=== PATIENT | female | born 1930 | race Caucasian/White ===

== ENCOUNTER 2018-02-16 11:09 | Emergency (ER) | payer MEDICARE, OTHER ==
[~2018-02-16] VITALS: Ht 157.5 cm; Wt 79.8 kg
[~2018-02-16 11:09] MED LIST: AC500T PO; AMOX-358 PO; AMX500CIP; APIX5TAB PO; ASP81TEC PO; BALS750C PO; BENZ100C18 PO; BENZ200C25 PO; CANASA SUPP; CEFD300C PO; CEFD300C3 PO; CEFU500T PO; CETI10CA PO; CETI10TA17 PO; CITA10TA7 PO; CITA10TA70 PO; CLD600T PO; COLAZOL; DIGO-20 PO; FENO135C PO; GFN600TCR PO; GLYC2TAB PO; HYZAAR; IPRA3AMP11 INH; LOSA1TAB15 PO; Loperamide Hcl PO; MERC50TA10 PO; MESA10002 RC; MESALAMINE 1000 MG RC; METF500T5 PO; METH4TAB PO; METO-272 PO; METO25TA PO; MULT1TAB63 PO; OMG1KC PO; PANT40TA3 PO; PRAM0.5T9 PO; PRAM1.5T3 PO; PRD10T PO; SIMV40TA2 PO; TRAM50TA2 PO; WARF5TAB PO; WRF5T PO; [UNRECOGNIZED DRUG - CODE]
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
--- NOTE | 2018-02-16 12:06 | ED Chest Pain ---
General Chief Complaint: Chest Pain Stated Complaint: CP/SOA Nursing Triage Note: ARRIVED VIA EMS FROM [facility]. STATES AT 1000 SHE STARTED FEELING A TWINGE IN HER LEFT ARMPIT THAT DEVELOPED INTO BACK PAIN. Nursing Sepsis Screen: No Definite Risk Source: patient, family Exam Limitations: no limitations History of Present Illness Date Seen by Provider: Feb 16, 2018 Time Seen by Provider: 12:00 Initial Comments The patient is an 87-year-old white female, grandmother of a high school friend of my son's. She was at [employer] this morning and was singing a him when she began to have left-sided chest pain which then radiated to the shoulder and arm pit. She has recently had a pacemaker implantation. The pain is now gone. Timing/Duration: 1-3 hours Severity/Quality: mild Location: substernal, shoulder Radiation: shoulders Modifying Factors: improves with antacids ASA po WASTE REMOVALIST: No NTG SL WASTE REMOVALIST: No Allergies and Home Medications Allergies Coded Allergies: Sulfa (Sulfonamide Antibiotics) (Verified Allergy, Unknown, 07/22/06) Home Medications Acetaminophen 500 Mg Tablet, 1,000 MG PO Q4H PRN for HEADACHE, (Reported) TAKES 2 (500MG) TABLETS Apixaban 5 Mg Tablet, 5 MG PO BID, (Reported) Aspirin 81 Mg Tabec, 162 MG PO DAILY, (Reported) TAKES 2 (81MG) TABLETS Balsalazide Disodium 750 Mg Capsule, 2,250 MG PO BID, (Reported) TAKE 3 (750 MG) TABLETS TID Calcium/Vitamin D 600 Mg Tab, 2 TAB PO HS, (Reported) Cetirizine HCl 10 Mg Tablet, 10 MG PO DAILY PRN for ALLRGIES, (Reported) Citalopram Hydrobromide 10 Mg Tablet, 10 MG PO HS, (Reported) Digoxin 125 Mcg Tablet, 125 MCG PO DAILY, (Reported) Fenofibric Acid (Choline) 135 Mg Capsule.dr, 135 MG PO HS, (Reported) Glycopyrrolate 2 Mg Tablet, 2 MG PO BID, (Reported) Losartan/Hydrochlorothiazide 1 Tab Tablet, 1 TAB PO DAILY, (Reported) Metformin HCl 500 Mg Tablet, 500 MG PO BID, (Reported) Metoprolol Succinate 50 Mg Tab.sr.24h, 50 MG PO HS, (Reported) Multivitamins 1 Ea Tablet, 1 TAB PO DAILY, (Reported) Pramipexole Di-HCl 1.5 Mg Tablet, 1.5 MG PO BID, (Reported) takes morning and noon Simvastatin 40 Mg Tablet, 40 MG PO HS, (Reported) Patient Home Medication List Home Medication List Reviewed: Yes Review of Systems Constitutional: see HPI EENTM: No Symptoms Reported Respiratory: No Symptoms Reported Gastrointestinal: No Symptoms Reported Genitourinary: No Symptoms Reported Musculoskeletal: no symptoms reported Skin: no symptoms reported Psychiatric/Neurological: No Symptoms Reported Endocrine: No Symptoms Reported Hematologic/Lymphatic: No Symptoms Reported Past Ymbfmyl-Sigpya-Ixlbrn Hx Patient Social History Alcohol Use: Denies Use Alcohol Beverage of Choice: Rum Recreational Drug Use: No Smoking Status: Never a Smoker Recent Foreign Travel: No Contact w/Someone Who Travel: No Recent Infectious Disease Expo: No Recent Hopitalizations: No Immunizations Up To Date Tetanus Booster (TDap): More than 5yrs PED Vaccines UTD: No Date of Pneumonia Vaccine: Jan 24, 2013 Date of Influenza Vaccine: Aug 03, 2016 Seasonal Allergies Seasonal Allergies: No Past Medical History Surgeries: Yes (pacemaker) Adenoidectomy, Appendectomy, Cardiac, CABG, Hysterectomy, Orthopedic, Pacemaker , Tonsillectomy Respiratory: No Asthma Currently Using CPAP: No Currently Using BIPAP: No Cardiac: Yes Atrial Fibrillation, Coronary Artery Disease, Hypertension Neurological: Yes Parkinson's Disease 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: No Female 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: 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 Sexually Transmitted Disease: No HIV/AIDS: No Genitourinary: No Gastrointestinal: Yes Colitis Musculoskeletal: Yes Arthritis Endocrine: Yes Diabetes, Non-Insulin dep Cataract Loss of Vision: Denies Hearing Impairment: Hard of Hearing Cancer: No Skin Psychosocial: No Integumentary: No Blood Disorders: No Family Medical History Cardiovascular disease 19 FATHER, , Age:90, Onset:Unknown 19 MOTHER, , Age:86, Onset:Unknown Completed stroke 19 FATHER, , Age:90, Onset:Unknown 19 MOTHER, , Age:86, Onset:Unknown No Family History of: AIDS Abdominal aortic aneurysm [place]'s disease Alcoholism Alzheimer's disease Aphasia Arthritis Asthma Cancer of mouth Cataracts Colon cancer Congenital disease Congenital heart disease Coronary thrombosis Cystic fibrosis Deafness or hearing loss Dementia Diabetes mellitus Drug abuse Dysphasia Fibrocystic disease of breast Gastroenteritis Glaucoma Headache disorder Hypercholesterolemia Hypertension Infertility Kidney disease Myocardial infarction Neoplasm Not obtainable due to adoption Osteoporosis Parkinson's disease Prostate cancer Psychosocial problem Respiratory disorder Seizure disorder Severe allergy Thyroid disease Tuberculosis Visual disorder Heart Disease, Hypertension, Stroke Physical Exam Vital Signs Vital Signs - First Documented 02/16/18 11:09 Temp 98.0 Pulse 75 Resp 18 B/P (MAP) 143/82 (102) Pulse Ox 98 Capillary Refill : Less Than 3 Seconds General Appearance: No Apparent Distress, WD/WN HEENT: Normal ENT Inspection Neck: Normal Inspection Respiratory: Chest Non Tender, Lungs Clear, Normal Breath Sounds, No Accessory Muscle Use, No Respiratory Distress Cardiovascular: Regular Rate, Rhythm, Other Gastrointestinal: Normal Bowel Sounds, No Organomegaly, No Pulsatile Mass, Non Tender Extremity: Normal Capillary Refill, Normal Inspection, Normal Range of Motion, Non Tender, No Calf Tenderness, No Pedal Edema Neurologic/Psychiatric: Alert, Oriented x3, No Motor/Sensory Deficits, Normal Mood/Affect Skin: Normal Color, Warm/Dry Lymphatic: No Adenopathy Progress/Results/Core Measures Lab Results Laboratory Tests Test 02/16/18 11:20 Range/Units White Blood Count 5.8 4.3-11.0 10^3/uL Red Blood Count 4.22 L 4.35-5.85 10^6/uL Hemoglobin 12.1 11.5-16.0 G/DL Hematocrit 36 35-52 % Mean Corpuscular Volume 86 80-99 FL Mean Corpuscular Hemoglobin 29 25-34 PG Mean Corpuscular Hemoglobin Concent 34 32-36 G/DL Red Cell Distribution Width 13.6 10.0-14.5 % Platelet Count 270 130-400 10^3/uL Mean Platelet Volume 11.7 H 7.4-10.4 FL Neutrophils (%) (Auto) 60 42-75 % Lymphocytes (%) (Auto) 28 12-44 % Monocytes (%) (Auto) 11 0-12 % Eosinophils (%) (Auto) 1 0-10 % Basophils (%) (Auto) 1 0-10 % Neutrophils # (Auto) 3.4 1.8-7.8 X 10^3 Lymphocytes # (Auto) 1.6 1.0-4.0 X 10^3 Monocytes # (Auto) 0.6 0.0-1.0 X 10^3 Eosinophils # (Auto) 0.0 0.0-0.3 10^3/uL Basophils # (Auto) 0.0 0.0-0.1 10^3/uL Sodium Level 133 L 135-145 MMOL/L Potassium Level 4.1 3.6-5.0 MMOL/L Chloride Level 100 98-107 MMOL/L Carbon Dioxide Level 21 21-32 MMOL/L Anion Gap 12 5-14 MMOL/L Blood Urea Nitrogen 19 H 7-18 MG/DL Creatinine 0.79 0.60-1.30 MG/DL Estimat Glomerular Filtration Rate > 60 BUN/Creatinine Ratio 24 Glucose Level 108 H 70-105 MG/DL Calcium Level 9.8 8.5-10.1 MG/DL Total Bilirubin 0.5 0.1-1.0 MG/DL Aspartate Amino Transf (AST/SGOT) 22 5-34 U/L Alanine Aminotransferase (ALT/SGPT) 11 0-55 U/L Alkaline Phosphatase 43 40-136 U/L Troponin I < 0.30 <0.30 NG/ML Total Protein 7.3 6.4-8.2 GM/DL Albumin 4.2 3.2-4.5 GM/DL My Orders Orders - JAILYN MILLER MD Ekg Tracing (02/16/18 11:56) Cbc With Automated Diff (02/16/18 11:56) Comprehensive Metabolic Panel (02/16/18 11:56) Troponin I (02/16/18 11:56) Chest 1 View, Ap/Pa Only (02/16/18 11:56) Vital Signs/I&O 02/16/18 11:09 Temp 98.0 Pulse 75 Resp 18 B/P (MAP) 143/82 (102) Pulse Ox 98 Blood Pressure Mean: 102 Departure Communication (Admissions) 1308 the negative workup was reported to the patient and her . Impression Primary Impression: chest pain not myocardial Disposition: 01 HOME, SELF-CARE Condition: Stable/Unchanged Departure-Patient Inst. Decision time for Depature: 13:07 Referrals: DOMINICK BOYD MD (PCP/Family) Primary Care Physician Add. Discharge Instructions: All discharge instructions reviewed with patient and/or family. Voiced understanding. Resume usual activities JAILYN MILLER MD Feb 16, 2018 12:06
[2018-02-16 12:10] LABS: BASOPHILS % (AUTO) 1 % (0-10); EOSINOPHILS % (AUTO) 1 % (0-10); HEMATOCRIT 36 % (35-52); HEMOGLOBIN 12.1 G/DL (11.5-16.0); LYMPHOCYTES # (AUTO) 1.6 X 10^3 (1.0-4.0); LYMPHOCYTES % (AUTO) 28 % (12-44); MEAN CORPUSCULAR HEMOGLOBIN 29 PG (25-34); MEAN CORPUSCULAR HGB CONC 34 G/DL (32-36); MEAN CORPUSCULAR VOLUME 86 FL (80-99); MEAN PLATELET VOLUME 11.7 FL (7.4-10.4); MONOCYTES # (AUTO) 0.6 X 10^3 (0.0-1.0); MONOCYTES % (AUTO) 11 % (0-12); NEUTROPHILS # (AUTO) 3.4 X 10^3 (1.8-7.8); NEUTROPHILS % (AUTO) 60 % (42-75); PLATELET COUNT 270 10^3/uL (130-400); RED BLOOD COUNT 4.22 10^6/uL (4.35-5.85); RED CELL DISTRIBUTION WIDTH 13.6 % (10.0-14.5); WHITE BLOOD COUNT 5.8 10^3/uL (4.3-11.0)
[2018-02-16 12:19] LABS: ALANINE AMINOTRANSFERASE 11 U/L (0-55); ALBUMIN 4.2 GM/DL (3.2-4.5); ALKALINE PHOSPHATASE 43 U/L (40-136); BILIRUBIN,TOTAL 0.5 MG/DL (0.1-1.0); BUN/CREATININE RATIO 24; CALCIUM 9.8 MG/DL (8.5-10.1); CARBON DIOXIDE 21 MMOL/L (21-32); CHLORIDE 100 MMOL/L (98-107); CREATININE SERUM 0.79 MG/DL (0.60-1.30); GFR ESTIMATED > 60; GLUCOSE 108 MG/DL (70-105); POTASSIUM 4.1 MMOL/L (3.6-5.0); SODIUM 133 MMOL/L (135-145); TOTAL PROTEIN 7.3 GM/DL (6.4-8.2)
--- NOTE | 2018-02-16 12:41 | Diagnostic Imaging Report ---
EXAMINATION: Chest radiograph, portable AP view. DATE: 02/16/2018 at 1219 hours. INDICATION: An 87-year-old female, left lower chest pain. COMPARISON: 01/25/2016. FINDINGS: There are median sternotomy wires. There is a left-sided cardiac assist device with right atrial and right ventricular leads. The leads appear intact. There is no identified pneumothorax. There is no large pleural effusion. There is no identified focal airspace consolidation. IMPRESSION: No identified acute cardiopulmonary abnormality. Dictated by: Dictated on workstation # [id number]
[2018-02-16 13:38] VITALS: BP 143/79
== END 2018-02-16 13:38 | disposition home or self-care (01) ==
LOC: EDUNIT# 11:09 → ER 11:10
DX: R07.89 Other chest pain (principal); E11.9 Type 2 diabetes mellitus without complications; G25.81 Restless legs syndrome; I48.91 Unspecified atrial fibrillation; I25.10 Atherosclerotic heart disease of native coronary artery without angina pectoris; I10 Essential (primary) hypertension; Z90.710 Acquired absence of both cervix and uterus; Z87.19 Personal history of other diseases of the digestive system; Z90.89 Acquired absence of other organs; Z90.49 Acquired absence of other specified parts of digestive tract; Z95.1 Presence of aortocoronary bypass graft; Z95.0 Presence of cardiac pacemaker; Z79.84 Long term (current) use of oral hypoglycemic drugs; Z82.49 Family history of ischemic heart disease and other diseases of the circulatory system; Z79.82 Long term (current) use of aspirin; Z88.2 Allergy status to sulfonamides
CPT/HCPCS: 36415; 71045; 80053; 84484; 85025; 93005

== ENCOUNTER → 2018-05-26 | Outpatient (CLI) | payer MEDICARE, OTHER | LOC: CARD 11:10 | PROVIDERS: ATTEND Internal Medicine Cardiovascular Disease | DX: I48.91 Unspecified atrial fibrillation (principal); I25.10 Atherosclerotic heart disease of native coronary artery without angina pectoris; I10 Essential (primary) hypertension; E78.5 Hyperlipidemia, unspecified; I49.5 Sick sinus syndrome; I08.1 Rheumatic disorders of both mitral and tricuspid valves | CPT/HCPCS: 93306 ==

== ENCOUNTER 2018-07-29 06:53 | Inpatient (IN) | payer MEDICARE, OTHER ==
[~2018-07-29] VITALS: Ht 165.1 cm; Wt 76.4 kg
[~2018-07-29 06:53] MED LIST changes: +METF-397 PO; -METF500T5 PO
[2018-07-29] MEDS ORDERED: NS IV 500 ML 500 ML IV ONE (08:25)
[2018-07-29 08:35] LABS: BASOPHILS % (AUTO) 1 % (0-10); EOSINOPHILS % (AUTO) 1 % (0-10); HEMATOCRIT 32 % (35-52); HEMOGLOBIN 10.6 G/DL (11.5-16.0); LYMPHOCYTES % (AUTO) 18 % (12-44); MEAN CORPUSCULAR HEMOGLOBIN 28 PG (25-34); MEAN CORPUSCULAR HGB CONC 33 G/DL (32-36); MEAN CORPUSCULAR VOLUME 85 FL (80-99); MEAN PLATELET VOLUME 10.1 FL (7.4-10.4); MONOCYTES # (AUTO) 0.6 X 10^3 (0.0-1.0); MONOCYTES % (AUTO) 11 % (0-12); NEUTROPHILS # (AUTO) 3.8 X 10^3 (1.8-7.8); NEUTROPHILS % (AUTO) 71 % (42-75); PLATELET COUNT 308 10^3/uL (130-400); RED CELL DISTRIBUTION WIDTH 14.8 % (10.0-14.5); WHITE BLOOD COUNT 5.4 10^3/uL (4.3-11.0)
--- NOTE | 2018-07-29 08:35 | ED GI ---
General Chief Complaint: Rect Problems Stated Complaint: RECTAL BLEEDING Nursing Triage Note: TO ROOM C/O HAS NOTICED RED BLOOD IN STOOL FOR 3 WEEKS. HAS NOT HAD ANY FOLLOW UP WITH HER DR. REPORTS THAT SHE THINKS SHE HAS TO HAVE BM ALL THE TIME AFTER EATING SHE WILL GO TO BATHROOM AND TRY TO HAVE A BM. Sepsis Screen: No Definite Risk Source of Information: Patient Exam Limitations: No Limitations History of Present Illness Date Seen by Provider: Jul 29, 2018 Time Seen by Provider: 08:15 Initial Comments Here with report of blood in her stool or other the toilet paper for the last 3 weeks. Denies any significant pain but does feel like she has to have a bowel movement. She has been unable to have bowel movement has not passed any stool for a week or more. She states that she is still passing gas she believes. Every time she eats she tries to have a bowel movement but is unable to. Denies nausea or vomiting currently. Denies fever or chills. Timing/Duration: Other (3 weeks) Severity/Quality: Mild, Cramping Location: Generalized Abdomen Radiation: No Radiation Activities at Onset: None Modifying Factors: Worsens With Eating Associated Symptoms: No Fever/Chills, No Nausea/Vomiting, No Shortness of Air, No Weakness Allergies and Home Medications Allergies Coded Allergies: Sulfa (Sulfonamide Antibiotics) (Verified Allergy, Unknown, 07/22/06) Home Medications Acetaminophen 500 Mg Tablet, 1,000 MG PO Q4H PRN for HEADACHE, (Reported) TAKES 2 (500MG) TABLETS Apixaban 5 Mg Tablet, 5 MG PO BID, (Reported) Aspirin 81 Mg Tabec, 162 MG PO DAILY, (Reported) TAKES 2 (81MG) TABLETS Balsalazide Disodium 750 Mg Capsule, 2,250 MG PO BID, (Reported) TAKE 3 (750 MG) TABLETS TID Calcium/Vitamin D 600 Mg Tab, 2 TAB PO HS, (Reported) Cetirizine HCl 10 Mg Tablet, 10 MG PO DAILY PRN for ALLRGIES, (Reported) Citalopram Hydrobromide 10 Mg Tablet, 10 MG PO HS, (Reported) Digoxin 125 Mcg Tablet, 125 MCG PO DAILY, (Reported) Fenofibric Acid (Choline) 135 Mg Capsule.dr, 135 MG PO HS, (Reported) Glycopyrrolate 2 Mg Tablet, 2 MG PO BID, (Reported) Losartan/Hydrochlorothiazide 1 Tab Tablet, 1 TAB PO DAILY, (Reported) Metformin HCl 500 Mg Tablet, 500 MG PO BID, (Reported) Metoprolol Succinate 50 Mg Tab.sr.24h, 50 MG PO HS, (Reported) Multivitamins 1 Ea Tablet, 1 TAB PO DAILY, (Reported) Pramipexole Di-HCl 1.5 Mg Tablet, 1.5 MG PO BID, (Reported) takes morning and noon Simvastatin 40 Mg Tablet, 40 MG PO HS, (Reported) Patient Home Medication List Home Medication List Reviewed: Yes Review of Systems Review of Systems Constitutional: see HPI; No chills, No fever EENTM: No Symptoms Reported Respiratory: No Symptoms Reported Cardiovascular: No Symptoms Reported Gastrointestinal: See HPI, Constipated; Denies Nausea; Rectal Bleeding; Denies Vomiting Genitourinary: No Symptoms Reported Musculoskeletal: no symptoms reported All Other Systems Reviewed Negative Unless Noted: Yes Past Ojvpskl-Xuxqic-Loknmx Hx Past Med/Social Hx: Reviewed Nursing Past Med/Soc Hx Patient Social History Alcohol Use: Occasionally Uses Number of Drinks Today: DD Alcohol Beverage of Choice: Beer, Wine Recreational Drug Use: No Smoking Status: Never a Smoker Recent Foreign Travel: No Contact w/Someone Who Travel: No Recent Infectious Disease Expo: No Recent Hopitalizations: No Immunizations Up To Date Tetanus Booster (TDap): More than 5yrs PED Vaccines UTD: No Date of Pneumonia Vaccine: Jan 24, 2013 Date of Influenza Vaccine: Aug 03, 2016 Seasonal Allergies Seasonal Allergies: No Past Medical History Surgeries: Yes (pacemaker) Adenoidectomy, Appendectomy, Cardiac, CABG, Hysterectomy, Orthopedic, Pacemaker , Tonsillectomy Respiratory: No Asthma Currently Using CPAP: No Currently Using BIPAP: No Cardiac: Yes Atrial Fibrillation, Coronary Artery Disease, Hypertension Neurological: Yes Parkinson's Disease 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: No Female 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: 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 Sexually Transmitted Disease: No HIV/AIDS: No Genitourinary: No Gastrointestinal: Yes Colitis Musculoskeletal: Yes Arthritis Endocrine: Yes Diabetes, Non-Insulin dep Cataract Loss of Vision: Denies Hearing Impairment: Hard of Hearing Cancer: No Skin Psychosocial: No Integumentary: No Blood Disorders: No Family Medical History Reviewed Nursing Family Hx Cardiovascular disease 19 FATHER, , Age:90, Onset:Unknown 19 MOTHER, , Age:86, Onset:Unknown Completed stroke 19 FATHER, , Age:90, Onset:Unknown 19 MOTHER, , Age:86, Onset:Unknown No Family History of: AIDS Abdominal aortic aneurysm [place]'s disease Alcoholism Alzheimer's disease Aphasia Arthritis Asthma Cancer of mouth Cataracts Colon cancer Congenital disease Congenital heart disease Coronary thrombosis Cystic fibrosis Deafness or hearing loss Dementia Diabetes mellitus Drug abuse Dysphasia Fibrocystic disease of breast Gastroenteritis Glaucoma Headache disorder Hypercholesterolemia Hypertension Infertility Kidney disease Myocardial infarction Neoplasm Not obtainable due to adoption Osteoporosis Parkinson's disease Prostate cancer Psychosocial problem Respiratory disorder Seizure disorder Severe allergy Thyroid disease Tuberculosis Visual disorder Heart Disease, Hypertension, Stroke Physical Exam Vital Signs Vital Signs - First Documented 07/29/18 06:58 Temp 97.3 Pulse 70 Resp 18 B/P (MAP) 152/79 (103) Pulse Ox 98 O2 Delivery Room Air Capillary Refill : Less Than 3 Seconds Height/Weight/BMI Height: 5'4.00" Weight: 180lbs. 0.0oz. 81.536713wv; 30.9 BMI Method:Stated General Appearance: WD/WN, no apparent distress HEENT: PERRL/EOMI, pharynx normal Neck: full range of motion, supple Respiratory: lungs clear, normal breath sounds Cardiovascular: regular rate, rhythm, no murmur Gastrointestinal: normal bowel sounds, non tender, soft, no pulsatile mass Extremities: normal range of motion, non-tender, normal inspection Back: normal inspection, no CVA tenderness, no vertebral tenderness Neurologic/Psychiatric: alert, oriented x 3 Skin: normal color, warm/dry Progress/Results/Core Measures Results/Orders Lab Results Laboratory Tests Test 07/29/18 08:25 07/29/18 10:35 Range/Units White Blood Count 5.4 4.3-11.0 10^3/uL Red Blood Count 3.80 L 4.35-5.85 10^6/uL Hemoglobin 10.6 L 11.5-16.0 G/DL Hematocrit 32 L 35-52 % Mean Corpuscular Volume 85 80-99 FL Mean Corpuscular Hemoglobin 28 25-34 PG Mean Corpuscular Hemoglobin Concent 33 32-36 G/DL Red Cell Distribution Width 14.8 H 10.0-14.5 % Platelet Count 308 130-400 10^3/uL Mean Platelet Volume 10.1 7.4-10.4 FL Neutrophils (%) (Auto) 71 42-75 % Lymphocytes (%) (Auto) 18 12-44 % Monocytes (%) (Auto) 11 0-12 % Eosinophils (%) (Auto) 1 0-10 % Basophils (%) (Auto) 1 0-10 % Neutrophils # (Auto) 3.8 1.8-7.8 X 10^3 Lymphocytes # (Auto) 1.0 1.0-4.0 X 10^3 Monocytes # (Auto) 0.6 0.0-1.0 X 10^3 Eosinophils # (Auto) 0.0 0.0-0.3 10^3/uL Basophils # (Auto) 0.0 0.0-0.1 10^3/uL Sodium Level 133 L 135-145 MMOL/L Potassium Level 4.2 3.6-5.0 MMOL/L Chloride Level 101 98-107 MMOL/L Carbon Dioxide Level 22 21-32 MMOL/L Anion Gap 10 5-14 MMOL/L Blood Urea Nitrogen 17 7-18 MG/DL Creatinine 0.80 0.60-1.30 MG/DL Estimat Glomerular Filtration Rate > 60 BUN/Creatinine Ratio 21 Glucose Level 127 H 70-105 MG/DL Calcium Level 9.6 8.5-10.1 MG/DL Corrected Calcium 9.6 8.5-10.1 MG/DL Total Bilirubin 0.5 0.1-1.0 MG/DL Aspartate Amino Transf (AST/SGOT) 22 5-34 U/L Alanine Aminotransferase (ALT/SGPT) 12 0-55 U/L Alkaline Phosphatase 32 L 40-136 U/L C-Reactive Protein High Sensitivity 1.13 H 0.00-0.50 MG/DL Total Protein 7.2 6.4-8.2 GM/DL Albumin 4.0 3.2-4.5 GM/DL Urine Color YELLOW Urine Clarity CLEAR Urine pH 7 5-9 Urine Specific [place] 1.005 L 1.016-1.022 Urine Protein NEGATIVE NEGATIVE Urine Glucose (UA) NEGATIVE NEGATIVE Urine Ketones NEGATIVE NEGATIVE Urine Nitrite NEGATIVE NEGATIVE Urine Bilirubin NEGATIVE NEGATIVE Urine Urobilinogen NORMAL NORMAL MG/DL Urine Leukocyte Esterase NEGATIVE NEGATIVE Urine RBC (Auto) NEGATIVE NEGATIVE Urine RBC NONE /HPF Urine WBC 0-2 /HPF Urine Squamous Epithelial Cells 2-5 /HPF Urine Crystals NONE /LPF Urine Bacteria NEGATIVE /HPF Urine Casts NONE /LPF Urine Mucus NEGATIVE /LPF Urine Culture Indicated NO My Orders Orders - LANG,PEDRO D MD Cbc With Automated Diff (07/29/18 08:25) Comprehensive Metabolic Panel (07/29/18 08:25) Hs C Reactive Protein (07/29/18 08:25) Ua Culture If Indicated (07/29/18 08:25) Saline Lock/Iv-Start (07/29/18 08:25) Ns Iv 500 Ml (Sodium Chloride 0.9%) (07/29/18 08:25) Ct Abdomen/Pelvis W (07/29/18 08:57) Iohexol Injection (Omnipaque 350 Mg/Ml 1 (07/29/18 09:15) Ns (Ivpb) (Sodium Chloride 0.9%) (07/29/18 09:15) Contrast Received (Contrast Received) (07/29/18 09:30) Medications Given in ED Current Medications Medications Dose Ordered Sig/Maricarmen Route Start Time Stop Time Status Last Admin Dose Admin Iohexol 100 ml ONCE ONCE IV 07/29/18 09:15 07/29/18 09:16 DC 07/29/18 09:37 100 ML Sodium Chloride 250 ml ONCE ONCE IV 07/29/18 09:15 07/29/18 09:16 DC 07/29/18 09:37 80 ML Sodium Chloride 500 ml @ 0 mls/hr Q0M ONCE IV 07/29/18 08:25 07/29/18 08:29 DC 07/29/18 10:09 500 MLS/HR Vital Signs/I&O 07/29/18 06:58 Temp 97.3 Pulse 70 Resp 18 B/P (MAP) 152/79 (103) Pulse Ox 98 O2 Delivery Room Air Blood Pressure Mean: 103 Progress Progress Note : Progress Note Seen and evaluated. Rectal exam done and rectal vault is empty. Hemoccult positive stool. There is small hemorrhoid at the 12 o'clock position but nonbleeding currently. Given the absence of stool in the vault and the history of rectal bleeding, we will evaluate labs and possibly get CT scan. 0930: CT scan ordered and pending. Normal saline 500 mL bolus has been ordered. Monitor patient. 1130: Labs complete and CT results noted. I did discuss with her about outpatient options. With her are having difficulties with understanding of instructions and there is concerns about her ability to safely manage this at home at this point. Considering admission. I did discuss the case with Dr. Ford at 1147 he agrees to see the patient in consult. I did discuss the case with Dr. Mitchell at 1229 and she accepts patient for admission, inpatient status. She will write orders. Patient and family agree with plan. Diagnostic Imaging Diagonstic Imaging: CT Plain Films/CT/US/NM/MRI: abdomen, pelvis Comments VIA [facility] [place], [place] NAME: JEREMÍAS COLEMAN [facility] REC#: [id number] PT STATUS: REG ER : 1929 PHYSICIAN: PEDRO CROFT MD ADMIT DATE: 07/29/18/ER Draft Date of Exam:07/29/18 CT ABDOMEN/PELVIS W PROCEDURE: CT abdomen and pelvis with contrast. TECHNIQUE: Multiple contiguous axial images were obtained through the abdomen and pelvis after administration of intravenous contrast. INDICATION: Rectal bleeding. FINDINGS: There is cardiomegaly. The liver is normal in size without focal lesions. Gallbladder is surgically absent. There is no biliary ductal dilatation. Spleen is normal. The pancreas and adrenal glands are unremarkable. Kidneys are normal in appearance. Aorta is nonaneurysmal although does demonstrate moderate atherosclerotic calcification. Bowel gas pattern is nonspecific. There is a large amount of retained fecal material likely reflecting some degree of constipation. There is some mild mucosal thickening in the sigmoid colon and rectum. This is nonspecific however a colitis cannot be excluded. Bladder is normal. There are degenerative changes in the spine. IMPRESSION: Moderate amount of retained fecal material likely reflecting some degree of constipation. Additionally, there is some mucosal thickening of the sigmoid colon and rectum possibly reflecting colitis. Recommend clinical correlation. Degenerative changes in the spine. No other acute abnormality of the abdomen or pelvis. Dictated on workstation # [id number] Dict: 07/29/18 0956 Trans: 07/29/18 1017 DOMINGO [id number] Interpreted by: RAMAKRISHNA JOHNSON MD Electronically signed by: Reviewed: Reviewed by Me Departure Communication (Admissions) Time/Spoke to Admitting Phy: 12:29 Time/Spoke to Consulting Phy: 11:47 Impression Primary Impression: Colitis Additional Impressions: Rectal bleeding Constipation Qualified Codes: K59.00 - Constipation, unspecified Disposition: ADMITTED INPATIENT Condition: Stable Admissions Decision to Admit Reason: Admit from ER (General) Decision to Admit/Date: Jul 29, 2018 Time/Decision to Admit Time: 11:47 Departure-Patient Inst. Referrals: DOMINICK BOYD MD (PCP/Family) Primary Care Physician PEDRO CROFT MD Jul 29, 2018 08:35
[2018-07-29 08:49] LABS: ALANINE AMINOTRANSFERASE 12 U/L (0-55); ALKALINE PHOSPHATASE 32 U/L (40-136); BILIRUBIN,TOTAL 0.5 MG/DL (0.1-1.0); BUN/CREATININE RATIO 21; CALCIUM 9.6 MG/DL (8.5-10.1); CARBON DIOXIDE 22 MMOL/L (21-32); CHLORIDE 101 MMOL/L (98-107); GFR ESTIMATED > 60; GLUCOSE 127 MG/DL (70-105); POTASSIUM 4.2 MMOL/L (3.6-5.0); SODIUM 133 MMOL/L (135-145); TOTAL PROTEIN 7.2 GM/DL (6.4-8.2)
[2018-07-29] MEDS ORDERED: IOHEXOL 350 MG/ML 100 ML (OMNIPAQUE 350) VIAL IV ONE (09:15)
[2018-07-29] MEDS ORDERED: NS 250 ML (IVPB) BAG IV ONE (09:15)
[2018-07-29] MEDS ORDERED: RECEIVED CONTRAST (Hold Metformin) IV SCH (09:30)
--- NOTE | 2018-07-29 10:18 | Diagnostic Imaging Report ---
PROCEDURE: CT abdomen and pelvis with contrast. TECHNIQUE: Multiple contiguous axial images were obtained through the abdomen and pelvis after administration of intravenous contrast. INDICATION: Rectal bleeding. FINDINGS: There is cardiomegaly. The liver is normal in size without focal lesions. Gallbladder is surgically absent. There is no biliary ductal dilatation. Spleen is normal. The pancreas and adrenal glands are unremarkable. Kidneys are normal in appearance. Aorta is nonaneurysmal although does demonstrate moderate atherosclerotic calcification. Bowel gas pattern is nonspecific. There is a large amount of retained fecal material likely reflecting some degree of constipation. There is some mild mucosal thickening in the sigmoid colon and rectum. This is nonspecific however a colitis cannot be excluded. Bladder is normal. There are degenerative changes in the spine. IMPRESSION: Moderate amount of retained fecal material likely reflecting some degree of constipation. Additionally, there is some mucosal thickening of the sigmoid colon and rectum possibly reflecting colitis. Recommend clinical correlation. Degenerative changes in the spine. No other acute abnormality of the abdomen or pelvis. Dictated by: Dictated on workstation # [id number]
[2018-07-29 10:50] LABS: BILIRUBIN,URINE NEGATIVE (NEGATIVE); CLARITY,URINE CLEAR; COLOR,URINE YELLOW; GLUCOSE, URINE (UA) NEGATIVE (NEGATIVE); KETONES,URINE NEGATIVE (NEGATIVE); LEUKOCYTE ESTERASE ,URINE NEGATIVE (NEGATIVE); NITRITE,URINE NEGATIVE (NEGATIVE); PH,URINE 7 (5-9); PROTEIN,URINE NEGATIVE (NEGATIVE); UROBILINOGEN,URINE NORMAL (NORMAL)
[2018-07-29 11:08] LABS: BACTERIA,URINE NEGATIVE /HPF; WBC,URINE 0-2 /HPF
--- OUTSIDE RECORDS SUMMARY | 2018-07-29 12:54 | XMS REPORT | Continuity of Care Document ---
Author Author [facility] Organization [facility] Address Unknown Phone Unavailable Allergies Active Description Code Type Severity Reaction Onset Reported/Identified Relationship to Patient Clinical Status Yes promethazine [id number] Drug Allergy Unknown N/A 06/07/2006 Yes codeine [id number] Drug Allergy Unknown N/A 07/22/2006 Yes Sulfa (Sulfonamide Antibiotics) [id number] Drug Allergy Unknown N/A 2005 Medications There [...] DEB ROBERTO, DOMINICK Guerra Ot V76.12 12/05/2014 EDB ROBERTO, DOMINICK Guerra Ot 298.9 12/05/2014 DEB [...] DOMINICK Guerra Ot V12.54 06/20/2015 DEB ROBERTO, DOMINIKC Guerra Ot V76.12 07/12/2015 SHEKHAR UMANA Ot [...] PRASHANT ROBERTO, ADI Suarez Ot 429.3 09/22/2015 PRASHANT ROBERTO, ADI Suarez Ot V45.01 09/22/2015 PRASHANT ROBERTO, ADI [...] ROBERTO, ADI Suarez Ot V45.01 10/02/2015 PRASHANT ROBERTO, ADI Suarez Ot 401.9 [...] MD Ot I25.10 ATHSCL HEART DISEASE OF [place] CORONARY 10/03/2015 DOMINICK BOYD MD Ot I48.0 PAROXYSMAL ATRIAL FIBRILLATION 10/03/2015 DOMINICK BOYD MD Ot J01.00 ACUTE MAXILLARY SINUSITIS, UNSPECIFIED 10/03/2015 DOMINICK BYOD MD Ot J40 BRONCHITIS, NOT SPECIFIED ACUTE OR CH 10/03/2015 DOMINICK BOYD MD Ot J98.09 OTHER DISEASES OF BRONCHUS, NOT ELSEWHER 10/03/2015 DOMINICK BOYD MD Ot Z79.01 COMPENSATION DIRECTOR (CURRENT) USE OF ANTICOAGULANT 10/12/2015 Ot V76.12 [...] DOMINICK BOYD MD Ot V76.12 10/12/2015 DOMINICK BOYD MD Ot 298.9 10/12/2015 DOMINICK BOYD MD [...] PAC 01/26/2016 ADI CERDA MD Ot Z79.01 COMPENSATION DIRECTOR (CURRENT) USE OF ANTICOAGULANT 01/26/2016 ADI CERDA MD Ot Z79.899 OTHER SNF (CURRENT) DRUG THERAPY 02/06/2016 ADI CERDA MD [...] PAC 02/06/2016 ADI CERDA MD Ot Z79.01 SNF (CURRENT) USE OF ANTICOAGULANT 02/06/2016 ADI CERDA MD Ot Z79.899 OTHER SNF (CURRENT) DRUG THERAPY 07/24/2016 Ot 397.0 TRICUSPID [...] PERSONAL HX OF TIA, CEREBRAL INFARCTION 07/24/2016 DOIMNICK BOYD MD Ot V76.12 OTH SCREEN MAMMO-MALIGN [...] CAUSE STATUS 07/24/2016 CHANELL HORN Ot Z79.82 COMPENSATION DIRECTOR (CURRENT) USE OF ASPIRIN 07/24/2016 CHANELL HORN Ot Z79.899 OTHER COMPENSATION DIRECTOR (CURRENT) DRUG THERAPY 07/24/2016 CHANELL HORN Ot [...] CAUSE STATUS 07/25/2016 CHANELL HORN Ot Z79.82 SNF (CURRENT) USE OF ASPIRIN 07/25/2016 CHANELL HORN Ot Z79.899 OTHER SNF (CURRENT) DRUG THERAPY 07/25/2016 CHANELL HORN Ot [...] STATUS 09/30/2016 BK BETANCUR APRN Ot Z79.82 SNF (CURRENT) USE OF ASPIRIN 09/30/2016 BK BETANCUR APRN Ot Z79.84 COMPENSATION DIRECTOR (CURRENT) USE OF ORAL HYPOGLYC 09/30/2016 BK BETANCUR APRN Ot Z79.899 OTHER COMPENSATION DIRECTOR (CURRENT) DRUG THERAPY 10/02/2016 BK BETANCUR APRN [...] STATUS 10/02/2016 BK BETANCUR APRN Ot Z79.82 SNF (CURRENT) USE OF ASPIRIN 10/02/2016 BK BETANCUR APRN Ot Z79.84 SNF (CURRENT) USE OF ORAL HYPOGLYC 10/02/2016 BK BETANCUR APRN Ot Z79.899 OTHER SNF (CURRENT) DRUG THERAPY 10/02/2016 BK BETANCUR APRN [...] STATUS 10/02/2016 BK BETANCUR APRN Ot Z79.82 SNF (CURRENT) USE OF ASPIRIN 10/02/2016 BK BETANCUR APRN Ot Z79.84 SNF (CURRENT) USE OF ORAL HYPOGLYC 10/02/2016 BK BETANCUR APRN Ot Z79.899 OTHER COMPENSATION DIRECTOR (CURRENT) DRUG THERAPY 10/17/2016 Ot V76.12 OTH SCREEN MAMMO-MALIGN NEOPLASM OF [place] 10/17/2016 Ot V76.12 OTH SCREEN MAMMO-MALIGN NEOPLASM OF [place] 10/17/2016 Ot 813.05 FX RADIUS HEAD-CLOSED 10/17/2016 Ot E000.8 OTHER EXTERNAL CAUSE STATUS 10/17/2016 Ot E849.0 ACCIDENT IN HOME 10/17/2016 Ot E888.9 FALL NOS 10/17/2016 ADI CERDA MD Ot 397.0 TRICUSPID VALVE DISEASE 10/17/2016 ADI CERDA MD Ot 401.9 HYPERTENSION [...] Ot V76.12 OTH SCREEN MAMMO-MALIGN NEOPLASM OF [place] 06/04/2017 DOMINICK BOYD MD Ot 298.9 PSYCHOSIS NOS 06/04/2017 DOMINICK BOYD MD 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 06/04/2017 DOMINICK BOYD MD Ot V12.54 PERSONAL HX OF TIA, CEREBRAL INFARCTION 06/04/2017 DOMINICK BOYD MD Ot V76.12 OTH SCREEN MAMMO-MALIGN NEOPLASM OF [place] 06/04/2017 SHEKHAR UMANA K Ot 272.4 HYPERLIPIDEMIA NEC/NOS 06/04/2017 MARIELENA UMANATH K Ot 401.9 HYPERTENSION NOS 06/04/2017 MARIELENA MUANATH K Ot 414.00 CORON ATHEROSCLER NOS TYPE VESSEL, NATIV 06/04/2017 MARIANNE CRAWFORD SHEKHAR K Ot 427.31 ATRIAL FIBRILLATION 02/16/2018 ADI CERDA MD Ot 397.0 TRICUSPID VALVE DISEASE 02/16/2018 ADI CERDA MD Ot 401.9 HYPERTENSION NOS 02/16/2018 ADI CERDA MD Ot 414.00 CORON ATHEROSCLER NOS TYPE VESSEL, NATIV 02/16/2018 ADI CERDA MD Ot 424.0 MITRAL VALVE DISORDER 02/16/2018 ADI CERDA MD Ot 429.3 CARDIOMEGALY 02/16/2018 ADI CERDA MD Ot V45.01 CARDIAC PACEMAKER IN SITU 02/16/2018 ADI CERDA MD Ot 401.9 HYPERTENSION NOS 02/16/2018 ADI CERDA MD Ot 414.00 CORON ATHEROSCLER NOS TYPE VESSEL, NATIV 02/16/2018 ADI CERDA MD Ot V45.01 CARDIAC PACEMAKER IN SITU 02/16/2018 DOMINICK BOYD MD Ot V76.12 OTH SCREEN MAMMO-MALIGN NEOPLASM OF [place] 02/16/2018 DOMINICK BOYD MD Ot 298.9 PSYCHOSIS NOS 02/16/2018 DOMINICK BOYD MD 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 02/16/2018 DOMINICK BOYD MD Ot V12.54 PERSONAL HX OF TIA, CEREBRAL INFARCTION 02/16/2018 DOMINICK BOYD MD Ot V76.12 OTH SCREEN MAMMO-MALIGN NEOPLASM OF [place] 02/16/2018 SHEKHAR UMANA Ot 272.4 HYPERLIPIDEMIA NEC/NOS 02/16/2018 SHEKHAR UMANA Ot 401.9 HYPERTENSION NOS 02/16/2018 SHEKHAR UMANA Ot 414.00 CORON ATHEROSCLER NOS TYPE VESSEL, NATIV 02/16/2018 SHEKHAR UMANA Ot 427.31 ATRIAL FIBRILLATION 02/16/2018 JAILYN MILLER MD, Ot E11.9 TYPE 2 DIABETES MELLITUS WITHOUT COMPLIC 02/16/2018 JAILYN MILLER MD, Ot G25.81 RESTLESS LEGS SYNDROME 02/16/2018 JAILYN MILLER MD, Ot I10 ESSENTIAL (PRIMARY) HYPERTENSION 02/16/2018 JAILYN MILLER MD, Ot I25.10 ATHSCL HEART DISEASE OF [place] CORONARY 02/16/2018 JAILYN MILLER MD, Ot I48.91 UNSPECIFIED ATRIAL FIBRILLATION 02/16/2018 JAILYN MILLER MD, Ot R07.89 OTHER CHEST PAIN 02/16/2018 JAILYN MILLER MD, Ot Z79.82 SNF (CURRENT) USE OF ASPIRIN 02/16/2018 JALIYN MILLER MD, Ot Z79.84 SNF (CURRENT) USE OF ORAL HYPOGLYC 02/16/2018 JAILYN MILLER MD, Ot Z82.49 FAMILY HX OF ISCHEM HEART DIS AND OTH DI 02/16/2018 JAILYN MILLER MD, Ot Z87.19 PERSONAL HISTORY OF OTHER DISEASES OF TH 02/16/2018 JAILYN MILLER MD, Ot Z88.2 ALLERGY STATUS TO SULFONAMIDES STATUS 02/16/2018 JAILYN MILLER MD, Ot Z90.49 ACQUIRED ABSENCE OF OTHER SPECIFIED PART 02/16/2018 JAILYN MILLER MD, Ot Z90.710 ACQUIRED ABSENCE OF BOTH CERVIX AND UTER 02/16/2018 JAILYN MILLER MD, Ot Z90.89 ACQUIRED ABSENCE OF OTHER ORGANS 02/16/2018 JAILYN MILLER MD Ot Z95.0 PRESENCE OF CARDIAC PACEMAKER 02/16/2018 JAILYN MILLER MD Ot Z95.1 PRESENCE OF AORTOCORONARY BYPASS GRAFT 06/17/2018 ADI CERDA MD Ot E78.5 HYPERLIPIDEMIA, UNSPECIFIED 06/17/2018 ADI CERDA MD Ot I08.1 RHEUMATIC DISORDERS OF BOTH MITRAL AND T 06/17/2018 ADI CERDA MD Ot I10 ESSENTIAL (PRIMARY) HYPERTENSION 06/17/2018 ADI CERDA MD Ot I25.10 ATHSCL HEART DISEASE OF [place] CORONARY 06/17/2018 ADI CERDA MD Ot I48.91 UNSPECIFIED ATRIAL FIBRILLATION 06/17/2018 ADI CERDA MD Ot I49.5 SICK SINUS SYNDROME 06/28/2018 ADI CERDA MD Ot 397.0 TRICUSPID VALVE DISEASE 06/28/2018 ADI CERDA MD Ot 401.9 HYPERTENSION NOS 06/28/2018 ADI CERDA MD Ot 414.00 CORON ATHEROSCLER NOS TYPE VESSEL, NATIV 06/28/2018 ADI CERDA MD Ot 424.0 MITRAL VALVE DISORDER 06/28/2018 ADI CERDA MD Ot 429.3 CARDIOMEGALY 06/28/2018 ADI CERDA MD Ot V45.01 CARDIAC PACEMAKER IN SITU 06/28/2018 ADI CERDA MD Ot 401.9 HYPERTENSION NOS 06/28/2018 ADI CERDA MD Ot 414.00 CORON ATHEROSCLER NOS TYPE VESSEL, NATIV 06/28/2018 ADI CERDA MD Ot V45.01 CARDIAC PACEMAKER IN SITU 06/28/2018 DOMINICK BOYD MD Ot V76.12 OTH SCREEN MAMMO-MALIGN NEOPLASM OF [place] 06/28/2018 DOMINICK BOYD MD Ot 298.9 PSYCHOSIS NOS 06/28/2018 DOMINICK BOYD MD 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 06/28/2018 DOMINICK BOYD MD Ot V12.54 PERSONAL HX OF TIA, CEREBRAL INFARCTION 06/28/2018 DOMINICK BOYD MD Ot V76.12 OTH SCREEN MAMMO-MALIGN NEOPLASM OF [place] 06/28/2018 SHEKHAR UMANA Ot 272.4 HYPERLIPIDEMIA NEC/NOS 06/28/2018 SHEKHAR UMANA Ot 401.9 HYPERTENSION NOS 06/28/2018 SHEKHAR UMANA Ot 414.00 CORON ATHEROSCLER NOS TYPE VESSEL, NATIV 06/28/2018 SHEKHAR UMANA Ot 427.31 ATRIAL FIBRILLATION 06/28/2018 ADI CERDA MD Ot E78.5 HYPERLIPIDEMIA, UNSPECIFIED 06/28/2018 ADI CERDA MD Ot I08.1 RHEUMATIC DISORDERS OF BOTH [place] AND T 06/28/2018 ADI CERDA MD Ot I10 ESSENTIAL (PRIMARY) HYPERTENSION 06/28/2018 ADI CERDA MD Ot I25.10 ATHSCL HEART DISEASE OF [place] CORONARY 06/28/2018 ADI CERDA MD Ot I48.91 UNSPECIFIED ATRIAL FIBRILLATION 06/28/2018 ADI CERDA MD Ot I49.5 SICK SINUS SYNDROME 07/04/2018 ADI CERDA MD Ot E78.5 HYPERLIPIDEMIA, UNSPECIFIED 07/04/2018 ADI CERDA MD Ot I08.1 RHEUMATIC DISORDERS OF BOTH [place] AND T 07/04/2018 ADI CERDA MD Ot I10 ESSENTIAL (PRIMARY) HYPERTENSION 07/04/2018 ADI CERDA MD Ot I25.10 ATHSCL HEART DISEASE OF [place] CORONARY 07/04/2018 ADI CERDA MD Ot I48.91 UNSPECIFIED ATRIAL FIBRILLATION 07/04/2018 ADI CERDA MD Ot I49.5 SICK SINUS SYNDROME 07/29/2018 ADI CERDA MD Ot 397.0 TRICUSPID VALVE DISEASE 07/29/2018 ADI CERDA MD Ot 401.9 HYPERTENSION NOS 07/29/2018 ADI CERDA MD Ot 414.00 CORON ATHEROSCLER NOS TYPE VESSEL, NATIV 07/29/2018 ADI CERDA MD Ot 424.0 MITRAL VALVE DISORDER 07/29/2018 ADI CERDA MD Ot 429.3 CARDIOMEGALY 07/29/2018 ADI CERDA MD Ot V45.01 CARDIAC PACEMAKER IN SITU 07/29/2018 ADI CERDA MD Ot 401.9 HYPERTENSION NOS 07/29/2018 ADI CERDA MD Ot 414.00 CORON ATHEROSCLER NOS TYPE VESSEL, NATIV 07/29/2018 ADI CERDA MD Ot V45.01 CARDIAC PACEMAKER IN SITU 07/29/2018 DOMINICK BOYD MD, Ot V76.12 OTH SCREEN MAMMO-MALIGN NEOPLASM OF [place] 07/29/2018 DOMINICK BOYD MD Ot 298.9 PSYCHOSIS NOS 07/29/2018 DOMINICK BOYD MD 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 07/29/2018 DOMINICK BOYD MD, Ot V12.54 PERSONAL HX OF TIA, CEREBRAL INFARCTION 07/29/2018 DOMINICK BOYD MD, Ot V76.12 OTH SCREEN MAMMO-MALIGN NEOPLASM OF [place] 07/29/2018 SHEKHAR UMANA Ot 272.4 HYPERLIPIDEMIA NEC/NOS 07/29/2018 SHEKHAR UMANA Ot 401.9 HYPERTENSION NOS 07/29/2018 SHEKHAR UMANA Ot 414.00 CORON ATHEROSCLER NOS TYPE VESSEL, NATIV 07/29/2018 SHEKHAR UMANA Ot 427.31 ATRIAL FIBRILLATION 07/29/2018 ADI CERDA MD Ot E78.5 HYPERLIPIDEMIA, UNSPECIFIED 07/29/2018 ADI CERDA MD, Ot I08.1 RHEUMATIC DISORDERS OF BOTH [place] AND T 07/29/2018 ADI CERDA MD Ot I10 ESSENTIAL (PRIMARY) HYPERTENSION 07/29/2018 ADI CERDA MD, Ot I25.10 ATHSCL HEART DISEASE OF [place] CORONARY 07/29/2018 ADI CERDA MD, Ot I48.91 UNSPECIFIED ATRIAL FIBRILLATION 07/29/2018 ADI CERDA MD, Ot I49.5 SICK SINUS SYNDROME Procedures There is no data. Results Test Result Range Complete blood count (CBC) with automated white blood cell (WBC) differential - 02/16/18 11:20 Blood leukocytes automated count (number/volume) 5.8 10*3/uL 4.3-11.0 Blood erythrocytes automated count (number/volume) 4.22 10*6/uL 4.35-5.85 Venous blood hemoglobin measurement (mass/volume) 12.1 g/dL 11.5-16.0 Blood hematocrit (volume fraction) 36 % 35-52 Automated erythrocyte mean corpuscular volume 86 [foz_us] 80-99 Automated erythrocyte mean corpuscular hemoglobin (mass per erythrocyte) 29 pg 25-34 Automated erythrocyte mean corpuscular hemoglobin concentration measurement ( mass/volume) 34 g/dL 32-36 Automated erythrocyte distribution width ratio 13.6 % 10.0-14.5 Automated blood platelet count (count/volume) 270 10*3/uL 130-400 Automated blood platelet mean volume measurement 11.7 [foz_us] 7.4-10.4 Automated blood neutrophils/100 leukocytes 60 % 42-75 Automated blood lymphocytes/100 leukocytes 28 % 12-44 Blood monocytes/100 leukocytes 11 % 0-12 Automated blood eosinophils/100 leukocytes 1 % 0-10 Automated blood basophils/100 leukocytes 1 % 0-10 Blood neutrophils automated count (number/volume) 3.4 10*3 1.8-7.8 Blood lymphocytes automated count (number/volume) 1.6 10*3 1.0-4.0 Blood monocytes automated count (number/volume) 0.6 10*3 0.0-1.0 Automated eosinophil count 0.0 10*3/uL 0.0-0.3 Automated blood basophil count (count/volume) 0.0 10*3/uL 0.0-0.1 Comprehensive metabolic panel - 02/16/18 11:20 Serum or plasma sodium measurement (moles/volume) 133 mmol/L 135-145 Serum or plasma potassium measurement (moles/volume) 4.1 mmol/L 3.6-5.0 Serum or plasma chloride measurement (moles/volume) 100 mmol/L 98-107 Carbon dioxide 21 mmol/L 21-32 Serum or plasma anion gap determination (moles/volume) 12 mmol/L 5-14 Serum or plasma urea nitrogen measurement (mass/volume) 19 mg/dL 7-18 Serum or plasma creatinine measurement (mass/volume) 0.79 mg/dL 0.60-1.30 Serum or plasma urea nitrogen/creatinine mass ratio 24 NRG Serum or plasma creatinine measurement with calculation of estimated glomerular filtration rate > NRG Serum or plasma glucose measurement (mass/volume) 108 mg/dL 70-105 Serum or plasma calcium measurement (mass/volume) 9.8 mg/dL 8.5-10.1 Serum or plasma total bilirubin measurement (mass/volume) 0.5 mg/dL 0.1-1.0 Serum or plasma alkaline phosphatase measurement (enzymatic activity/volume) 43 U/L 40-136 Serum or plasma aspartate aminotransferase measurement (enzymatic activity/ volume) 22 U/L 5-34 Serum or plasma alanine aminotransferase measurement (enzymatic activity/volume ) 11 U/L 0-55 Serum or plasma protein measurement (mass/volume) 7.3 g/dL 6.4-8.2 Serum or plasma albumin measurement (mass/volume) 4.2 g/dL 3.2-4.5 Serum or plasma troponin i.cardiac measurement (mass/volume) - 02/16/18 11:20 Serum or plasma troponin i.cardiac measurement (mass/volume) < ng/ mL <0.30 Complete blood count (CBC) with automated white blood cell (WBC) differential - 07/29/18 08:25 Blood leukocytes automated count (number/volume) 5.4 10*3/uL 4.3-11.0 Blood erythrocytes automated count (number/volume) 3.80 10*6/uL 4.35-5.85 Venous blood hemoglobin measurement (mass/volume) 10.6 g/dL 11.5-16.0 Blood hematocrit (volume fraction) 32 % 35-52 Automated erythrocyte mean corpuscular volume 85 [foz_us] 80-99 Automated erythrocyte mean corpuscular hemoglobin (mass per erythrocyte) 28 pg 25-34 Automated erythrocyte mean corpuscular hemoglobin concentration measurement ( mass/volume) 33 g/dL 32-36 Automated erythrocyte distribution width ratio 14.8 % 10.0-14.5 Automated blood platelet count (count/volume) 308 10*3/uL 130-400 Automated blood platelet mean volume measurement 10.1 [foz_us] 7.4-10.4 Automated blood neutrophils/100 leukocytes 71 % 42-75 Automated blood lymphocytes/100 leukocytes 18 % 12-44 Blood monocytes/100 leukocytes 11 % 0-12 Automated blood eosinophils/100 leukocytes 1 % 0-10 Automated blood basophils/100 leukocytes 1 % 0-10 Blood neutrophils automated count (number/volume) 3.8 10*3 1.8-7.8 Blood lymphocytes automated count (number/volume) 1.0 10*3 1.0-4.0 Blood monocytes automated count (number/volume) 0.6 10*3 0.0-1.0 Automated eosinophil count 0.0 10*3/uL 0.0-0.3 Automated blood basophil count (count/volume) 0.0 10*3/uL 0.0-0.1 Comprehensive metabolic panel - 07/29/18 08:25 Serum or plasma sodium measurement (moles/volume) 133 mmol/L 135-145 Serum or plasma potassium measurement (moles/volume) 4.2 mmol/L 3.6-5.0 Serum or plasma chloride measurement (moles/volume) 101 mmol/L 98-107 Carbon dioxide 22 mmol/L 21-32 Serum or plasma anion gap determination (moles/volume) 10 mmol/L 5-14 Serum or plasma urea nitrogen measurement (mass/volume) 17 mg/dL 7-18 Serum or plasma creatinine measurement (mass/volume) 0.80 mg/dL 0.60-1.30 Serum or plasma urea nitrogen/creatinine mass ratio 21 NRG Serum or plasma creatinine measurement with calculation of estimated glomerular filtration rate > NRG Serum or plasma glucose measurement (mass/volume) 127 mg/dL 70-105 Serum or plasma calcium measurement (mass/volume) 9.6 mg/dL 8.5-10.1 Serum or plasma total bilirubin measurement (mass/volume) 0.5 mg/dL 0.1-1.0 Serum or plasma alkaline phosphatase measurement (enzymatic activity/volume) 32 U/L 40-136 Serum or plasma aspartate aminotransferase measurement (enzymatic activity/ volume) 22 U/L 5-34 Serum or plasma alanine aminotransferase measurement (enzymatic activity/volume ) 12 U/L 0-55 Serum or plasma protein measurement (mass/volume) 7.2 g/dL 6.4-8.2 Serum or plasma albumin measurement (mass/volume) 4.0 g/dL 3.2-4.5 CALCIUM CORRECTED 9.6 mg/dL 8.5-10.1 Serum or plasma C reactive protein measurement (mass/volume) - 07/29/18 08:25 Serum or plasma C reactive protein measurement (mass/volume) 1.13 mg /dL 0.00-0.50 Complete urinalysis with reflex to culture - 07/29/18 10:35 Urine color determination YELLOW NRG Urine clarity determination CLEAR NRG Urine pH measurement by test strip 7 5-9 Specific gravity of urine by test strip 1.005 1.016- 1.022 Urine protein assay by test strip, semi-quantitative NEGATIVE NEGATIVE Urine glucose detection by automated test strip NEGATIVE NEGATIVE Erythrocytes detection in urine sediment by light microscopy NEGATIVE NEGATIVE Urine ketones detection by automated test strip NEGATIVE NEGATIVE Urine nitrite detection by test strip NEGATIVE NEGATIVE Urine total bilirubin detection by test strip NEGATIVE NEGATIVE Urine urobilinogen measurement by automated test strip (mass/volume) NORMAL NORMAL Urine leukocyte esterase detection by dipstick NEGATIVE NEGATIVE Automated urine sediment erythrocyte count by microscopy (number/high power field) NONE NRG Automated urine sediment leukocyte count by microscopy (number/high power field ) [HPF] NRG Bacteria detection in urine sediment by light microscopy NEGATIVE NRG Squamous epithelial cells detection in urine sediment by light microscopy 2-5 NRG Crystals detection in urine sediment by light microscopy NONE NRG Casts detection in urine sediment by light microscopy NONE NRG Mucus detection in urine sediment by light microscopy NEGATIVE NRG Complete urinalysis with reflex to culture NO NRG Encounters ACCT No. Visit Date/Time Discharge Status Pt. 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 [employer] [address]MS [facility] ER FALL/R HAND INJ [id number] 07/24/2016 13:29:00 07/24/2016 15:10:00 DIS Emergency CHANELL HORN [facility] ER L HAND RING FINGER INJ [id number] 01/25/2016 08:40:00 01/26/2016 09:50:00 DIS Outpatient ADI CERDA MD [facility] CATH CARLOS,CAD,HLP,HTN [id number] 10/02/2015 12:28:00 10/03/2015 14:32:00 DIS Inpatient DEB ROBERTO, DOMINICK Guerra [facility] 4TH R MAXILLARY SINUSITIS BRONCHITIS W/ HYPOXIA [id number] 06/20/2015 12:39:00 06/20/2015 23:59:59 CLS Outpatient SHEKHAR UMANA [facility] CARD AF,CAD [id number] 05/05/2015 10:48:00 05/05/2015 23:59:59 CLS Outpatient DOMINICK BOYD MD [facility] RAD SCREENING [id number] 12/05/2014 15:26:00 12/05/2014 20:52:00 DIS Emergency ROMAINE YAO DO [facility] ER COUGH,VOMITING,CHILLS [id number] 02/12/2014 12:10:00 02/12/2014 23:59:59 CLS Outpatient DOMINICK BOYD MD [facility] RAD CONFUSION [id number] 07/16/2013 09:39:00 07/16/2013 23:59:59 CLS Outpatient DOMINICK BOYD MD [facility] RAD SCREENING [id number] 03/12/2013 13:36:00 03/13/2013 12:30:00 DIS Inpatient ADI CERDA MD [facility] CSD CHEST PAIN [id number] 03/02/2013 07:49:00 03/02/2013 23:59:59 CLS Outpatient ADI CERDA MD [facility] RAD CAD,PPM,HTN [id number] 02/23/2013 08:31:00 02/23/2013 23:59:59 CLS Outpatient ADI CERDA MD [facility] CARD CAD,PPM,HTN [id number] 07/29/2018 12:49:00 ACT Inpatient NORRIS MOORE MD [facility] 4TH COLITIS [id number] 01/21/2015 09:35:00 Document Registration [id number] 12/13/2014 19:30:00 Document Registration [id number] 07/14/2012 14:34:00 Document Registration [id number] 07/10/2012 10:45:00 Document Registration [id number] 07/05/2011 11:17:00 Document Registration [id number] 04/04/2011 09:44:00 Document Registration [id number] 07/03/2010 10:12:00 Document Registration [id number] 02/15/2010 16:41:00 Document Registration [id number] 02/15/2010 13:49:00 Document Registration [id number] 02/07/2010 11:19:00 Document Registration [id number] 02/06/2010 07:50:00 Document Registration [id number] 12/01/2009 12:15:00 Document Registration [id number] 11/30/2009 16:27:00 Document Registration [id number] 06/28/2009 09:37:00 Document Registration [id number] 06/20/2015 23:07:06 ACT Document Registration
[2018-07-29 13:00] VITALS: BP 171/81
[2018-07-29] MEDS ORDERED: MILK OF MAGNESIA 400 MG/5 ML 30 ML UDC PO PRN (14:00)
[2018-07-29] MEDS ORDERED: MELATONIN 3 MG TABLET PO PRN (14:00)
[2018-07-29] MEDS ORDERED: ANTACID SUSP 30 ML UDC (MYLANTA) PO PRN (14:00)
[2018-07-29] MEDS ORDERED: BENZONATATE 100 MG (TESSALON) CAPSULE PO PRN (14:00)
[2018-07-29] MEDS ORDERED: ACETAMINOPHEN 325 MG TABLET PO PRN (14:00)
[2018-07-29] MEDS ORDERED: ONDANSETRON 4 MG/2 ML (SDV) Z0FRAN IV PRN (14:00)
--- NOTE | 2018-07-29 14:38 | History & Physical-Hospitalist ---
History of Present Illness HPI/Chief Complaint Pt is an 88yoCF with a PMH of atrial fibrillation s/p pacemaker, Crohn's disease , NIDDMII, dementia, HTN who presented to the ER with CC of constipation. She gives a varying history and cannot give finite details but believe she has not had a bowel movement in weeks. She says instead of stool when she strains she just has some bright red blood in her toilet. She believes that has been going on for 3 weeks but is unsure. She denies any abdominal pain, nausea, or vomiting. She thinks she may be bloated but is not sure. She has tried to take Miralax 1 cap for once but it did not help. Source: patient Date Seen 07/29/18 Time Seen by a Provider: 13:45 Attending Physician Norris Mitchell MD PCP Alexis Serna MD Referring Physician Date of Admission Jul 29, 2018 at 12:49 pm Home Medications & Allergies Home Medications Reviewed patient Home Medication Reconciliation performed by pharmacy medication reconciliations financial services technician and/or nursing. Patients Allergies have been reviewed. Allergies Allergies Coded Allergies Sulfa (Sulfonamide Antibiotics) (Verified Allergy, Unknown, 07/22/06) Past Zkrpqvr-Dnhefo-Qvjqdk Hx Past Med/Social Hx: Reviewed Nursing Past Med/Soc Hx Patient Social History Marrital Status: Alcohol Use: Occasionally Uses Number of Drinks Today: DD Alcohol Beverage of Choice: Beer, Wine Recreational Drug Use: No Smoking Status: Never a Smoker Recent Foreign Travel: No Contact w/other who traveled: No Recent Hopitalizations: No Recent Infectious Disease Expo: No Immunizations Up To Date Tetanus Booster (TDap): More than 5yrs Pediatric: No Date of Pneumonia Vaccine: Jan 24, 2013 Date of Influenza Vaccine: Aug 03, 2016 Seasonal Allergies Seasonal Allergies: No Past Medical History Surgeries: Adenoidectomy, Appendectomy, Cardiac, CABG, Hysterectomy, Orthopedic , Pacemaker, Tonsillectomy Currently Using CPAP: No Currently Using BIPAP: No Cardiac: Atrial Fibrillation, Coronary Artery Disease, Hypertension Neurological: Parkinson's Disease Reproductive: No Sexually Transmitted Disease: No HIV/AIDS: No Female 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: Denies Hysterectomy Gastrointestinal: Colitis Musculoskeletal: Arthritis Endocrine: Diabetes, Non-Insulin dep HEENT: Cataract Loss of Vision: Denies Hearing Impairment: Hard of Hearing Cancer: Skin Psychosocial: Anxiety, Depression History of Blood Disorders: No Family History Reviewed Nursing Family Hx Cardiovascular disease 19 FATHER, , Age:90, Onset:Unknown 19 MOTHER, , Age:86, Onset:Unknown Completed stroke 19 FATHER, , Age:90, Onset:Unknown 19 MOTHER, , Age:86, Onset:Unknown No Family History of: AIDS Abdominal aortic aneurysm [place]'s disease Alcoholism Alzheimer's disease Aphasia Arthritis Asthma Cancer of mouth Cataracts Colon cancer Congenital disease Congenital heart disease Coronary thrombosis Cystic fibrosis Deafness or hearing loss Dementia Diabetes mellitus Drug abuse Dysphasia Fibrocystic disease of breast Gastroenteritis Glaucoma Headache disorder Hypercholesterolemia Hypertension Infertility Kidney disease Myocardial infarction Neoplasm Not obtainable due to adoption Osteoporosis Parkinson's disease Prostate cancer Psychosocial problem Respiratory disorder Seizure disorder Severe allergy Thyroid disease Tuberculosis Visual disorder Heart Disease, Hypertension, Stroke Review of Systems Constitutional: no symptoms reported EENTM: no symptoms reported Respiratory: no symptoms reported Cardiovascular: no symptoms reported Gastrointestinal: see HPI; No abdominal pain; constipation; No diarrhea, No loss of appetite, No nausea, No vomiting Genitourinary: no symptoms reported Musculoskeletal: no symptoms reported Skin: no symptoms reported Psychiatric/Neurological: No Symptoms Reported Physical Exam Physical Exam Vital Signs Vital Signs - First Documented 07/29/18 06:58 Temp 97.3 Pulse 70 Resp 18 B/P (MAP) 152/79 (103) Pulse Ox 98 O2 Delivery Room Air Capillary Refill : Less Than 3 Seconds Height, Weight, BMI Height: 5'4.00" Weight: 180lbs. 0.0oz. [id number]; 30.9 BMI Method:Stated General Appearance: No Apparent Distress, WD/WN HEENT: PERRL/EOMI, Moist Mucous Membranes Neck: Non Tender, Supple Respiratory: Lungs Clear, No Respiratory Distress Cardiovascular: Regular Rate, Rhythm, No Murmur Gastrointestinal: Normal Bowel Sounds, Non Tender, Soft; No Guarding; Tenderness (mild, diffuse) Extremity: Normal Capillary Refill, No Calf Tenderness Neurologic/Psychiatric: Alert, Oriented x3, Normal Mood/Affect Skin: Normal Color, Warm/Dry Results Results/Procedures Labs Laboratory Tests 07/29/18 08:25 Patient resulted labs reviewed. Imaging: Reviewed Imaging Report Assessment/Plan Admission Diagnosis Colitis Admission Status: Inpatient Order (span 2 midnights) Reason for Inpatient Admission: needs surgical evaluation, may need endoscopy Diagnosis/Problems Diagnosis/Problems (1) Colitis Status: Acute Assessment & Plan: Surgery consulted appreciate recs CLD for now (2) Rectal bleeding Status: Acute Assessment & Plan: Per rectal exam from ER physician- hemorrhoids noted (3) Constipation Status: Acute Assessment & Plan: Will start aggressive bowel regimen once Surgery has seen Qualifiers: Constipation type: unspecified constipation type Qualified Codes: K59.00 - Constipation, unspecified (4) Atrial fibrillation Assessment & Plan: Continue home meds Rate was regular on my exam Continue Eliquis Qualifiers: Atrial fibrillation type: paroxysmal Qualified Codes: I48.0 - Paroxysmal atrial fibrillation (5) CAD (coronary artery disease) Assessment & Plan: Reports history of 4 vessel CABG On eliquis Qualifiers: Coronary Disease-Associated Artery/Lesion type: bypass graft [place] vs. transplanted heart: [place] heart Associated angina: without angina Qualified Codes: I25.810 - Atherosclerosis of coronary artery bypass graft(s) without angina pectoris NORRIS MITCHELL MD Jul 29, 2018 2:38 pm
[2018-07-29] MEDS ORDERED: PRAM1.5T5 PO (15:04)
[2018-07-29] MEDS ORDERED: DIGO125T PO (15:04)
[2018-07-29] MEDS ORDERED: BALS750C PO (15:04)
[2018-07-29] MEDS ORDERED: DONE10TA41 PO (15:04)
[2018-07-29] MEDS ORDERED: FENO135C4 PO (15:04)
[2018-07-29] MEDS ORDERED: METF-399 PO (15:04)
[2018-07-29] MEDS ORDERED: LUBI8CAP PO (15:04)
[2018-07-29] MEDS ORDERED: GLYC2TAB3 PO (15:04)
[2018-07-29] MEDS ORDERED: PANT40TA3 PO (15:04)
[2018-07-29] MEDS ORDERED: SIMV40TA4 PO (15:04)
[2018-07-29] MEDS ORDERED: MULT1TAB69 PO (15:06)
[2018-07-29] MEDS ORDERED: CALC-6 PO (15:06)
[2018-07-29] MEDS ORDERED: ACET-168 PO (15:06)
[2018-07-29] MEDS ORDERED: LOSA1TAB23 PO (15:08)
[2018-07-29] MEDS ORDERED: ASPI-983 PO (15:08)
--- NOTE | 2018-07-29 15:31 | Consultation ---
History of Present Illness History of Present Illness Patient Consulted On(zita/time) 07/29/18 15:26 Date Seen by Provider: Jul 29, 2018 Time Seen by Provider: 15:02 History of Present Illness consult requested by Dr. Mitchell for rectal bleeding. Pt states she has been constipated for at least the last month and has had red "slimy" stools every time she has tried to have a BM over the last month as well. No pain with bowel movements. Constipation issues on regular basis. Pt States she tried "some" mirilax which did not help. Pt also c/o some abdominal bloating. Has had previous colonoscopy but so long ago she doesn't know when. Pt denies N/V, CP, SOB, fever, chills. Ct scan reviewed shows some thickening of sigmoid colon such as colitis, fecal material consistent with constipation. Allergies and Home Medications Allergies Coded Allergies: Sulfa (Sulfonamide Antibiotics) (Verified Allergy, Unknown, 07/29/18) Home Medications Acetaminophen 500 Mg Tablet, 1,000 MG PO Q4H PRN for PAIN-MILD, (Reported) Apixaban 5 Mg Tablet, 5 MG PO BID, (Reported) Aspirin 81 Mg Tablet.dr, 162 MG PO DAILY, (Reported) TAKES 2 (81MG) TABLETS Balsalazide Disodium 750 Mg Capsule, 2,250 MG PO TID, (Reported) TAKES 3 (750MG) CAPSULES Calcium Carbonate/Vitamin D3 1 Each Tablet, 2 TAB PO HS, (Reported) Cetirizine HCl 10 Mg Tablet, 10 MG PO DAILY PRN for ALLERGIES, (Reported) Citalopram Hydrobromide 10 Mg Tablet, 10 MG PO HS, (Reported) LAST FILLED #90 04-10-18 Digoxin 125 Mcg Tablet, 125 MCG PO DAILY, (Reported) Donepezil HCl 10 Mg Tablet, 10 MG PO DAILY, (Reported) Fenofibric Acid (Choline) 135 Mg Capsule.dr, 135 MG PO DAILY, (Reported) Glycopyrrolate 2 Mg Tablet, 2 MG PO BID, (Reported) Losartan/Hydrochlorothiazide 1 Each Tablet, 1 TAB PO DAILY, (Reported) LAST FILLED #90 04-10-18 Lubiprostone 8 Mcg Capsule, 8 MCG PO BID, (Reported) Metformin HCl 1,000 Mg Tablet, 1,000 MG PO BID, (Reported) Metoprolol Succinate 50 Mg Tab.sr.24h, 50 MG PO HS, (Reported) Multivitamin 1 Each Tablet, 1 TAB PO DAILY, (Reported) Pantoprazole Sodium 40 Mg Tablet.dr, 40 MG PO DAILY, (Reported) Pramipexole Di-HCl 1.5 Mg Tablet, 1.5 MG PO TID, (Reported) Simvastatin 40 Mg Tablet, 40 MG PO HS, (Reported) Patient Home Medication List Home Medication List Reviewed: Yes Past Utnbywg-Stkdky-Gylydy Hx Patient Social History Alcohol Use: Occasionally Uses Number of Drinks Today: AA Recreational Drug Use: No Smoking Status: Never a Smoker Recent Foreign Travel: No Contact w/Someone Who Travel: No Recent Infectious Disease Expo: No Recent Hopitalizations: No Physical Abuse Screen: No Sexual Abuse: No Immunizations Up To Date Tetanus Booster (TDap): More than 5yrs PED Vaccines UTD: No Date of Pneumonia Vaccine: Jan 24, 2013 Date of Influenza Vaccine: Jun 25, 2018 Seasonal Allergies Seasonal Allergies: No Surgeries History of Surgeries: Yes (pacemaker) Surgeries: Adenoidectomy, Appendectomy, Cardiac, CABG, Hysterectomy, Orthopedic , Pacemaker, Tonsillectomy Respiratory History of Respiratory Disorde: No Respiratory Disorders: Asthma Cardiovascular History of Cardiac Disorders: Yes Cardiac Disorders: Atrial Fibrillation, Coronary Artery Disease, Hypertension Neurological History of Neurological Disord: Yes Neurological Disorders: Parkinson's Disease Reproductive System Hx 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: No Sexually Transmitted Disease: No HIV/AIDS: No Female 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: Denies [employer] History: Hysterectomy Genitourinary History of Genitourinary Disor: No Gastrointestinal History of Gastrointestinal Di: Yes Gastrointestinal Disorders: Colitis Musculoskeletal History of Musculoskeletal Dis: Yes Musculoskeletal Disorders: Arthritis Endocrine History of Endocrine Disorders: Yes Endocrine Disorders: Diabetes, Non-Insulin dep HEENT HEENT Disorders: Cataract Loss of Vision: Denies Hearing Impairment: Hard of Hearing Cancer History of Cancer: No Cancer: Skin Psychosocial History of Psychiatric Problem: No Behavioral Health Disorders: Anxiety, Depression Integumentary History of Skin or Integumenta: No Blood Transfusions History of Blood Disorders: No Family Medical History Significant Family History: Heart Disease, Hypertension, Stroke Family Medial History: Cardiovascular disease 19 FATHER, , Age:90, Onset:Unknown 19 MOTHER, , Age:86, Onset:Unknown Completed stroke 19 FATHER, , Age:90, Onset:Unknown 19 MOTHER, , Age:86, Onset:Unknown No Family History of: AIDS Abdominal aortic aneurysm [place]'s disease Alcoholism Alzheimer's disease Aphasia Arthritis Asthma Cancer of mouth Cataracts Colon cancer Congenital disease Congenital heart disease Coronary thrombosis Cystic fibrosis Deafness or hearing loss Dementia Diabetes mellitus Drug abuse Dysphasia Fibrocystic disease of breast Gastroenteritis Glaucoma Headache disorder Hypercholesterolemia Hypertension Infertility Kidney disease Myocardial infarction Neoplasm Not obtainable due to adoption Osteoporosis Parkinson's disease Prostate cancer Psychosocial problem Respiratory disorder Seizure disorder Severe allergy Thyroid disease Tuberculosis Visual disorder Review of Systems-General Constitutional: no symptoms reported; No fever EENTM: no symptoms reported Respiratory: no symptoms reported; No short of breath Cardiovascular: no symptoms reported; No chest pain Gastrointestinal: see HPI Genitourinary: see HPI Musculoskeletal: no symptoms reported Skin: no symptoms reported Psychiatric/Neurological: No Symptoms Reported Physical Exam-General Problems Physical Exam Vital Signs Vital Signs - First Documented 07/29/18 06:58 Temp 97.3 Pulse 70 Resp 18 B/P (MAP) 152/79 (103) Pulse Ox 98 O2 Delivery Room Air Capillary Refill : Less Than 3 Seconds General Appearance: no apparent distress Eyes: Bilateral Eye EOMI HEENT: PERRL/EOMI Neck: full range of motion, supple, normal inspection Respiratory: no respiratory distress Cardiovascular: regular rate, rhythm, no edema Gastrointestinal: soft, tenderness (mild, diffuse) Rectal: hemorrhoids Back: normal inspection Extremities: normal range of motion Neurologic/Psychiatric: no motor/sensory deficits, alert, normal mood/affect, oriented x 3 Skin: normal color, warm/dry Lymphatic: no adenopathy Data Review Labs Laboratory Tests 07/29/18 08:25: White Blood Count 5.4, Red Blood Count 3.80L, Hemoglobin 10.6L, Hematocrit 32L, Mean Corpuscular Volume 85, Mean Corpuscular Hemoglobin 28, Mean Corpuscular Hemoglobin Concent 33, Red Cell Distribution Width 14.8H, Platelet Count 308, Mean Platelet Volume 10.1, Neutrophils (%) (Auto) 71, Lymphocytes (%) (Auto) 18 , Monocytes (%) (Auto) 11, Eosinophils (%) (Auto) 1, Basophils (%) (Auto) 1, Neutrophils # (Auto) 3.8, Lymphocytes # (Auto) 1.0, Monocytes # (Auto) 0.6, Eosinophils # (Auto) 0.0, Basophils # (Auto) 0.0, Sodium Level 133L, Potassium Level 4.2, Chloride Level 101, Carbon Dioxide Level 22, Anion Gap 10, Blood Urea Nitrogen 17, Creatinine 0.80, Estimat Glomerular Filtration Rate > 60, BUN/ Creatinine Ratio 21, Glucose Level 127H, Calcium Level 9.6, Corrected Calcium 9.6, Total Bilirubin 0.5, Aspartate Amino Transf (AST/SGOT) 22, Alanine Aminotransferase (ALT/SGPT) 12, Alkaline Phosphatase 32L, C-Reactive Protein High Sensitivity 1.13H, Total Protein 7.2, Albumin 4.0 07/29/18 10:35: Urine Color YELLOW, Urine Clarity CLEAR, Urine pH 7, Urine Specific [place] 1.005L, Urine Protein NEGATIVE, Urine Glucose (UA) NEGATIVE, Urine Ketones NEGATIVE, Urine Nitrite NEGATIVE, Urine Bilirubin NEGATIVE, Urine Urobilinogen NORMAL, Urine Leukocyte Esterase NEGATIVE, Urine RBC (Auto) NEGATIVE, Urine RBC NONE, Urine WBC 0-2, Urine Squamous Epithelial Cells 2-5, Urine Crystals NONE, Urine Bacteria NEGATIVE, Urine Casts NONE, Urine Mucus NEGATIVE, Urine Culture Indicated NO Radiology IMPRESSION: Moderate amount of retained fecal material likely reflecting some degree of constipation. Additionally, there is some mucosal thickening of the sigmoid colon and rectum possibly reflecting colitis. Recommend clinical correlation Assessment/Plan Assessment/Plan Assessment/Plan Rectal bleeding colitis constipation Will try conservative measures such as laxative. Will schedule outpt followup for colonoscopy, if bleeding continues or worsens can do inpt colonoscopy. Patient is on anticoagulation, would like that to be off before proceeding with endoscopy. Physician Assessment Physician Assessment Scribed by Kiran Mesa MSIII Clinical Quality Measures DVT/VTE Risk/Contraindication: Risk Factor Score Per Nursin RFS Level Per Nursing on Admit: 2=Moderate JOSEPH MESA MEDICAL STUDENT Jul 29, 2018 15:31 RAJ ROLAND DO Jul 29, 2018 16:30
[2018-07-29] MEDS ORDERED: METO-352 PO (16:26)
[2018-07-29 16:30] VITALS: BP 171/74
[2018-07-29 19:50] VITALS: BP 139/63
[2018-07-29] MEDS: POLYETHYLENE GLYCOL 17 GM (MIRALAX) PACK PO SCH (20:56)
[2018-07-29] MEDS: LACTULOSE SYRUP 10GM/15ML (ENULOSE) 30ML UDC PO SCH (20:56)
[2018-07-30] VITALS: BP 136/74
[2018-07-30] MEDS: POLYETHYLENE GLYCOL 17 GM (MIRALAX) PACK PO SCH ×4 (00:11→12:17)
[2018-07-30 04:00] VITALS: BP 132/64
[2018-07-30 05:58] LABS: BASOPHILS % (AUTO) 1 % (0-10); EOSINOPHILS % (AUTO) 0 % (0-10); HEMATOCRIT 32 % (35-52); HEMOGLOBIN 10.8 G/DL (11.5-16.0); LYMPHOCYTES # (AUTO) 0.9 X 10^3 (1.0-4.0); LYMPHOCYTES % (AUTO) 15 % (12-44); MEAN CORPUSCULAR HEMOGLOBIN 29 PG (25-34); MEAN CORPUSCULAR HGB CONC 34 G/DL (32-36); MEAN CORPUSCULAR VOLUME 85 FL (80-99); MEAN PLATELET VOLUME 10.3 FL (7.4-10.4); MONOCYTES # (AUTO) 0.6 X 10^3 (0.0-1.0); MONOCYTES % (AUTO) 10 % (0-12); NEUTROPHILS # (AUTO) 4.3 X 10^3 (1.8-7.8); NEUTROPHILS % (AUTO) 74 % (42-75); PLATELET COUNT 290 10^3/uL (130-400); RED BLOOD COUNT 3.72 10^6/uL (4.35-5.85); RED CELL DISTRIBUTION WIDTH 14.5 % (10.0-14.5); WHITE BLOOD COUNT 5.9 10^3/uL (4.3-11.0)
[2018-07-30 06:23] LABS: BUN/CREATININE RATIO 17; CALCIUM 9.5 MG/DL (8.5-10.1); CARBON DIOXIDE 23 MMOL/L (21-32); CHLORIDE 100 MMOL/L (98-107); CREATININE SERUM 0.76 MG/DL (0.60-1.30); GFR ESTIMATED > 60; GLUCOSE 138 MG/DL (70-105); POTASSIUM 4.3 MMOL/L (3.6-5.0); SODIUM 133 MMOL/L (135-145)
[2018-07-30] MEDS: LACTULOSE SYRUP 10GM/15ML (ENULOSE) 30ML UDC PO SCH ×2 (08:11→12:17)
[2018-07-30 08:44] VITALS: BP 119/56
--- NOTE | 2018-07-30 09:33 | Discharge Summary-Hospitalist ---
Diagnosis/Chief Complaint Date of Admission Jul 29, 2018 at 12:49 pm Date of Discharge Admission Diagnosis Colitis Discharge Diagnosis (1) Constipation Status: Acute Assessment & Plan: Resolved with bowel regimen (2) Colitis Status: Resolved Assessment & Plan: Surgery consulted appreciate recs (3) Rectal bleeding Status: Acute Assessment & Plan: Per rectal exam from ER physician- hemorrhoids noted (4) Atrial fibrillation Assessment & Plan: Continue home meds Rate was regular on my exam Continue Eliquis (5) CAD (coronary artery disease) Assessment & Plan: Reports history of 4 vessel CABG On eliquis Discharge Summary Procedures/Consulations Dr Ford Surgery Discharge Physical Exam Allergies: Coded Allergies: Sulfa (Sulfonamide Antibiotics) (Verified Allergy, Unknown, 07/29/18) Vitals & I&Os Vital Signs Date Time Temp Pulse Resp B/P (MAP) Pulse Ox O2 Delivery O2 Flow Rate FiO2 07/30/18 13:05 07/30/18 12:00 98.5 82 20 98 Room Air General Appearance: No Apparent Distress, WD/WN Cardiovascular: Regular Rate, Rhythm, No Murmur Gastrointestinal: Normal Bowel Sounds, Non Tender, Soft Hospital Course Pt was admitted for abd pain with concerns for colitis. She also had significant constipation on CT. She was treated with a bowel regimen and had multiple bowel movements resolving her symptoms. She was requesting discharge on day of discharge. She was discharged to home in stable and improved condition. Labs (last 24 hrs) Laboratory Tests 07/30/18 05:40: White Blood Count 5.9, Red Blood Count 3.72L, Hemoglobin 10.8L, Hematocrit 32L, Mean Corpuscular Volume 85, Mean Corpuscular Hemoglobin 29, Mean Corpuscular Hemoglobin Concent 34, Red Cell Distribution Width 14.5, Platelet Count 290, Mean Platelet Volume 10.3, Neutrophils (%) (Auto) 74, Lymphocytes (%) (Auto) 15 , Monocytes (%) (Auto) 10, Eosinophils (%) (Auto) 0, Basophils (%) (Auto) 1, Neutrophils # (Auto) 4.3, Lymphocytes # (Auto) 0.9L, Monocytes # (Auto) 0.6, Eosinophils # (Auto) 0.0, Basophils # (Auto) 0.0, Sodium Level 133L, Potassium Level 4.3, Chloride Level 100, Carbon Dioxide Level 23, Anion Gap 10, Blood Urea Nitrogen 13, Creatinine 0.76, Estimat Glomerular Filtration Rate > 60, BUN/ Creatinine Ratio 17, Glucose Level 138H, Calcium Level 9.5 Patient resulted labs reviewed. Pending Labs Imaging: Reviewed Imaging Report Discussion & Recommendations Discharge Planning: >30 minutes discharge planning Discharge Home Medications: Active Scripts Active Reported Toprol Xl (Metoprolol Succinate) 50 Mg Tab.er.24h 50 Mg PO HS LAST FILLED #90 02-14-18 Losartan-Hctz 100-25 mg Tab (Losartan/Hydrochlorothiazide) 1 Each Tablet 1 Tab PO DAILY LAST FILLED #90 04-10-18 Acetaminophen Extra Strength (Acetaminophen) 500 Mg Tablet 1,000 Mg PO Q4H PRN Fenofibric Acid (Fenofibric Acid (Choline)) 135 Mg Capsule.dr 135 Mg PO HS Simvastatin 40 Mg Tablet 40 Mg PO HS Digoxin 125 Mcg Tablet 125 Mcg PO DAILY Amitiza (Lubiprostone) 8 Mcg Capsule 8 Mcg PO BID Metformin HCl 1,000 Mg Tablet 1,000 Mg PO BID Pantoprazole Sodium 40 Mg Tablet.dr 40 Mg PO HS Glycopyrrolate 2 Mg Tablet 2 Mg PO BID Pramipexole Dihydrochloride (Pramipexole Di-HCl) 1.5 Mg Tablet 1.5 Mg PO TID Balsalazide Disodium 750 Mg Capsule 2,250 Mg PO TID TAKES 3 (750MG) CAPSULES Citalopram HBr (Citalopram Hydrobromide) 10 Mg Tablet 10 Mg PO HS LAST FILLED #90 04-10-18 Eliquis (Apixaban) 5 Mg Tablet 5 Mg PO BID Instructions to patient/family Please see electronic discharge instructions given to patient. Clinical Quality Measures DVT/VTE Risk/Contraindication: Risk Factor Score Per Nursin RFS Level Per Nursing on Admit: 2=Moderate Problem Qualifiers (1) Constipation: Constipation type: unspecified constipation type Qualified Codes: K59.00 - Constipation, unspecified (2) Atrial fibrillation: Atrial fibrillation type: paroxysmal Qualified Codes: I48.0 - Paroxysmal atrial fibrillation (3) CAD (coronary artery disease): Coronary Disease-Associated Artery/Lesion type: bypass graft [place] vs. transplanted heart: [place] heart Associated angina: without angina Qualified Codes: I25.810 - Atherosclerosis of coronary artery bypass graft(s) without angina pectoris NORRIS MOORE MD Jul 30, 2018 9:33 am
--- NOTE | 2018-07-30 09:43 | Discharge Inst-Simple/Standard ---
Discharge Inst-Standard Discharge Medications New, Converted or Re-Newed RX: Transmitted to Pharmacy Patient Instructions/Follow Up Plan of Care/Instructions/FU: Please continue to take your medications as written. If you continue to have constipation please take Miralax to help. You can take this 4 time per day and decrease as needed. Please follow up with your doctors scheduled. Activity as Tolerated: Yes Discharge Diet: No Restrictions NORRIS MOORE MD Jul 30, 2018 9:43 am
--- NOTE | 2018-07-30 11:18 | Progress Note ---
Subjective Date Seen by a Provider: Jul 30, 2018 Time Seen by a Provider: 08:45 Subjective/Events-last exam Pt states she is feeling much better from yesterday. Pt denies any abd pain, denies any blood in her stools now. Had large bowel movement since yesterday. Hgb stable. Pt wanting to go home. Denies any new issues, denies n/v fever sweats chills shortness of breath or chest pain. Objective Exam Vital Signs Date Time Temp Pulse Resp B/P (MAP) Pulse Ox O2 Delivery O2 Flow Rate FiO2 07/30/18 08:44 97.8 83 20 119/56 (77) 100 Room Air 07/30/18 04:00 98.9 83 20 132/64 (86) 100 Room Air 07/30/18 00:00 99.3 95 20 136/74 (94) 97 Room Air 07/29/18 19:50 98.0 67 16 139/63 (88) 99 Room Air 07/29/18 16:30 97.7 62 18 171/74 (106) 99 Room Air 07/29/18 13:20 Room Air 07/29/18 13:14 64 18 159/78 (105) 100 Room Air 07/29/18 13:00 97.8 64 18 171/81 (111) 99 Room Air I & O 07/30/18 07:00 Intake Total 1172 ml Output Total 950 ml Balance 222 ml Capillary Refill : Less Than 3 Seconds General Appearance: No Apparent Distress, WD/WN HEENT: PERRL/EOMI, Moist Mucous Membranes Neck: Non Tender, Supple Respiratory: Lungs Clear, No Respiratory Distress Cardiovascular: Regular Rate, Rhythm, No Murmur Gastrointestinal: soft; No tenderness Extremity: Normal Capillary Refill, No Calf Tenderness Neurologic/Psychiatric: Alert, Oriented x3, Normal Mood/Affect Skin: Normal Color, Warm/Dry Results Lab Laboratory Tests 07/30/18 05:40: White Blood Count 5.9, Red Blood Count 3.72L, Hemoglobin 10.8L, Hematocrit 32L, Mean Corpuscular Volume 85, Mean Corpuscular Hemoglobin 29, Mean Corpuscular Hemoglobin Concent 34, Red Cell Distribution Width 14.5, Platelet Count 290, Mean Platelet Volume 10.3, Neutrophils (%) (Auto) 74, Lymphocytes (%) (Auto) 15 , Monocytes (%) (Auto) 10, Eosinophils (%) (Auto) 0, Basophils (%) (Auto) 1, Neutrophils # (Auto) 4.3, Lymphocytes # (Auto) 0.9L, Monocytes # (Auto) 0.6, Eosinophils # (Auto) 0.0, Basophils # (Auto) 0.0, Sodium Level 133L, Potassium Level 4.3, Chloride Level 100, Carbon Dioxide Level 23, Anion Gap 10, Blood Urea Nitrogen 13, Creatinine 0.76, Estimat Glomerular Filtration Rate > 60, BUN/ Creatinine Ratio 17, Glucose Level 138H, Calcium Level 9.5 Assessment/Plan Assessment/Plan Assessment/Plan Rectal bleeding colitis constipation Patient with no further bleeding. Would plan on outpatient colonoscopy in about 6 weeks. Okay to dc home. Will have her see me in 3 weeks. Any issues before then be seen at that time. Clinical Quality Measures DVT/VTE Risk/Contraindication: Risk Factor Score Per Nursin RFS Level Per Nursing on Admit: 2=Moderate Physician Assessment Physician Assessment Scribed by Kiran Mesa MS3 for JOSEPH Soto MEDICAL STUDENT Jul 30, 2018 11:17 RAJ ROLAND DO Jul 30, 2018 12:04
[2018-07-30 12:00] VITALS: BP 148/72
== END 2018-07-30 13:05 | disposition home or self-care (01) | DRG 392 ==
LOC: EDUNIT# 06:53 → ER 06:55 → 4TH 12:49
PROVIDERS: ADMIT Family Medicine; ATTEND Family Medicine
DX: K52.9 Noninfective gastroenteritis and colitis, unspecified (principal); K59.00 Constipation, unspecified; I48.0 Paroxysmal atrial fibrillation; I25.810 Atherosclerosis of coronary artery bypass graft(s) without angina pectoris; K64.9 Unspecified hemorrhoids; I10 Essential (primary) hypertension; E11.9 Type 2 diabetes mellitus without complications; F03.90 Unspecified dementia, unspecified severity, without behavioral disturbance, psychotic disturbance, mood disturbance, and anxiety; Z79.84 Long term (current) use of oral hypoglycemic drugs; Z95.1 Presence of aortocoronary bypass graft; Z95.0 Presence of cardiac pacemaker
CPT/HCPCS: 36415; 74177; 80048; 80053; 81000; 85025; 86141

== ENCOUNTER 2019-02-04 05:59 | Inpatient (IN) | payer MEDICARE, OTHER ==
[~2019-02-04] VITALS: Ht 165.1 cm; Wt 77.2 kg
[~2019-02-04 05:59] MED LIST changes: +ACET-168 PO; +ASPI-983 PO; +CALC-6 PO; +DIGO125T PO; +DONE10TA41 PO; +FENO135C4 PO; +GLYC2TAB3 PO; +LOSA1TAB23 PO; +LUBI8CAP PO; +METF-399 PO; +METO-352 PO; +MULT1TAB69 PO; +PRAM1.5T5 PO; +SIMV40TA4 PO
--- OUTSIDE RECORDS SUMMARY | 2019-02-04 06:08 | XMS REPORT | Continuity of Care Document ---
Author Organization Unknown Address Unknown Allergies Active Description Code Type Severity Reaction Onset Reported/Identified Relationship to Patient Clinical Status Yes promethazine [id number] Drug Allergy Unknown N/A 06/07/2006 Yes codeine [id number] Drug Allergy Unknown N/A 07/22/2006 Yes Sulfa (Sulfonamide Antibiotics) [id number] Drug Allergy Unknown N/A 2017 Medications There is no data. Problems Date [...] PRASHANT ROBERTO, ADI Suarez Ot V45.01 09/22/2015 DOMINICK BOYD MD Ot V76.12 09/22/2015 DEB ROBERTO, DOMINICK Guerra Ot 298.9 09/22/2015 DOMINICK BOYD MD Ot 331.9 09/22/2015 DOMINICK BOYD MD Ot V12.54 09/22/2015 DOMINICK BOYD MD Ot [...] PRASHANT ROBERTO, ADI Suarez Ot 429.3 10/02/2015 ADI CERDA MD Ot V45.01 10/02/2015 ADI CERDA MD Ot 401.9 10/02/2015 PRASHANT ROBERTO, ADI Suarez Ot 414.00 10/02/2015 ADI CERDA MD Ot V45.01 10/02/2015 DOMINICK BOYD MD, Ot V76.12 10/02/2015 DOMINICK BOYD MD Ot [...] MD Ot I25.10 ATHSCL HEART DISEASE OF [place] CORONARY 10/03/2015 DOMINICK BOYD MD Ot I48.0 PAROXYSMAL ATRIAL FIBRILLATION 10/03/2015 DOMINICK BOYD MD Ot J01.00 ACUTE MAXILLARY SINUSITIS, UNSPECIFIED 10/03/2015 DOMINICK BOYD MD Ot J40 BRONCHITIS, NOT SPECIFIED ACUTE OR CH 10/03/2015 DOMINICK BOYD MD Ot J98.09 OTHER DISEASES OF BRONCHUS, NOT ELSEWHER 10/03/2015 DOMINICK BOYD MD Ot Z79.01 LEGAL CLERK (CURRENT) USE OF ANTICOAGULANT 10/12/2015 Ot V76.12 10/12/2015 Ot 397.0 10/12/2015 Ot 401.9 10/12/2015 Ot 414.00 10/12/2015 Ot 424.0 10/12/2015 Ot 429.3 10/12/2015 Ot V76.12 10/12/2015 Ot V76.12 10/12/2015 Ot 813.05 10/12/2015 Ot E000.8 10/12/2015 Ot E849.0 10/12/2015 Ot E888.9 10/12/2015 ADI CERDA MD Ot 397.0 10/12/2015 PRASHANT ROBERTO, ADI Suarez Ot 401.9 10/12/2015 ADI CERDA MD Ot 414.00 10/12/2015 PRASHANT ROBERTO, ADI Suarez Ot 424.0 10/12/2015 ADI CERDA MD Ot 429.3 10/12/2015 ADI CERDA MD Ot V45.01 10/12/2015 ADI CERDA MD Ot 401.9 10/12/2015 ADI CERDA MD Ot 414.00 10/12/2015 ADI CERDA MD Ot V45.01 10/12/2015 DEB ROBERTO, DOMINICK Guerra Ot V76.12 10/12/2015 DOMINICK BOYD MD Ot [...] PAC 01/26/2016 ADI CERDA MD Ot Z79.01 [facility] (CURRENT) USE OF ANTICOAGULANT 01/26/2016 ADI CERDA MD Ot Z79.899 OTHER [facility] (CURRENT) DRUG THERAPY 02/06/2016 ADI CERDA MD [...] PAC 02/06/2016 ADI CERDA MD Ot Z79.01 [facility] (CURRENT) USE OF ANTICOAGULANT 02/06/2016 ADI CERDA MD Ot Z79.899 OTHER LEGAL CLERK (CURRENT) DRUG THERAPY 07/24/2016 Ot 397.0 TRICUSPID [...] UMANA Ot 427.31 ATRIAL FIBRILLATION 07/24/2016 CHANELL OHRN Ot E11.9 TYPE 2 DIABETES MELLITUS WITHOUT [...] CAUSE STATUS 07/24/2016 CHANELL HORN Ot Z79.82 [facility] (CURRENT) USE OF ASPIRIN 07/24/2016 CHANELL HORN Ot Z79.899 OTHER LEGAL CLERK (CURRENT) DRUG THERAPY 07/24/2016 CHANELL HORN Ot [...] CAUSE STATUS 07/25/2016 CHANELL HORN Ot Z79.82 [facility] (CURRENT) USE OF ASPIRIN 07/25/2016 CHANELL HORN Ot Z79.899 OTHER [facility] (CURRENT) DRUG THERAPY 07/25/2016 CHANELL HORN Ot [...] STATUS 09/30/2016 BK BETANCUR APRN Ot Z79.82 LEGAL CLERK (CURRENT) USE OF ASPIRIN 09/30/2016 BK BETANCUR APRN Ot Z79.84 [facility] (CURRENT) USE OF ORAL HYPOGLYC 09/30/2016 BK BETANCUR APRN Ot Z79.899 OTHER LEGAL CLERK (CURRENT) DRUG THERAPY 10/02/2016 BK BETANCUR APRN [...] STATUS 10/02/2016 BK BETANCUR APRN Ot Z79.82 LEGAL CLERK (CURRENT) USE OF ASPIRIN 10/02/2016 BK BETANCUR APRN Ot Z79.84 [facility] (CURRENT) USE OF ORAL HYPOGLYC 10/02/2016 BK BETANCUR APRN Ot Z79.899 OTHER [facility] (CURRENT) DRUG THERAPY 10/02/2016 BK BETANCUR APRN [...] STATUS 10/02/2016 BK BETANCUR APRN Ot Z79.82 [facility] (CURRENT) USE OF ASPIRIN 10/02/2016 BK BETANCUR APRN Ot Z79.84 LEGAL CLERK (CURRENT) USE OF ORAL HYPOGLYC 10/02/2016 BK BETANCUR APRN Ot Z79.899 OTHER [facility] (CURRENT) DRUG THERAPY 10/17/2016 Ot V76.12 OTH [...] Ot V45.01 CARDIAC PACEMAKER IN SITU 10/17/2016 DOMINICK BOYD MD Ot V76.12 OTH SCREEN MAMMO-MALIGN NEOPLASM OF [place] 10/17/2016 DOMINICK BOYD MD Ot 298.9 PSYCHOSIS NOS 10/17/2016 DOMINICK BOYD MD 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 10/17/2016 DOMINICK BOYD MD Ot V12.54 PERSONAL HX OF TIA, CEREBRAL INFARCTION 10/17/2016 DOMINICK BOYD MD Ot V76.12 OTH SCREEN [...] SHEKHAR UMANA Ot 401.9 HYPERTENSION NOS 06/04/2017 MARIELENA UMANATH K Ot 414.00 CORON ATHEROSCLER NOS TYPE [...] Ot 427.31 ATRIAL FIBRILLATION 02/16/2018 JAILYN MILLER MD Ot E11.9 TYPE 2 DIABETES MELLITUS WITHOUT COMPLIC 02/16/2018 JAILYN MILLER MD, Ot G25.81 RESTLESS LEGS SYNDROME 02/16/2018 JAILYN MILLER MD Ot I10 ESSENTIAL (PRIMARY) HYPERTENSION 02/16/2018 JAILYN MILLER MD, Ot I25.10 ATHSCL HEART DISEASE OF [place] CORONARY 02/16/2018 JAILYN MILLER MD Ot I48.91 UNSPECIFIED ATRIAL FIBRILLATION 02/16/2018 JAILYN MILLER MD Ot R07.89 OTHER CHEST PAIN 02/16/2018 JAILYN MILLER MD Ot Z79.82 LEGAL CLERK (CURRENT) USE OF ASPIRIN 02/16/2018 JAILYN MILLER MD Ot Z79.84 [facility] (CURRENT) USE OF ORAL HYPOGLYC 02/16/2018 JAILYN MILLER MD Ot Z82.49 FAMILY HX OF ISCHEM HEART DIS AND OTH DI 02/16/2018 JAILYN MILLER MD Ot Z87.19 PERSONAL HISTORY OF OTHER DISEASES OF TH 02/16/2018 JAILYN MILLER MD, Ot Z88.2 ALLERGY STATUS TO SULFONAMIDES STATUS 02/16/2018 JAILYN MILLER MD, Ot Z90.49 ACQUIRED ABSENCE OF OTHER SPECIFIED PART 02/16/2018 JAILYN MILLER MD Ot Z90.710 ACQUIRED ABSENCE OF BOTH CERVIX AND UTER 02/16/2018 JAILYN MILLER MD Ot Z90.89 ACQUIRED ABSENCE OF OTHER ORGANS 02/16/2018 JAILYN MILLER MD Ot Z95.0 PRESENCE OF CARDIAC PACEMAKER 02/16/2018 PAUL ROBERTO, JAILYN Dee Ot Z95.1 PRESENCE OF AORTOCORONARY BYPASS GRAFT 06/17/2018 ADI CERDA MD Ot E78.5 HYPERLIPIDEMIA, UNSPECIFIED 06/17/2018 ADI CERDA MD Ot I08.1 RHEUMATIC DISORDERS OF BOTH [place] AND T 06/17/2018 ADI CERDA MD Ot I10 ESSENTIAL (PRIMARY) HYPERTENSION 06/17/2018 ADI CERDA MD Ot I25.10 ATHSCL HEART DISEASE OF [place] CORONARY 06/17/2018 ADI CERDA MD Ot I48.91 [...] MD Ot I25.10 ATHSCL HEART DISEASE OF [place] CORONARY 06/28/2018 ADI CERDA MD Ot I48.91 UNSPECIFIED ATRIAL FIBRILLATION 06/28/2018 ADI CERDA MD Ot I49.5 SICK SINUS SYNDROME 07/04/2018 ADI CERDA MD Ot E78.5 HYPERLIPIDEMIA, UNSPECIFIED 07/04/2018 ADI CERDA MD Ot I08.1 RHEUMATIC DISORDERS OF BOTH [place] AND T 07/04/2018 ADI CERDA MD Ot I10 ESSENTIAL (PRIMARY) HYPERTENSION 07/04/2018 ADI CERDA MD Ot I25.10 ATHSCL HEART DISEASE OF [place] CORONARY 07/04/2018 ADI CERDA MD Ot I48.91 [...] 331.9 CEREB DEGENERATION NOS 07/29/2018 DOMINICK BOYD MD Ot V12.54 PERSONAL HX [...] Ot E78.5 HYPERLIPIDEMIA, UNSPECIFIED 07/29/2018 ADI CERDA MD Ot I08.1 RHEUMATIC DISORDERS OF BOTH [place] AND T 07/29/2018 ADI CERDA MD Ot I10 ESSENTIAL (PRIMARY) HYPERTENSION 07/29/2018 ADI CERDA MD Ot I25.10 ATHSCL HEART DISEASE OF [place] CORONARY 07/29/2018 ADI CERDA MD Ot I48.91 UNSPECIFIED ATRIAL FIBRILLATION 07/29/2018 ADI CERDA MD Ot I49.5 SICK SINUS SYNDROME 07/30/2018 NORRIS OMORE MD Ot E11.9 TYPE 2 DIABETES MELLITUS WITHOUT COMPLIC 07/30/2018 NORRIS MOORE MD, Ot F03.90 UNSPECIFIED DEMENTIA WITHOUT BEHAVIORAL 07/30/2018 NORRIS MOORE MD, Ot I10 ESSENTIAL (PRIMARY) HYPERTENSION 07/30/2018 NORRIS MOORE MD, Ot I25.810 ATHEROSCLEROSIS OF CABG W/O ANGINA PECTO 07/30/2018 NORRIS MOORE MD, Ot I48.0 PAROXYSMAL ATRIAL FIBRILLATION 07/30/2018 NORRIS MOORE MD, Ot K52.9 NONINFECTIVE GASTROENTERITIS AND COLITIS 07/30/2018 NORRIS MOORE MD, Ot K59.00 CONSTIPATION, UNSPECIFIED 07/30/2018 OSCAR MD, NORRIS M Ot K64.9 UNSPECIFIED HEMORRHOIDS 07/30/2018 NORRIS MOORE MD Ot Z79.84 [facility] (CURRENT) USE OF ORAL HYPOGLYC 07/30/2018 NORRIS MOORE MD Ot Z95.0 PRESENCE OF CARDIAC PACEMAKER 07/30/2018 NORRIS MOORE MD Ot Z95.1 PRESENCE OF AORTOCORONARY BYPASS GRAFT 07/31/2018 ADI CERDA MD Ot 397.0 TRICUSPID VALVE DISEASE 07/31/2018 ADI CERDA MD Ot 401.9 HYPERTENSION NOS 07/31/2018 ADI CERDA MD Ot 414.00 CORON ATHEROSCLER NOS TYPE VESSEL, NATIV 07/31/2018 ADI CERDA MD Ot 424.0 MITRAL VALVE DISORDER 07/31/2018 ADI CERDA MD Ot 429.3 CARDIOMEGALY 07/31/2018 ADI CERDA MD Ot V45.01 CARDIAC PACEMAKER IN SITU 07/31/2018 ADI CERDA MD Ot 401.9 HYPERTENSION NOS 07/31/2018 ADI CERDA MD Ot 414.00 CORON ATHEROSCLER NOS TYPE VESSEL, NATIV 07/31/2018 ADI CERDA MD Ot V45.01 CARDIAC PACEMAKER IN SITU 07/31/2018 DEB ROBERTO, DOMINICK Guerra Ot V76.12 OTH SCREEN MAMMO-MALIGN NEOPLASM OF [place] 07/31/2018 DEB ROBERTO, DOMINICK Guerra Ot 298.9 PSYCHOSIS NOS 07/31/2018 DOMINICK BOYD MD 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 07/31/2018 DOMINICK BOYD MD Ot V12.54 PERSONAL HX OF TIA, CEREBRAL INFARCTION 07/31/2018 DOMINICK BOYD MD Ot V76.12 OTH SCREEN MAMMO-MALIGN NEOPLASM OF [place] 07/31/2018 SHEKHAR UMANA Ot 272.4 HYPERLIPIDEMIA NEC/NOS 07/31/2018 SHEKHAR UMANA Ot 401.9 HYPERTENSION NOS 07/31/2018 SHEKHAR UMANA Ot 414.00 CORON ATHEROSCLER NOS TYPE VESSEL, NATIV 07/31/2018 SHEKHAR UMANA Ot 427.31 ATRIAL FIBRILLATION 07/31/2018 ADI CERDA MD Ot E78.5 HYPERLIPIDEMIA, UNSPECIFIED 07/31/2018 ADI CERDA MD Ot I08.1 RHEUMATIC DISORDERS OF BOTH [place] AND T 07/31/2018 ADI CERDA MD Ot I10 ESSENTIAL (PRIMARY) HYPERTENSION 07/31/2018 ADI CERDA MD Ot I25.10 ATHSCL HEART DISEASE OF [place] CORONARY 07/31/2018 ADI CERDA MD Ot I48.91 UNSPECIFIED ATRIAL FIBRILLATION 07/31/2018 ADI CERDA MD Ot I49.5 SICK SINUS SYNDROME 08/01/2018 ADI CERDA MD Ot 397.0 TRICUSPID VALVE DISEASE 08/01/2018 ADI CERDA MD Ot 401.9 HYPERTENSION NOS 08/01/2018 ADI CERDA MD Ot 414.00 CORON ATHEROSCLER NOS TYPE VESSEL, NATIV 08/01/2018 ADI CERDA MD Ot 424.0 MITRAL VALVE DISORDER 08/01/2018 ADI CERDA MD Ot 429.3 CARDIOMEGALY 08/01/2018 ADI CERDA MD Ot V45.01 CARDIAC PACEMAKER IN SITU 08/01/2018 ADI CERDA MD Ot 401.9 HYPERTENSION NOS 08/01/2018 ADI CERDA MD Ot 414.00 CORON ATHEROSCLER NOS TYPE VESSEL, NATIV 08/01/2018 ADI CERDA MD Ot V45.01 CARDIAC PACEMAKER IN SITU 08/01/2018 DOMINICK BOYD MD Ot V76.12 OTH SCREEN MAMMO-MALIGN NEOPLASM OF [place] 08/01/2018 DOMINICK BOYD MD Ot 298.9 PSYCHOSIS NOS 08/01/2018 DOMINICK BOYD MD 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 08/01/2018 DOMINICK BOYD MD Ot V12.54 PERSONAL HX OF TIA, CEREBRAL INFARCTION 08/01/2018 DOMINICK BOYD MD Ot V76.12 OTH SCREEN MAMMO-MALIGN NEOPLASM OF [place] 08/01/2018 SHEKHAR UMANA Ot 272.4 HYPERLIPIDEMIA NEC/NOS 08/01/2018 SHEKHAR UMANA Ot 401.9 HYPERTENSION NOS 08/01/2018 SHEKHAR UMANA Ot 414.00 CORON ATHEROSCLER NOS TYPE VESSEL, NATIV 08/01/2018 SHEKHAR UMANA Ot 427.31 ATRIAL FIBRILLATION 08/01/2018 ADI CERDA MD Ot E78.5 HYPERLIPIDEMIA, UNSPECIFIED 08/01/2018 ADI CERDA MD Ot I08.1 RHEUMATIC DISORDERS OF BOTH [place] AND T 08/01/2018 ADI CERDA MD Ot I10 ESSENTIAL (PRIMARY) HYPERTENSION 08/01/2018 ADI CERDA MD Ot I25.10 ATHSCL HEART DISEASE OF [place] CORONARY 08/01/2018 ADI CREDA MD Ot I48.91 UNSPECIFIED ATRIAL FIBRILLATION 08/01/2018 ADI CERDA MD Ot I49.5 SICK SINUS SYNDROME 02/04/2019 Ot 611.8 02/04/2019 Ot V76.12 02/04/2019 Ot 555.9 02/04/2019 Ot 555.9 02/04/2019 Ot 250.00 02/04/2019 Ot 276.8 02/04/2019 Ot 250.00 02/04/2019 Ot 272.4 02/04/2019 Ot 401.9 02/04/2019 Ot 414.00 02/04/2019 Ot V76.12 02/04/2019 Ot 599.71 GROSS HEMATURIA 02/04/2019 Ot 789.09 ABDOMINAL PAIN, OTHER SPECIFIED SITE 02/04/2019 DOMINICK BOYD MD Ot 298.9 PSYCHOSIS NOS 02/04/2019 DOMINICK BOYD MD 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 02/04/2019 DOMINICK BOYD MD Ot V12.54 PERSONAL HX OF TIA, CEREBRAL INFARCTION 02/04/2019 DOMINICK BOYD MD Ot V76.12 OTH SCREEN MAMMO-MALIGN NEOPLASM OF [place] 02/04/2019 SHEKHAR UMANA Ot 272.4 HYPERLIPIDEMIA NEC/NOS 02/04/2019 SHEKHAR UMANA Ot 401.9 HYPERTENSION NOS 02/04/2019 SHEKHAR UMANA Ot 414.00 CORON ATHEROSCLER NOS TYPE VESSEL, NATIV 02/04/2019 SHEKHAR UMANA Ot 427.31 ATRIAL FIBRILLATION 02/04/2019 ADI CERDA MD Ot E78.5 HYPERLIPIDEMIA, UNSPECIFIED 02/04/2019 ADI CERDA MD Ot I08.1 RHEUMATIC DISORDERS OF BOTH [place] AND T 02/04/2019 ADI CERDA MD Ot I10 ESSENTIAL (PRIMARY) HYPERTENSION 02/04/2019 ADI CERDA MD Ot I25.10 ATHSCL HEART DISEASE OF [place] CORONARY 02/04/2019 PRASHANT ROBERTO, ADI Suarez Ot I48.91 UNSPECIFIED ATRIAL FIBRILLATION 02/04/2019 PRASHANT ROBERTO, ADI Suarez Ot I49.5 SICK SINUS SYNDROME 02/04/2019 Ot 611.8 02/04/2019 Ot V76.12 02/04/2019 Ot 555.9 02/04/2019 Ot 555.9 02/04/2019 Ot 250.00 02/04/2019 Ot 276.8 02/04/2019 Ot 250.00 02/04/2019 Ot 272.4 02/04/2019 Ot 401.9 02/04/2019 Ot 414.00 02/04/2019 Ot V76.12 02/04/2019 Ot 599.71 GROSS HEMATURIA 02/04/2019 Ot 789.09 ABDOMINAL PAIN, OTHER SPECIFIED SITE 02/04/2019 Ot 599.71 GROSS HEMATURIA 02/04/2019 Ot 789.09 ABDOMINAL PAIN, OTHER SPECIFIED SITE 02/04/2019 Ot 397.0 TRICUSPID VALVE DISEASE 02/04/2019 Ot 401.9 HYPERTENSION NOS 02/04/2019 Ot 414.00 CORON ATHEROSCLER NOS TYPE VESSEL, NATIV 02/04/2019 Ot 424.0 MITRAL VALVE DISORDER 02/04/2019 Ot 401.9 HYPERTENSION NOS 02/04/2019 Ot 414.01 CORONARY ATHEROSCLEROSIS OF [place] CORON 02/04/2019 Ot 789.30 ABDOMINAL/ PELVIC SWELLING,MASS/LUMP UNSP 02/04/2019 Ot V81.5 SCREEN FOR NEPHROPATHY 02/04/2019 Ot V76.12 OTH SCREEN MAMMO-MALIGN NEOPLASM OF [place] 02/04/2019 Ot 397.0 TRICUSPID VALVE DISEASE 02/04/2019 Ot 401.9 HYPERTENSION NOS 02/04/2019 Ot 414.00 CORON ATHEROSCLER NOS TYPE VESSEL, NATIV 02/04/2019 Ot 424.0 MITRAL VALVE DISORDER 02/04/2019 Ot 429.3 CARDIOMEGALY 02/04/2019 Ot V76.12 OTH SCREEN MAMMO-MALIGN NEOPLASM OF [place] 02/04/2019 Ot V76.12 OTH SCREEN MAMMO-MALIGN NEOPLASM OF [place] 02/04/2019 Ot 813.05 FX RADIUS HEAD-CLOSED 02/04/2019 Ot E000.8 OTHER EXTERNAL CAUSE STATUS 02/04/2019 Ot E849.0 ACCIDENT IN HOME 02/04/2019 Ot E888.9 FALL NOS 02/04/2019 ADI CERDA MD Ot 397.0 TRICUSPID VALVE DISEASE 02/04/2019 ADI CERDA MD Ot 401.9 HYPERTENSION NOS 02/04/2019 ADI CERDA MD Ot 414.00 CORON ATHEROSCLER NOS TYPE VESSEL, NATIV 02/04/2019 ADI CERDA MD Ot 424.0 MITRAL VALVE DISORDER 02/04/2019 ADI CERDA MD Ot 429.3 CARDIOMEGALY 02/04/2019 ADI CERDA MD Ot V45.01 CARDIAC PACEMAKER IN SITU 02/04/2019 ADI CERDA MD Ot 401.9 HYPERTENSION NOS 02/04/2019 ADI CERDA MD Ot 414.00 CORON ATHEROSCLER NOS TYPE VESSEL, NATIV 02/04/2019 ADI CERDA MD Ot V45.01 CARDIAC PACEMAKER IN SITU 02/04/2019 DOMINICK BOYD MD Ot V76.12 OTH SCREEN MAMMO-MALIGN NEOPLASM OF [place] 02/04/2019 DOMINICK BOYD MD Ot 298.9 PSYCHOSIS NOS 02/04/2019 DOMINICK BOYD MD 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 02/04/2019 DOMINICK BOYD MD Ot V12.54 PERSONAL HX OF TIA, CEREBRAL INFARCTION 02/04/2019 DOMINICK BOYD MD Ot V76.12 OTH SCREEN MAMMO-MALIGN NEOPLASM OF [place] 02/04/2019 SHEKHAR UMANA Ot 272.4 HYPERLIPIDEMIA NEC/NOS 02/04/2019 SHEKHAR UMANA Ot 401.9 HYPERTENSION NOS 02/04/2019 SHEKHAR UMANA Ot 414.00 CORON ATHEROSCLER NOS TYPE VESSEL, NATIV 02/04/2019 SHEKHAR UMANA Ot 427.31 ATRIAL FIBRILLATION 02/04/2019 ADI CERDA MD Ot E78.5 HYPERLIPIDEMIA, UNSPECIFIED 02/04/2019 ADI CERDA MD Ot I08.1 RHEUMATIC DISORDERS OF BOTH [place] AND T 02/04/2019 ADI CERDA MD Ot I10 ESSENTIAL (PRIMARY) HYPERTENSION 02/04/2019 ADI CERDA MD Ot I25.10 ATHSCL HEART DISEASE OF [place] CORONARY 02/04/2019 ADI CERDA MD Ot I48.91 UNSPECIFIED ATRIAL FIBRILLATION 02/04/2019 ADI CERDA MD, Ot I49.5 SICK SINUS SYNDROME 02/04/2019 DOMINICK BOYD MD Ot 298.9 PSYCHOSIS NOS 02/04/2019 DOMINICK BOYD MD 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 02/04/2019 DOMINICK BOYD MD Ot V12.54 PERSONAL HX OF TIA, CEREBRAL INFARCTION 02/04/2019 DOMINICK BOYD MD, Ot V76.12 OTH SCREEN MAMMO-MALIGN NEOPLASM OF [place] 02/04/2019 SHEKHAR UMANA Ot 272.4 HYPERLIPIDEMIA NEC/NOS 02/04/2019 SHEKHAR UMANA Ot 401.9 HYPERTENSION NOS 02/04/2019 SHEKHAR UMANA Ot 414.00 CORON ATHEROSCLER NOS TYPE VESSEL, NATIV 02/04/2019 SHEKHAR UMANA Ot 427.31 ATRIAL FIBRILLATION 02/04/2019 ADI CERDA MD, Ot E78.5 HYPERLIPIDEMIA, UNSPECIFIED 02/04/2019 ADI CERDA MD, Ot I08.1 RHEUMATIC DISORDERS OF BOTH [place] AND T 02/04/2019 ADI CERDA MD Ot I10 ESSENTIAL (PRIMARY) HYPERTENSION 02/04/2019 ADI CERDA MD, Ot I25.10 ATHSCL HEART DISEASE OF [place] CORONARY 02/04/2019 ADI CERDA MD, Ot I48.91 UNSPECIFIED ATRIAL FIBRILLATION 02/04/2019 ADI CERDA MD, Ot I49.5 SICK SINUS SYNDROME Procedures Code Description Performed By Performed On 45.16 ESOPHAGOGASTRODUODENOSCOPY [ EGD] W/CLOSE 06/08/2006 45.25 CLOSED ENDOSCOPIC BIOPSY OF LARGE INTEST 06/08/2006 93.39 PHYSICAL THERAPY NEC 06/17/2006 37.72 INITIAL INSERT TRANS LEADS INTO ATRIUM 08/14/2008 37.83 INITIAL INSERTION OF DUAL- CHAMBER DEVICE 08/14/2008 Results Test Result Range Complete blood count [...] urinalysis with reflex to culture NO NRG Complete blood count (CBC) with automated white blood cell (WBC) differential - 07/30/18 05:40 Blood leukocytes automated count (number/volume) 5.9 10*3/uL 4.3-11.0 Blood erythrocytes automated count (number/volume) 3.72 10*6/uL 4.35-5.85 Venous blood hemoglobin measurement (mass/volume) 10.8 g/dL 11.5-16.0 Blood hematocrit (volume fraction) 32 % 35-52 Automated erythrocyte mean corpuscular volume 85 [foz_us] 80-99 Automated erythrocyte mean corpuscular hemoglobin (mass per erythrocyte) 29 pg 25-34 Automated erythrocyte mean corpuscular hemoglobin concentration measurement ( mass/volume) 34 g/dL 32-36 Automated erythrocyte distribution width ratio 14.5 % 10.0-14.5 Automated blood platelet count (count/volume) 290 10*3/uL 130-400 Automated blood platelet mean volume measurement 10.3 [foz_us] 7.4-10.4 Automated blood neutrophils/100 leukocytes 74 % 42-75 Automated blood lymphocytes/100 leukocytes 15 % 12-44 Blood monocytes/100 leukocytes 10 % 0-12 Automated blood eosinophils/100 leukocytes 0 % 0-10 Automated blood basophils/100 leukocytes 1 % 0-10 Blood neutrophils automated count (number/volume) 4.3 10*3 1.8-7.8 Blood lymphocytes automated count (number/volume) 0.9 10*3 1.0-4.0 Blood monocytes automated count (number/volume) 0.6 10*3 0.0-1.0 Automated eosinophil count 0.0 10*3/uL 0.0-0.3 Automated blood basophil count (count/volume) 0.0 10*3/uL 0.0-0.1 Whole blood basic metabolic panel - 07/30/18 05:40 Serum or plasma sodium measurement (moles/volume) 133 mmol/L 135-145 Serum or plasma potassium measurement (moles/volume) 4.3 mmol/L 3.6-5.0 Serum or plasma chloride measurement (moles/volume) 100 mmol/L 98-107 Carbon dioxide 23 mmol/L 21-32 Serum or plasma anion gap determination (moles/volume) 10 mmol/L 5-14 Serum or plasma urea nitrogen measurement (mass/volume) 13 mg/dL 7-18 Serum or plasma creatinine measurement (mass/volume) 0.76 mg/dL 0.60-1.30 Serum or plasma urea nitrogen/creatinine mass ratio 17 NRG Serum or plasma creatinine measurement with calculation of estimated glomerular filtration rate > NRG Serum or plasma glucose measurement (mass/volume) 138 mg/dL 70-105 Serum or plasma calcium measurement (mass/volume) 9.5 mg/dL 8.5-10.1 Encounters ACCT No. Visit Date/Time Discharge Status Pt. Type Provider Facility Loc./Unit Complaint [id number] 07/29/2018 12:49:00 07/30/2018 13:05:00 DIS Inpatient OSCAR ROBERTO, NORRIS Lamb [facility] 4TH COLITIS [id number] 04/17/2018 10:41:00 04/17/2018 23:59:59 CLS Outpatient ADI CERDA MD [facility] CARD AF,CAD,HTN [id number] 02/16/2018 11:10:00 02/16/2018 13:38:00 DIS Emergency JAILYN MILLER MD [facility] ER CP/SOA [id number] 09/30/2016 13:57:00 09/30/2016 14:39:00 DIS Emergency BK BETANCUR APRN [facility] ER FALL/R HAND INJ [id number] 07/24/2016 13:29:00 07/24/2016 15:10:00 DIS Emergency ESEQUIEL CRAWFORDCHANELL Paco [facility] ER L HAND RING FINGER INJ [id number] 01/25/2016 08:40:00 01/26/2016 09:50:00 DIS Outpatient ADI CERDA MD [facility] CATH CARLOS,CAD,HLP,HTN [id number] 10/02/2015 12:28:00 10/03/2015 14:32:00 DIS Inpatient DOMINICK BOYD MD [facility] 4TH R MAXILLARY SINUSITIS BRONCHITIS W/ HYPOXIA [id number] 06/20/2015 12:39:00 06/20/2015 23:59:59 CLS Outpatient SHEKHAR UMANA [facility] CARD AF,CAD [id number] 05/05/2015 10:48:00 05/05/2015 23:59:59 CLS Outpatient DOMINICK BOYD MD [facility] RAD SCREENING [id number] 12/05/2014 15:26:00 12/05/2014 20:52:00 DIS Emergency ROMAINE YAO DO [facility] ER COUGH,VOMITING,CHILLS [id number] 02/12/2014 12:10:00 02/12/2014 23:59:59 CLS Outpatient DOMINICK BOYD MD [facility] RAD CONFUSION [id number] 07/16/2013 09:39:00 07/16/2013 23:59:59 CLS Outpatient DOMINICK BOYD MD [facility] RAD SCREENING [id number] 03/12/2013 13:36:00 03/13/2013 12:30:00 DIS Inpatient ADI CERDA MD [facility] CSD CHEST PAIN [id number] 03/02/2013 07:49:00 03/02/2013 23:59:59 CLS Outpatient ADI CERDA MD [facility] RAD CAD,PPM,HTN [id number] 02/23/2013 08:31:00 02/23/2013 23:59:59 CLS Outpatient ADI CERDA MD [facility] CARD CAD,PPM,HTN [id number] 02/04/2019 06:02:00 ACT Emergency PAUL ROBERTO, JAILYN Dee [facility] ER [facility] [id number] 02/04/2019 04:48:00 Document Registration [id number] 02/04/2019 04:48:00 Document Registration [id number] 02/04/2019 04:48:00 Document Registration [id number] 02/04/2019 04:48:00 Document Registration [id number] 02/04/2019 04:48:00 Document Registration [id number] 01/21/2015 09:35:00 Document Registration [id number] 12/13/2014 19:30:00 Document Registration [id number] 07/14/2012 14:34:00 Document Registration [id number] 07/10/2012 10:45:00 Document Registration [id number] 07/05/2011 11:17:00 Document Registration [id number] 04/04/2011 09:44:00 Document Registration [id number] 07/03/2010 10:12:00 Document Registration [id number] 02/15/2010 16:41:00 Document Registration [id number] 02/15/2010 13:49:00 Document Registration [id number] 02/07/2010 11:19:00 Document Registration [id number] 02/06/2010 07:50:00 Document Registration [id number] 12/01/2009 12:15:00 Document Registration [id number] 11/30/2009 16:27:00 Document Registration [id number] 06/28/2009 09:37:00 Document Registration [id number] 08/12/2008 14:12:00 Document Registration [id number] 11/22/2006 07:51:00 Document Registration [id number] 07/17/2006 08:15:00 Document Registration [id number] 07/03/2006 13:08:00 Document Registration [id number] 06/27/2006 11:41:00 Document Registration [id number] 06/20/2006 12:17:00 Document Registration [id number] 06/06/2006 10:07:00 Document Registration [id number] 04/11/2006 10:01:00 Document Registration [id number] 06/20/2015 23:07:06 ACT Document Registration
[2019-02-04 06:40] LABS: BASOPHILS % (AUTO) 0 % (0-10); EOSINOPHILS % (AUTO) 0 % (0-10); HEMATOCRIT 32 % (35-52); HEMOGLOBIN 10.9 G/DL (11.5-16.0); LYMPHOCYTES # (AUTO) 0.7 X 10^3 (1.0-4.0); LYMPHOCYTES % (AUTO) 6 % (12-44); MEAN CORPUSCULAR HEMOGLOBIN 26 PG (25-34); MEAN CORPUSCULAR HGB CONC 34 G/DL (32-36); MEAN CORPUSCULAR VOLUME 78 FL (80-99); MEAN PLATELET VOLUME 10.7 FL (7.4-10.4); MONOCYTES # (AUTO) 0.9 X 10^3 (0.0-1.0); MONOCYTES % (AUTO) 8 % (0-12); NEUTROPHILS % (AUTO) 86 % (42-75); PLATELET COUNT 383 10^3/uL (130-400); WHITE BLOOD COUNT 11.6 10^3/uL (4.3-11.0)
[2019-02-04 06:51] LABS: ANISOCYTOSIS SLIGHT; BAND NEUTROPHILS 0 %; BASOPHILS % (MANUAL) 0 %; ELLIPT/OVALOCYTES SLIGHT; EOSINOPHILS % (MANUAL) 0 %; LYMPHOCYTES % (MANUAL) 7 %; MONOCYTES % (MANUAL) 9 %; NEUTROPHILS % (MANUAL) 84 %; POIKILOCYTOSIS SLIGHT
[2019-02-04 06:52] LABS: CRENATED RBC SLIGHT; ROULEAUX SLIGHT
[2019-02-04 06:56] LABS: ALBUMIN 4.2 GM/DL (3.2-4.5); BILIRUBIN,TOTAL 0.4 MG/DL (0.1-1.0); CREATININE SERUM 1.31 MG/DL (0.60-1.30); TOTAL PROTEIN 7.2 GM/DL (6.4-8.2)
[2019-02-04] MEDS ORDERED: NS IV 500 ML 500 ML IV ONE (07:21)
--- NOTE | 2019-02-04 07:33 | ED Fall/Injury ---
General Chief Complaint: Trauma-Non Activation Stated Complaint: FALL Nursing Triage Note: PT REPORTED BY SPOUSE TO HAVE BEEN FOUND FACE FIRST ON THE GROUND AT 0500. UNKNOWN AMOUT OF TIME SPENT ON THE GROUND Source: patient Exam Limitations: no limitations History of Present Illness Date Seen by Provider: Feb 04, 2019 Time Seen by Provider: 05:59 Initial Comments Here with report of being found on the floor. states that patient most got up during the night and had fallen. He is not sure exactly when. He states that she gets up and down throughout the night. She apparently was in the closet and had tried to change clothes when she fell out of the closet onto the floor. She complains of right shoulder, elbow and hip pain. Unsure of loss of consciousness. There is slight bruising around the right eyebrow area. Patient denies neck or back pain. Denies breathing problems. Does have history of Parkinson's and dementia and is a resident of assisted living facility. Arrives via EMS. Occurred: this morning Severity: moderate Injuries/Pain Location: face, upper extremity, pelvis Context: unknown Loss of Consciousness: unsure Modifying Factors: Worse With Movement; Improves With Rest Associated Symptoms (Fall): No Abdominal Pain, No Chest Pain, No Headache, No Lightheadedness, No Muscle Spasms, No Nausea/Vomiting, No Neck Pain, No Shortness of Air Allergies and Home Medications Allergies Coded Allergies: Sulfa (Sulfonamide Antibiotics) (Verified Allergy, Unknown, 07/29/18) Home Medications Acetaminophen 500 Mg Tablet, 1,000 MG PO Q4H PRN for PAIN-MILD, (Reported) Apixaban 5 Mg Tablet, 5 MG PO BID, (Reported) Balsalazide Disodium 750 Mg Capsule, 2,250 MG PO TID, (Reported) TAKES 3 (750MG) CAPSULES Citalopram Hydrobromide 10 Mg Tablet, 10 MG PO HS, (Reported) LAST FILLED #90 18 Digoxin 125 Mcg Tablet, 125 MCG PO DAILY, (Reported) Fenofibric Acid (Choline) 135 Mg Capsule.dr, 135 MG PO HS, (Reported) Glycopyrrolate 2 Mg Tablet, 2 MG PO BID, (Reported) Losartan/Hydrochlorothiazide 1 Each Tablet, 1 TAB PO DAILY, (Reported) LAST FILLED #90 18 Lubiprostone 8 Mcg Capsule, 8 MCG PO BID, (Reported) Metformin HCl 1,000 Mg Tablet, 1,000 MG PO BID, (Reported) Metoprolol Succinate 50 Mg Tab.er.24h, 50 MG PO HS, (Reported) LAST FILLED #90 4-27-18 Pantoprazole Sodium 40 Mg Tablet.dr, 40 MG PO HS, (Reported) Pramipexole Di-HCl 1.5 Mg Tablet, 1.5 MG PO TID, (Reported) Simvastatin 40 Mg Tablet, 40 MG PO HS, (Reported) Patient Home Medication List Home Medication List Reviewed: Yes Review of Systems Review of Systems Constitutional: see HPI; No chills, No fever, No weakness Eyes: No Symptoms Reported Ears, Nose, Mouth, Throat: see HPI; denies nose pain, denies epistaxis Respiratory: No cough, No short of breath Cardiovascular: No chest pain, No edema Gastrointestinal: No abdominal pain, No nausea, No vomiting Genitourinary: no symptoms reported Musculoskeletal: joint pain, muscle pain Skin: change in color; No lesions Psychiatric/Neurological: Denies Headache; Weakness All Other Systems Reviewed Negative Unless Noted: Yes Past Mfajxmg-Yaphbg-Ktobuf Hx Past Med/Social Hx: Reviewed Nursing Past Med/Soc Hx Patient Social History Alcohol Use: Occasionally Uses Alcohol Beverage of Choice: Wine Recreational Drug Use: No Smoking Status: Never a Smoker Recent Foreign Travel: No Contact w/Someone Who Travel: No Recent Infectious Disease Expo: No Recent Hopitalizations: No Physical Abuse: No Sexual Abuse: No Mistreated: No Fear: No Immunizations Up To Date Tetanus Booster (TDap): Unknown PED Vaccines UTD: Yes Date of Pneumonia Vaccine: Jan 24, 2013 Date of Influenza Vaccine: Jun 25, 2018 Seasonal Allergies Seasonal Allergies: No Past Medical History Surgeries: Yes (pacemaker) Adenoidectomy, Appendectomy, Cardiac, CABG, Hysterectomy, Orthopedic, Pacemaker , Tonsillectomy Respiratory: No Asthma Currently Using CPAP: No Currently Using BIPAP: No Cardiac: Yes Atrial Fibrillation, Coronary Artery Disease, Hypertension Neurological: Yes Parkinson's Disease : No 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: No Female 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: Denies [employer]OR History: Hysterectomy Sexually Transmitted Disease: No HIV/AIDS: No Genitourinary: No Gastrointestinal: Yes Colitis Musculoskeletal: Yes Arthritis Endocrine: Yes Diabetes, Non-Insulin dep Cataract Loss of Vision: Denies Hearing Impairment: Hard of Hearing Cancer: No Skin Psychosocial: No Anxiety, Depression Integumentary: No Blood Disorders: No Family Medical History Reviewed Nursing Family Hx Cardiovascular disease 19 FATHER, , Age:90, Onset:Unknown 19 MOTHER, , Age:86, Onset:Unknown Completed stroke 19 FATHER, , Age:90, Onset:Unknown 19 MOTHER, , Age:86, Onset:Unknown No Family History of: AIDS Abdominal aortic aneurysm Easton's disease Alcoholism Alzheimer's disease Aphasia Arthritis Asthma Cancer of mouth Cataracts Colon cancer Congenital disease Congenital heart disease Coronary thrombosis Cystic fibrosis Deafness or hearing loss Dementia Diabetes mellitus Drug abuse Dysphasia Fibrocystic disease of breast Gastroenteritis Glaucoma Headache disorder Hypercholesterolemia Hypertension Infertility Kidney disease Myocardial infarction Neoplasm Not obtainable due to adoption Osteoporosis Parkinson's disease Prostate cancer Psychosocial problem Respiratory disorder Seizure disorder Severe allergy Thyroid disease Tuberculosis Visual disorder Heart Disease, Hypertension, Stroke Physical Exam Vital Signs Vital Signs - First Documented 02/04/19 05:59 Temp 97.9 Pulse 79 Resp 20 B/P (MAP) 100/59 (73) Pulse Ox 96 O2 Delivery Nasal Cannula Capillary Refill : Less Than 3 Seconds Height, Weight, BMI Height: 5'5.00" Weight: 168lbs. 8.0oz. 76.510901cq; 28.0 BMI Method:Stated General Appearance: WD/WN, no apparent distress HEENT: PERRL/EOMI, pharynx normal Neck: non-tender, full range of motion, supple, normal inspection Cardiovascular: regular rate, rhythm, no murmur Respiratory: lungs clear, normal breath sounds Gastrointestinal: non tender, soft Back: normal inspection, no CVA tenderness, no vertebral tenderness Extremities: pelvis stable, pedal edema (1+ bilaterally to both ankles.), other (tender with external rotation of the right hip. Tender on flexion and extension of the elbow on the right.) Neurologic/Psychiatric: alert, normal mood/affect, other (does have baseline confusion and time but otherwise no self, place and family) Skin: warm/dry, ecchymosis (mild around the right brow area) Progress/Results/Core Measures Results/Orders Lab Results Laboratory Tests Test 02/04/19 06:10 02/04/19 07:45 02/04/19 08:00 02/04/19 08:25 Range/Units White Blood Count 11.6 H 4.3-11.0 10^3/uL Red Blood Count 4.17 L 4.35-5.85 10^6/uL Hemoglobin 10.9 L 11.5-16.0 G/DL Hematocrit 32 L 35-52 % Mean Corpuscular Volume 78 L 80-99 FL Mean Corpuscular Hemoglobin 26 25-34 PG Mean Corpuscular Hemoglobin Concent 34 32-36 G/DL Red Cell Distribution Width 15.0 H 10.0-14.5 % Platelet Count 383 130-400 10^3/uL Mean Platelet Volume 10.7 H 7.4-10.4 FL Neutrophils (%) (Auto) 86 H 42-75 % Lymphocytes (%) (Auto) 6 L 12-44 % Monocytes (%) (Auto) 8 0-12 % Eosinophils (%) (Auto) 0 0-10 % Basophils (%) (Auto) 0 0-10 % Neutrophils # (Auto) 10.0 H 1.8-7.8 X 10^3 Lymphocytes # (Auto) 0.7 L 1.0-4.0 X 10^3 Monocytes # (Auto) 0.9 0.0-1.0 X 10^3 Eosinophils # (Auto) 0.0 0.0-0.3 10^3/uL Basophils # (Auto) 0.0 0.0-0.1 10^3/uL Neutrophils % (Manual) 84 % Lymphocytes % (Manual) 7 % Monocytes % (Manual) 9 % Eosinophils % (Manual) 0 % Basophils % (Manual) 0 % Band Neutrophils 0 % Poikilocytosis SLIGHT Anisocytosis SLIGHT Crenated Cell SLIGHT Elliptocytes SLIGHT Rouleau SLIGHT Sodium Level 127 L 135-145 MMOL/L Potassium Level 4.0 3.6-5.0 MMOL/L Chloride Level 94 L 98-107 MMOL/L Carbon Dioxide Level 18 L 21-32 MMOL/L Anion Gap 15 H 5-14 MMOL/L Blood Urea Nitrogen 19 H 7-18 MG/DL Creatinine 1.31 H 0.60-1.30 MG/DL Estimat Glomerular Filtration Rate 38 BUN/Creatinine Ratio 15 Glucose Level 261 H 70-105 MG/DL Calcium Level 10.0 8.5-10.1 MG/DL Corrected Calcium 9.8 8.5-10.1 MG/DL Total Bilirubin 0.4 0.1-1.0 MG/DL Aspartate Amino Transf (AST/SGOT) 31 5-34 U/L Alanine Aminotransferase (ALT/SGPT) 13 0-55 U/L Alkaline Phosphatase 47 40-136 U/L C-Reactive Protein High Sensitivity 0.22 0.00-0.50 MG/DL Total Protein 7.2 6.4-8.2 GM/DL Albumin 4.2 3.2-4.5 GM/DL Urine Color YELLOW Urine Clarity CLEAR Urine pH 8 5-9 Urine Specific Haslett 1.010 L 1.016-1.022 Urine Protein 2+ H NEGATIVE Urine Glucose (UA) NEGATIVE NEGATIVE Urine Ketones NEGATIVE NEGATIVE Urine Nitrite NEGATIVE NEGATIVE Urine Bilirubin NEGATIVE NEGATIVE Urine Urobilinogen NORMAL NORMAL MG/DL Urine Leukocyte Esterase NEGATIVE NEGATIVE Urine RBC (Auto) NEGATIVE NEGATIVE Urine RBC NONE /HPF Urine WBC RARE /HPF Urine Squamous Epithelial Cells RARE /HPF Urine Renal Epithelial Cells NONE /HPF Urine Crystals PRESENT H /LPF Urine Amorphous Sediment FEW JAMES PHOSPHATE H /LPF Urine Bacteria NEGATIVE /HPF Urine Casts PRESENT /LPF Urine Hyaline Casts 5-10 H /LPF Urine Mucus NEGATIVE /LPF Urine Culture Indicated NO Total Creatine Kinase 967 H 29-168 U/L Lactic Acid Level 3.37 *H 0.50-2.00 MMOL/L My Orders Orders - PEDRO CROFT MD Ct Head/Cervical Spine Wo (02/04/19 06:23) Shoulder, Right, 3 Views (02/04/19 06:23) Elbow, Right, 3 Views (02/04/19 06:23) Pelvis With Right Hip 2-3views (02/04/19 06:23) Cbc With Automated Diff (02/04/19 06:23) Comprehensive Metabolic Panel (02/04/19 06:23) Ua Culture If Indicated (02/04/19 06:23) Ed Iv/Invasive Line Start (02/04/19 06:23) Manual Differential (02/04/19 06:10) Ct Pelvis Wo (02/04/19 07:06) Ed Iv/Invasive Line Start (02/04/19 07:21) Ns Iv 500 Ml (Sodium Chloride 0.9%) (02/04/19 07:21) Ns Iv 1000 Ml (Sodium Chloride 0.9%) (02/04/19 08:16) Hs C Reactive Protein (02/04/19 08:16) Lactic Acid Analyzer (02/04/19 08:16) Blood Culture (02/04/19 08:16) Chest 1 View, Ap/Pa Only (02/04/19 08:18) Creatine Kinase (02/04/19 08:25) Orthostatic Vital Signs (Adult (02/04/19 09:10) Medications Given in ED Current Medications Medications Dose Ordered Sig/Maricarmen Route Start Time Stop Time Status Last Admin Dose Admin Sodium Chloride 500 ml @ 0 mls/hr Q0M ONCE IV 02/04/19 07:21 02/04/19 07:22 DC 02/04/19 07:30 500 MLS/HR Sodium Chloride 1,000 ml @ 0 mls/hr Q0M ONCE IV 02/04/19 08:16 02/04/19 08:18 DC 02/04/19 08:21 1,000 MLS/HR Vital Signs/I&O 02/04/19 02/04/19 05:59 09:15 Temp 97.9 Pulse 79 70 76 76 Resp 20 B/P (MAP) 100/59 (73) 87/48 (61) 109/66 (80) 62/50 (54) Pulse Ox 96 O2 Delivery Nasal Cannula Blood Pressure Mean: 73 Progress Progress Note : Progress Note Seen and evaluated. IV, labs, UA, x-ray of right shoulder, elbow and hip with pelvis ordered. CT head and neck ordered due to unwitnessed fall. Added CT of pelvis due to pain without clear findings on x-ray. We will give normal saline 500 mL bolus due to lab findings and blood pressure that is on the lower end of normal. 0830: We have added another liter of normal saline and we'll get blood cultures and lactic acid due to hypotension with blood pressure 93/58. We'll also check total CK and chest x-ray. Monitor patient. 0922: Patient is significantly orthostatic positive with systolic blood pressure 60 when standing and quite weak. Lactic acid is elevated but there is no signs of infection including urine and chest x-ray. At this point, I believe lactic acid is related to dehydration and the fact that she was lying on the floor for some time. She was on the floor long enough to cause elevated total CK indicating rhabdomyolysis. At this point antibiotics are not indicated as there is no infectious findings. This is discussed with Dr. Vigil who agrees. She accepts patient for admission, inpatient status due to multiple findings. This is discussed with patient and family who agree with plan. Diagnostic Imaging Diagonstic Imaging: CT Plain Films/CT/US/NM/MRI: c-spine, head Comments [id number] [place] NAME: JEREMÍAS COLEMAN [facility] REC#: [id number] PT STATUS: REG ER : 1930 PHYSICIAN: PEDRO CROFT MD ADMIT DATE: 02/04/19/ER Draft Date of Exam:02/04/19 CT HEAD/CERVICAL SPINE WO PROCEDURE: CT head and CT cervical spine without contrast. TECHNIQUE: Multiple contiguous axial images were obtained through the brain and cervical spine without the use of intravenous contrast. Sagittal and coronal reformations through the cervical spine were then performed. Auto Exposure Controls were utilized during the CT exam to meet ALARA standards for radiation dose reduction. INDICATION: Fall complaining of right arm and hip pain. Comparison is made with prior CT from 09/30/2016. CT HEAD: The ventricles and sulci are appropriate for the patient's age. Old lacunar infarct in the right basal ganglia is noted. Old infarct in the right caudate is also noted. These appear stable. No sulcal effacement or midline shift is identified. No acute intra-axial or extra-axial hemorrhage is identified. The cisterns are patent. The visualized paranasal sinuses are clear. IMPRESSION: Chronic changes, stable when compared with prior head CT from 09/30/2016. No acute intracranial process is detected. CT CERVICAL SPINE: Curvature is within normal limits. Minimal anterolisthesis of C4 on C5 and C5 on C6 is noted, likely on a degenerative basis. There is multilevel degenerative disc and facet disease. Degenerative disc disease is greatest at C6-C7 level where there is moderate disc space narrowing and anterior osteophyte formation. No fracture is identified. The prevertebral tissues are within normal limits. The odontoid is intact. IMPRESSION: Cervical spondylosis. No acute bony abnormality is detected. Dictated on workstation # [id number] Dict: 02/04/19816 Trans: 02/04/19823 [facility] [id number] Interpreted by: DANIEL LOWE MD Electronically signed by: Diagonstic Imaging: Xray Comments [facility] [place] NAME: JEREMÍAS COLEMAN [facility] REC#: [id number] PT STATUS: REG ER : 1930 PHYSICIAN: PEDRO CROFT MD ADMIT DATE: 02/04/19/ER Draft Date of Exam:02/04/19 SHOULDER, RIGHT, 3 VIEWS INDICATION: Fall with right shoulder pain AP, oblique, and transscapular views of the right shoulder are obtained. No fracture or dislocation is seen. There is degenerative change of glenohumeral joint and AC joint of mild severity. IMPRESSION: Degenerative changes of the right shoulder with no acute bony abnormality. Dictated on workstation # [id number] Dict: 02/04/19817 Trans: 02/04/19[facility] [id number] Interpreted by: AMBER LEE MD Electronically signed by: Diagonstic Imaging: Xray Comments [facility] [place] [place] [facility] [id number] PT STATUS: REG ER : 1930 PHYSICIAN: PEDRO RCOFT MD ADMIT DATE: 02/04/19/ER Draft Date of Exam:02/04/19 ELBOW, RIGHT, 3 VIEWS INDICATION: Fall with right elbow pain. AP, oblique, lateral views of the right elbow are obtained. No fracture or acute bony abnormality seen. There is no elevation of posterior fat pad. IMPRESSION: Negative right elbow. Dictated on workstation # [id number] Dict: 02/04/19819 Trans: 02/04/19820 [facility] [id number] Interpreted by: AMBER LEE MD Electronically signed by: Diagonstic Imaging: Xray Plain Films/CT/US/NM/MRI: pelvis, hip Comments [facility] [place] NAME: JEREMÍAS COLEMAN [facility] REC#: [id number] PT STATUS: REG ER : 1930 PHYSICIAN: PEDRO CROFT MD ADMIT DATE: 02/04/19/ER Draft Date of Exam:02/04/19 PELVIS WITH RIGHT HIP 2-3VIEWS INDICATION: Fall with right hip pain AP pelvis and AP and oblique views of the right hip are obtained. No fracture or acute bony abnormality is seen. There is joint space narrowing both hips, right worse than left, compatible with degenerative change. There is no lytic or blastic lesion. IMPRESSION: Degenerative changes of both hips, right worse than left. No acute bony abnormality. Dictated on workstation # [id number] Dict: 02/04/19811 Trans: 02/04/19814 [facility] [id number] Interpreted by: AMBER LEE MD Electronically signed by: Diagonstic Imaging: CT Plain Films/CT/US/NM/MRI: pelvis Comments [facility] [place] NAME: JEREMÍAS COLEMAN [facility] REC#: [id number] PT STATUS: REG ER : 1930 PHYSICIAN: PEDRO CROFT MD ADMIT DATE: 02/04/19/ER Draft Date of Exam:02/04/19 CT PELVIS WO PROCEDURE: CT pelvis without contrast. TECHNIQUE: Multiple contiguous axial images were obtained through the pelvis without the use of intravenous contrast. Sagittal and coronal reformations were performed. Auto Exposure Controls were utilized during the CT exam to meet ALARA standards for radiation dose reduction. INDICATION: Fall and complaining of right hip pain. FINDINGS: Femoral acetabular alignment is normal. There are osteoarthritic changes bilaterally, greatest on the right with moderate joint space narrowing present. Both femoral heads and necks appear to be intact. Superior and inferior pubic rami are unremarkable. SI joints and symphysis are non-widened. Marked hypertrophic degenerative changes in facets of lower lumbar spine are noted. IMPRESSION: Chronic changes. No acute bony abnormality is detected. Dictated on workstation # [id number] Dict: 02/04/19821 Trans: 02/04/19829 [id number] Interpreted by: DANIEL LOWE MD Electronically signed by: Diagonstic Imaging: Xray Plain Films/CT/US/NM/MRI: chest Comments [facility] [place] NAME: JEREMÍAS COLEMAN [facility] REC#: [id number] PT STATUS: REG ER : 1930 PHYSICIAN: PEDRO CROFT MD ADMIT DATE: 02/04/19/ER Draft Date of Exam:02/04/19 CHEST 1 VIEW, AP/PA ONLY INDICATION: Fall with chest pain. TECHNIQUE: A frontal chest was obtained at 0827 hours. COMPARISON: 02/16/2018. FINDINGS: There is cardiomegaly and post sternotomy change. The pacemaker device is unchanged. There is no focal infiltrate, pneumothorax, or pleural fluid. IMPRESSION: Cardiomegaly with evidence of previous surgery and unchanged pacemaker device. No acute infiltrate, pneumothorax, or pleural fluid. Dictated on workstation # [id number] Dict: 02/04/19 0834 Trans: 02/04/19 0837 [id number] Interpreted by: AMBER LEE MD Electronically signed by: Focused Exam Lactate Level 02/04/19 08:25: Lactic Acid Level 3.37*H Lactic Acid Level Laboratory Tests Test 02/04/19 08:25 Lactic Acid Level 3.37 MMOL/L (0.50-2.00) *H Departure Communication (Admissions) Time/Spoke to Admitting Phy: 09:22 Impression Primary Impression: Rhabdomyolysis Qualified Codes: T79.6XXA - Traumatic ischemia of muscle, initial encounter Additional Impressions: Orthostatic hypotension Hyponatremia Elevated lactic acid level Disposition: ADMITTED INPATIENT Condition: Stable Admissions Decision to Admit Reason: Admit from ER (General) Decision to Admit/Date: Feb 04, 2019 Time/Decision to Admit Time: 09:22 Departure-Patient Inst. Referrals: DOMINICK BOYD MD (PCP/Family) Primary Care Physician PEDRO CROFT MD Feb 04, 2019 07:33
[2019-02-04 07:48] LABS: BILIRUBIN,URINE NEGATIVE (NEGATIVE); CLARITY,URINE CLEAR; COLOR,URINE YELLOW; GLUCOSE, URINE (UA) NEGATIVE (NEGATIVE); KETONES,URINE NEGATIVE (NEGATIVE); LEUKOCYTE ESTERASE ,URINE NEGATIVE (NEGATIVE); NITRITE,URINE NEGATIVE (NEGATIVE); PH,URINE 8 (5-9); PROTEIN,URINE 2+ (NEGATIVE); UROBILINOGEN,URINE NORMAL (NORMAL)
--- NOTE | 2019-02-04 08:15 | Diagnostic Imaging Report ---
INDICATION: Fall with right hip pain AP pelvis and AP and oblique views of the right hip are obtained. No fracture or acute bony abnormality is seen. There is joint space narrowing both hips, right worse than left, compatible with degenerative change. There is no lytic or blastic lesion. IMPRESSION: Degenerative changes of both hips, right worse than left. No acute bony abnormality. Dictated by: Dictated on workstation # [id number]
[2019-02-04] MEDS ORDERED: NS IV 1000 ML 1,000 ML IV ONE (08:16)
--- NOTE | 2019-02-04 08:21 | Diagnostic Imaging Report ---
INDICATION: Fall with right shoulder pain AP, oblique, and transscapular views of the right shoulder are obtained. No fracture or dislocation is seen. There is degenerative change of glenohumeral joint and AC joint of mild severity. IMPRESSION: Degenerative changes of the right shoulder with no acute bony abnormality. Dictated by: Dictated on workstation # [id number]
[2019-02-04 08:22] LABS: BACTERIA,URINE NEGATIVE /HPF; SQUAMOUS EPITHELIAL CELL,UR RARE /HPF; WBC,URINE RARE /HPF
--- NOTE | 2019-02-04 08:22 | Diagnostic Imaging Report ---
INDICATION: Fall with right elbow pain. AP, oblique, lateral views of the right elbow are obtained. No fracture or acute bony abnormality seen. There is no elevation of posterior fat pad. IMPRESSION: Negative right elbow. Dictated by: Dictated on workstation # [id number]
[2019-02-04 08:23] LABS: AMORPHOUS SEDIMENT,UR FEW AMOR PHOSPHATE /LPF
--- NOTE | 2019-02-04 08:25 | Diagnostic Imaging Report ---
PROCEDURE: CT head and CT cervical spine without contrast. TECHNIQUE: Multiple contiguous axial images were obtained through the brain and cervical spine without the use of intravenous contrast. Sagittal and coronal reformations through the cervical spine were then performed. Auto Exposure Controls were utilized during the CT exam to meet ALARA standards for radiation dose reduction. INDICATION: Fall complaining of right arm and hip pain. Comparison is made with prior CT from 09/30/2016. CT HEAD: The ventricles and sulci are appropriate for the patient's age. Old lacunar infarct in the right basal ganglia is noted. Old infarct in the right caudate is also noted. These appear stable. No sulcal effacement or midline shift is identified. No acute intra-axial or extra-axial hemorrhage is identified. The cisterns are patent. The visualized paranasal sinuses are clear. IMPRESSION: Chronic changes, stable when compared with prior head CT from 09/30/2016. No acute intracranial process is detected. CT CERVICAL SPINE: Curvature is within normal limits. Minimal anterolisthesis of C4 on C5 and C5 on C6 is noted, likely on a degenerative basis. There is multilevel degenerative disc and facet disease. Degenerative disc disease is greatest at C6-C7 level where there is moderate disc space narrowing and anterior osteophyte formation. No fracture is identified. The prevertebral tissues are within normal limits. The odontoid is intact. IMPRESSION: Cervical spondylosis. No acute bony abnormality is detected. Dictated by: Dictated on workstation # [id number]
--- NOTE | 2019-02-04 08:30 | Diagnostic Imaging Report ---
PROCEDURE: CT pelvis without contrast. TECHNIQUE: Multiple contiguous axial images were obtained through the pelvis without the use of intravenous contrast. Sagittal and coronal reformations were performed. Auto Exposure Controls were utilized during the CT exam to meet ALARA standards for radiation dose reduction. INDICATION: Fall and complaining of right hip pain. FINDINGS: Femoral acetabular alignment is normal. There are osteoarthritic changes bilaterally, greatest on the right with moderate joint space narrowing present. Both femoral heads and necks appear to be intact. Superior and inferior pubic rami are unremarkable. SI joints and symphysis are non-widened. Marked hypertrophic degenerative changes in facets of lower lumbar spine are noted. IMPRESSION: Chronic changes. No acute bony abnormality is detected. Dictated by: Dictated on workstation # [id number]
--- NOTE | 2019-02-04 08:37 | Diagnostic Imaging Report ---
INDICATION: Fall with chest pain. TECHNIQUE: A frontal chest was obtained at 0827 hours. COMPARISON: 02/16/2018. FINDINGS: There is cardiomegaly and post sternotomy change. The pacemaker device is unchanged. There is no focal infiltrate, pneumothorax, or pleural fluid. IMPRESSION: Cardiomegaly with evidence of previous surgery and unchanged pacemaker device. No acute infiltrate, pneumothorax, or pleural fluid. Dictated by: Dictated on workstation # [id number]
--- NOTE | 2019-02-04 08:50 | NUR ---
PT HAD LARGE FORMED BM ON BED ROBERTS
--- NOTE | 2019-02-04 08:57 | NUR ---
LACTIC ACID REPORTED TO DR CROFT 3.37
[2019-02-04 09:15] VITALS: BP_SYST 109; BP_SYST 62; BP_SYST 87; BP_DIAS 48; BP_DIAS 50; BP_DIAS 66
--- OUTSIDE RECORDS SUMMARY | 2019-02-04 09:56 | XMS REPORT | Continuity of Care Document ---
Author Organization Unknown Address Unknown Allergies Active Description Code Type Severity Reaction Onset Reported/Identified Relationship to Patient Clinical Status Yes promethazine [id number] Drug Allergy Unknown N/A 06/07/2006 Yes codeine [id number] Drug Allergy Unknown N/A 07/22/2006 Yes Sulfa (Sulfonamide Antibiotics) [id number] Drug Allergy Unknown N/A 2017 Medications There [...] ADI Suarez Ot 401.9 06/20/2015 PRASHANT ROBERTO, DAI Suarez Ot 414.00 06/20/2015 PRASHANT ROBERTO, ADI [...] ADI CERDA MD Ot 401.9 10/02/2015 PRASHANT ORBERTO, ADI Suarez Ot 414.00 10/02/2015 ADI CERDA [...] MD Ot I25.10 ATHSCL HEART DISEASE OF [place] CORONARY 10/03/2015 DOMINICK BOYD MD Ot I48.0 PAROXYSMAL ATRIAL FIBRILLATION 10/03/2015 DOMINICK BOYD MD Ot J01.00 ACUTE MAXILLARY SINUSITIS, UNSPECIFIED 10/03/2015 DOMINICK BOYD MD Ot J40 BRONCHITIS, NOT SPECIFIED ACUTE OR CH 10/03/2015 DOMINICK BOYD MD Ot J98.09 OTHER DISEASES OF [place], NOT ELSEWHER 10/03/2015 DOMINICK BOYD MD Ot Z79.01 CUPROUS CHLORIDE OPERATOR (CURRENT) USE OF ANTICOAGULANT 10/12/2015 Ot V76.12 [...] 10/12/2015 DOMINICK BOYD MD Ot V12.54 10/12/2015 DOMIINCK BOYD MD Ot V76.12 10/12/2015 SHEKHAR UMANA [...] PAC 01/26/2016 ADI CERDA MD Ot Z79.01 CARE HOME (CURRENT) USE OF ANTICOAGULANT 01/26/2016 ADI CERDA MD Ot Z79.899 OTHER CARE HOME (CURRENT) DRUG THERAPY 02/06/2016 ADI CERDA MD [...] PAC 02/06/2016 ADI CERDA MD Ot Z79.01 CARE HOME (CURRENT) USE OF ANTICOAGULANT 02/06/2016 ADI CERDA MD Ot Z79.899 OTHER CUPROUS CHLORIDE OPERATOR (CURRENT) DRUG THERAPY 07/24/2016 Ot 397.0 TRICUSPID [...] CAUSE STATUS 07/24/2016 CHANELL HORN Ot Z79.82 CARE HOME (CURRENT) USE OF ASPIRIN 07/24/2016 CHANELL HORN Ot Z79.899 OTHER CUPROUS CHLORIDE OPERATOR (CURRENT) DRUG THERAPY 07/24/2016 CHANELL HORN Ot [...] CAUSE STATUS 07/25/2016 CHANELL HORN Ot Z79.82 CARE HOME (CURRENT) USE OF ASPIRIN 07/25/2016 CHANELL HORN Ot Z79.899 OTHER CARE HOME (CURRENT) DRUG THERAPY 07/25/2016 CHANELL HORN Ot [...] STATUS 09/30/2016 BK BETANCUR APRN Ot Z79.82 CUPROUS CHLORIDE OPERATOR (CURRENT) USE OF ASPIRIN 09/30/2016 BK BETANCUR APRN Ot Z79.84 CARE HOME (CURRENT) USE OF ORAL HYPOGLYC 09/30/2016 BK BETANCUR APRN Ot Z79.899 OTHER CUPROUS CHLORIDE OPERATOR (CURRENT) DRUG THERAPY 10/02/2016 BK BETANCUR APRN [...] STATUS 10/02/2016 BK BETANCUR APRN Ot Z79.82 CUPROUS CHLORIDE OPERATOR (CURRENT) USE OF ASPIRIN 10/02/2016 BK BETANCUR APRN Ot Z79.84 CARE HOME (CURRENT) USE OF ORAL HYPOGLYC 10/02/2016 BK BETANCUR APRN Ot Z79.899 OTHER CARE HOME (CURRENT) DRUG THERAPY 10/02/2016 BK BETANCUR APRN [...] STATUS 10/02/2016 BK BETANCUR APRN Ot Z79.82 CARE HOME (CURRENT) USE OF ASPIRIN 10/02/2016 BK BETANCUR APRN Ot Z79.84 CUPROUS CHLORIDE OPERATOR (CURRENT) USE OF ORAL HYPOGLYC 10/02/2016 BK BETANCUR APRN Ot Z79.899 OTHER CARE HOME (CURRENT) DRUG THERAPY 10/17/2016 Ot V76.12 OTH [...] MD 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 10/17/2016 DOMINCIK BOYD MD Ot V12.54 PERSONAL HX OF [...] MD, Ot I25.10 ATHSCL HEART DISEASE OF [place] CORONARY 02/16/2018 JAILYN MILLER MD Ot I48.91 UNSPECIFIED ATRIAL FIBRILLATION 02/16/2018 JAILYN MILLER MD Ot R07.89 OTHER CHEST PAIN 02/16/2018 JAILYN MILLER MD Ot Z79.82 CUPROUS CHLORIDE OPERATOR (CURRENT) USE OF ASPIRIN 02/16/2018 JAILYN MILLER MD Ot Z79.84 CARE HOME (CURRENT) USE OF ORAL HYPOGLYC 02/16/2018 JAILYN [...] MD Ot I25.10 ATHSCL HEART DISEASE OF [place] CORONARY 06/17/2018 ADI CERDA MD Ot I48.91 [...] MD Ot I25.10 ATHSCL HEART DISEASE OF [place] CORONARY 06/28/2018 ADI CERDA MD Ot I48.91 UNSPECIFIED ATRIAL FIBRILLATION 06/28/2018 ADI CERDA MD Ot I49.5 SICK SINUS SYNDROME 07/04/2018 ADI CERDA MD Ot E78.5 HYPERLIPIDEMIA, UNSPECIFIED 07/04/2018 ADI CERDA MD Ot I08.1 RHEUMATIC DISORDERS OF BOTH [place] AND T 07/04/2018 ADI CERDA MD Ot I10 ESSENTIAL (PRIMARY) HYPERTENSION 07/04/2018 ADI CERDA MD Ot I25.10 ATHSCL HEART DISEASE OF [place] CORONARY 07/04/2018 ADI CERDA MD Ot I48.91 [...] MD Ot I25.10 ATHSCL HEART DISEASE OF [place] CORONARY 07/29/2018 ADI CERDA MD Ot I48.91 UNSPECIFIED ATRIAL FIBRILLATION 07/29/2018 ADI CERDA MD Ot I49.5 SICK SINUS SYNDROME 07/30/2018 NORRIS MOORE MD Ot E11.9 TYPE 2 DIABETES MELLITUS [...] HEMORRHOIDS 07/30/2018 NORRIS MOORE MD Ot Z79.84 CARE HOME (CURRENT) USE OF ORAL HYPOGLYC 07/30/2018 NORRIS [...] MD Ot I25.10 ATHSCL HEART DISEASE OF [place] CORONARY 07/31/2018 ADI CERDA MD Ot I48.91 [...] MD Ot I25.10 ATHSCL HEART DISEASE OF [place] CORONARY 08/01/2018 ADI CERDA MD Ot I48.91 UNSPECIFIED ATRIAL FIBRILLATION 08/01/2018 [...] MD Ot I25.10 ATHSCL HEART DISEASE OF [place] CORONARY 02/04/2019 PRASHANT ROBERTO, ADI Suarez Ot [...] NOS 02/04/2019 Ot 414.01 CORONARY ATHEROSCLEROSIS OF [place] CORON 02/04/2019 Ot 789.30 ABDOMINAL/ PELVIC SWELLING,MASS/LUMP UNSP 02/04/2019 Ot V81.5 SCREEN FOR NEPHROPATHY 02/04/2019 Ot V76.12 OTH SCREEN MAMMO-MALIGN NEOPLASM OF [place] 02/04/2019 Ot 397.0 TRICUSPID VALVE DISEASE 02/04/2019 [...] MD 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 02/04/2019 DOMINIKC BOYD MD Ot V12.54 PERSONAL HX OF [...] MD Ot I25.10 ATHSCL HEART DISEASE OF [place] CORONARY 02/04/2019 ADI CERDA MD Ot I48.91 [...] UMANA Ot 272.4 HYPERLIPIDEMIA NEC/NOS 02/04/2019 SHEKHAR MUANA Ot 401.9 HYPERTENSION NOS 02/04/2019 SHEKHAR UMANA Ot 414.00 CORON ATHEROSCLER NOS TYPE VESSEL, NATIV 02/04/2019 SHEKHAR UMANA Ot 427.31 ATRIAL FIBRILLATION 02/04/2019 ADI CERDA MD, Ot E78.5 HYPERLIPIDEMIA, UNSPECIFIED 02/04/2019 ADI CERDA MD, Ot I08.1 RHEUMATIC DISORDERS OF BOTH [place] AND T 02/04/2019 ADI CERDA MD Ot I10 ESSENTIAL (PRIMARY) HYPERTENSION 02/04/2019 ADI CERDA MD, Ot I25.10 ATHSCL HEART DISEASE OF [place] CORONARY 02/04/2019 ADI CERDA MD, Ot I48.91 [...] plasma calcium measurement (mass/volume) 9.5 mg/dL 8.5-10.1 Complete blood count (CBC) with automated white blood cell (WBC) differential - 02/04/19 06:10 Blood leukocytes automated count (number/volume) 11.6 10*3/uL 4.3-11.0 Blood erythrocytes automated count (number/volume) 4.17 10*6/uL 4.35-5.85 Venous blood hemoglobin measurement (mass/volume) 10.9 g/dL 11.5-16.0 Blood hematocrit (volume fraction) 32 % 35-52 Automated erythrocyte mean corpuscular volume 78 [foz_us] 80-99 Automated erythrocyte mean corpuscular hemoglobin (mass per erythrocyte) 26 pg 25-34 Automated erythrocyte mean corpuscular hemoglobin concentration measurement ( mass/volume) 34 g/dL 32-36 Automated erythrocyte distribution width ratio 15.0 % 10.0-14.5 Automated blood platelet count (count/volume) 383 10*3/uL 130-400 Automated blood platelet mean volume measurement 10.7 [foz_us] 7.4-10.4 Automated blood neutrophils/100 leukocytes 86 % 42-75 Automated blood lymphocytes/100 leukocytes 6 % 12-44 Blood monocytes/100 leukocytes 8 % 0-12 Automated blood eosinophils/100 leukocytes 0 % 0-10 Automated blood basophils/100 leukocytes 0 % 0-10 Blood neutrophils automated count (number/volume) 10.0 10*3 1.8-7.8 Blood lymphocytes automated count (number/volume) 0.7 10*3 1.0-4.0 Blood monocytes automated count (number/volume) 0.9 10*3 0.0-1.0 Automated eosinophil count 0.0 10*3/uL 0.0-0.3 Automated blood basophil count (count/volume) 0.0 10*3/uL 0.0-0.1 Blood manual differential performed detection - 02/04/19 06:10 Blood monocytes/100 leukocytes 9 % NRG Manual blood segmented neutrophils/100 leukocytes 84 % NRG Blood band neutrophils/100 leukocytes 0 % NRG Manual blood lymphocytes/100 leukocytes 7 % NRG Manual eosinophils/100 leukocytes in nose 0 % NRG Manual blood basophils/100 leukocytes 0 % NRG Blood anisocytosis detection by light microscopy SLIGHT NRG Blood ovalocytes detection by light microscopy SLIGHT NRG Blood poikilocytosis detection by light microscopy SLIGHT NRG Blood rouleaux detection by light microscopy SLIGHT NRG Blood kirstin cells detection by light microscopy SLIGHT NRG Comprehensive metabolic panel - 02/04/19 06:10 Serum or plasma sodium measurement (moles/volume) 127 mmol/L 135-145 Serum or plasma potassium measurement (moles/volume) 4.0 mmol/L 3.6-5.0 Serum or plasma chloride measurement (moles/volume) 94 mmol/L 98-107 Carbon dioxide 18 mmol/L 21-32 Serum or plasma anion gap determination (moles/volume) 15 mmol/L 5-14 Serum or plasma urea nitrogen measurement (mass/volume) 19 mg/dL 7-18 Serum or plasma creatinine measurement (mass/volume) 1.31 mg/dL 0.60-1.30 Serum or plasma urea nitrogen/creatinine mass ratio 15 NRG Serum or plasma creatinine measurement with calculation of estimated glomerular filtration rate 38 NRG Serum or plasma glucose measurement (mass/volume) 261 mg/dL 70-105 Serum or plasma calcium measurement (mass/volume) 10.0 mg/dL 8.5-10.1 Serum or plasma total bilirubin measurement (mass/volume) 0.4 mg/dL 0.1-1.0 Serum or plasma alkaline phosphatase measurement (enzymatic activity/volume) 47 U/L 40-136 Serum or plasma aspartate aminotransferase measurement (enzymatic activity/ volume) 31 U/L 5-34 Serum or plasma alanine aminotransferase measurement (enzymatic activity/volume ) 13 U/L 0-55 Serum or plasma protein measurement (mass/volume) 7.2 g/dL 6.4-8.2 Serum or plasma albumin measurement (mass/volume) 4.2 g/dL 3.2-4.5 CALCIUM CORRECTED 9.8 mg/dL 8.5-10.1 Serum or plasma C reactive protein measurement (mass/volume) - 02/04/19 06:10 Serum or plasma C reactive protein measurement (mass/volume) 0.22 mg /dL 0.00-0.50 Complete urinalysis with reflex to culture - 02/04/19 07:45 Urine color determination YELLOW NRG Urine clarity determination CLEAR NRG Urine pH measurement by test strip 8 5-9 Specific gravity of urine by test strip 1.010 1.016- 1.022 Urine protein assay by test strip, semi-quantitative 2+ NEGATIVE Urine glucose detection by automated test [...] count by microscopy (number/high power field ) RARE NRG Bacteria detection in urine sediment by light microscopy NEGATIVE NRG Squamous epithelial cells detection in urine sediment by light microscopy RARE NRG Crystals detection in urine sediment by light microscopy PRESENT NRG Casts detection in urine sediment by light microscopy PRESENT NRG Mucus detection in urine sediment by light microscopy NEGATIVE NRG Complete urinalysis with reflex to culture NO NRG Amorphous sediment detection in urine sediment by light microscopy FEW JAMES PHOSPHATE NRG Hyaline casts detection in urine sediment by light microscopy 5-10 NRG Renal epithelial cells detection in urine sediment by light microscopy NONE NRG Serum or plasma creatine kinase measurement (enzymatic activity/volume) - 02/04 08:00 Serum or plasma creatine kinase measurement (enzymatic activity/volume) 967 U/L 29-168 Blood lactic acid measurement (moles/volume) - 02/04/19 08:25 Blood lactic acid measurement (moles/volume) 3.37 mmol/L 0.50-2.00 Encounters ACCT No. Visit Date/Time Discharge Status Pt. Type Provider Facility Loc./Unit Complaint [id number] 07/29/2018 12:49:00 07/30/2018 13:05:00 DIS Inpatient NORRIS MOORE MD [facility] 4TH COLITIS [id number] 04/17/2018 10:41:00 04/17/2018 23:59:59 CLS Outpatient ADI CERDA MD [facility] CARD AF,CAD,HTN [id number] 02/16/2018 11:10:00 02/16/2018 13:38:00 DIS Emergency JAILYN MILLER MD [facility] ER CP/SOA [id number] 09/30/2016 13:57:00 09/30/2016 14:39:00 DIS Emergency BK BETANCUR APRN [facility] ER FALL/R HAND INJ [id number] 07/24/2016 13:29:00 07/24/2016 15:10:00 DIS Emergency CHANELL HORN [facility] ER L HAND RING FINGER INJ [id number] 01/25/2016 08:40:00 01/26/2016 09:50:00 DIS Outpatient ADI CERDA MD [facility] CATH CARLOS,CAD,HLP,HTN [id number] 10/02/2015 12:28:00 10/03/2015 14:32:00 DIS Inpatient DOMINICK BOYD MD [facility] 4TH R MAXILLARY SINUSITIS BRONCHITIS W/ HYPOXIA [id number] 06/20/2015 12:39:00 06/20/2015 23:59:59 CLS Outpatient SHEKHAR UMANA [facility] CARD AF,CAD [id number] 05/05/2015 10:48:00 05/05/2015 23:59:59 CLS Outpatient DOMINICK BOYD MD [facility] RAD SCREENING [id number] 12/05/2014 15:26:00 12/05/2014 20:52:00 DIS Emergency ROMAINE YAO DO [facility] ER COUGH,VOMITING,CHILLS [id number] 02/12/2014 12:10:00 02/12/2014 23:59:59 CLS Outpatient DOMINICK BOYD MD [facility] RAD CONFUSION [id number] 07/16/2013 09:39:00 07/16/2013 23:59:59 CLS Outpatient DOMINICK BOYD MD [facility] RAD SCREENING [id number] 03/12/2013 13:36:00 03/13/2013 12:30:00 DIS Inpatient ADI CERDA MD [facility] CSD CHEST PAIN [id number] 03/02/2013 07:49:00 03/02/2013 23:59:59 CLS Outpatient ADI CERDA MD [facility] RAD CAD,PPM,HTN [id number] 02/23/2013 08:31:00 02/23/2013 23:59:59 CLS Outpatient ADI CERDA MD [facility] CARD CAD,PPM,HTN [id number] 02/04/2019 09:50:00 ACT Inpatient MATT MARTINEZ DO [facility] 4TH RHABDOMYOLYSIS; ORTHOSTATIC HYPOTENSION; HYPONA- [id number] 02/04/2019 04:48:00 Document Registration [id number] 02/04/2019 04:48:00 Document Registration [id number] 02/04/2019 04:48:00 Document Registration [id number] 02/04/2019 04:48:00 Document Registration [id number] 02/04/2019 04:48:00 Document Registration [id number] 01/21/2015 09:35:00 Document Registration [id number] 12/13/2014 19:30:00 Document Registration [id number] 07/14/2012 14:34:00 Document Registration [id number] 07/10/2012 10:45:00 Document Registration [id number] 07/05/2011 11:17:00 Document Registration [id number] 04/04/2011 09:44:00 Document Registration [id number] 07/03/2010 10:12:00 Document Registration [id number] 02/15/2010 16:41:00 Document Registration [id number] 02/15/2010 13:49:00 Document Registration [id number] 02/07/2010 11:19:00 Document Registration [id number] 02/06/2010 07:50:00 Document Registration [id number] 12/01/2009 12:15:00 Document Registration [id number] 11/30/2009 16:27:00 Document Registration [id number] 06/28/2009 09:37:00 Document Registration [id number] 08/12/2008 14:12:00 Document Registration [id number] 11/22/2006 07:51:00 Document Registration [id number] 07/17/2006 08:15:00 Document Registration [id number] 07/03/2006 13:08:00 Document Registration [id number] 06/27/2006 11:41:00 Document Registration [id number] 06/20/2006 12:17:00 Document Registration [id number] 06/06/2006 10:07:00 Document Registration [id number] 04/11/2006 10:01:00 Document Registration [id number] 06/20/2015 23:07:06 ACT Document Registration
--- NOTE | 2019-02-04 10:07 | NUR ---
NOTIFIED THAT PT BEING TAKEN TO ROOM 428
--- NOTE | 2019-02-04 10:15 | NUR ---
JEREMÍAS COLEMAN Zainab admitted to room 428-1, with an admitting diagnosis of ORTHROSTATIC HYPOTENSION, HYPONATREMIA AND RHABDOMYLYSIS, on 02/04/19 from ED via BED, accompanied by STAFF. JEREMÍAS COLEMAN introduced to surroundings, call light, bed controls, phone, TV, temperature control, lights, meal times, smoking policy, visitor policy, side rail policy, bathrooms and showers. Patient Rights given to patient in the handbook. JEREMÍAS COLEMAN verbalizes understanding that [facility] is not responsible for the loss or damage to any personal effects or valuables that are kept in the patients posession during their hospitalization. The following Patient Care Plans were discussed with the PATIENT: Discharge Planning, INJURY AND KNOWLEDGE. JEREMÍAS COLEMAN verbalizes understanding of Interdisciplinary Patient Education.
[2019-02-04 10:26] VITALS: BP 115/59
[2019-02-04 11:15] VITALS: BP 115/59
[2019-02-04] MEDS: LACTATED RINGERS 1,000 ML IV SCH (11:26)
[2019-02-04] MEDS ORDERED: CALC-140 PO (11:33)
[2019-02-04] MEDS ORDERED: MERC50TA PO (11:33)
[2019-02-04] MEDS ORDERED: FLT22013 IH (11:33)
[2019-02-04] MEDS ORDERED: MULT1TAB69 PO (11:33)
[2019-02-04] MEDS ORDERED: LOPE-134 PO (11:33)
[2019-02-04] MEDS ORDERED: IPRA3AMP31 NEB (11:33)
--- NOTE | 2019-02-04 11:36 | NUR ---
UPDATED MED REC WITH PHYSICIAN'S ORDERS FROM [facility]
[2019-02-04 12:00] VITALS: BP 108/62
--- NOTE | 2019-02-04 12:53 | History & Physical-Hospitalist ---
History of Present Illness HPI/Chief Complaint Chief complaint: Fall and found down HPI: This is a elderly white female assisted living pt of Dr. Serna who has mild dementia along with atrial fibrillation and cardiac problems who presented to the ER after found down after an undetermined amount of time on assisted living floor. Her found her. She is found to have Rhabdomyolysis and acute renal insufficiency of creatinine of 1.3 and having significant mobility problems. She has been placed on the medical surgical floor and consulting Dr. Armstrong her head of digital and will review her home medications. She denies any pain. Lactic acid was elevated to to Rhabdomyolysis and acute illness with dehydration. Pt will be supported with IV fluids and close monitoring. PT and OT have been consulted. Source: patient Exam Limitations: other (dementia) Date Seen 02/04/19 Time Seen by a Provider: 12:45 Attending Physician Sunshine Vigil DO PCP Alexis Serna MD Referring Physician Date of Admission Feb 04, 2019 at 09:50 Home Medications & Allergies Home Medications Reviewed patient Home Medication Reconciliation performed by pharmacy medication reconciliations morgue technician and/or nursing. Patients Allergies have been reviewed. 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) Alcohol Use: Denies Use Alcohol Beverage of Choice: Wine Recreational Drug Use: No Smoking Status: Never a Smoker Physical Abuse Screen: No Sexual Abuse: No Recent Foreign Travel: No Contact w/other who traveled: No Recent Hopitalizations: No Recent Infectious Disease Expo: No Immunizations Up To Date Tetanus Booster (TDap): Unknown Pediatric: Yes Date of Pneumonia Vaccine: Jan 24, 2013 Date of Influenza Vaccine: Jun 25, 2018 Seasonal Allergies Seasonal Allergies: No Past Medical History Surgeries: Adenoidectomy, Appendectomy, Cardiac, CABG, Hysterectomy, Orthopedic , Pacemaker, Tonsillectomy Currently Using CPAP: No Currently Using BIPAP: No Cardiac: Atrial Fibrillation, Coronary Artery Disease, Hypertension Neurological: Dementia, Parkinson's Disease : No Reproductive: No Sexually Transmitted Disease: No HIV/AIDS: No Female 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: Denies Hysterectomy Gastrointestinal: Colitis Musculoskeletal: Arthritis Endocrine: Diabetes, Non-Insulin dep HEENT: Cataract Loss of Vision: Denies Hearing Impairment: Hard of Hearing Cancer: Skin Psychosocial: Anxiety, Depression History of Blood Disorders: No Family History Reviewed Nursing Family Hx Cardiovascular disease 19 FATHER, , Age:90, Onset:Unknown 19 MOTHER, , Age:86, Onset:Unknown Completed stroke 19 FATHER, , Age:90, Onset:Unknown 19 MOTHER, , Age:86, Onset:Unknown No Family History of: AIDS Abdominal aortic aneurysm [place]'s disease Alcoholism Alzheimer's disease Aphasia Arthritis Asthma Cancer of mouth Cataracts Colon cancer Congenital disease Congenital heart disease Coronary thrombosis Cystic fibrosis Deafness or hearing loss Dementia Diabetes mellitus Drug abuse Dysphasia Fibrocystic disease of breast Gastroenteritis Glaucoma Headache disorder Hypercholesterolemia Hypertension Infertility Kidney disease Myocardial infarction Neoplasm Not obtainable due to adoption Osteoporosis Parkinson's disease Prostate cancer Psychosocial problem Respiratory disorder Seizure disorder Severe allergy Thyroid disease Tuberculosis Visual disorder Heart Disease, Hypertension, Stroke Review of Systems Constitutional: see HPI, weakness EENTM: no symptoms reported Respiratory: no symptoms reported Cardiovascular: no symptoms reported Gastrointestinal: loss of appetite Genitourinary: no symptoms reported Musculoskeletal: back pain, joint pain Skin: no symptoms reported Psychiatric/Neurological: No Symptoms Reported All Other Systems Reviewed Negative Unless Noted: Yes Physical Exam Physical Exam Vital Signs Vital Signs - First Documented 02/04/19 02/04/19 05:59 10:26 Temp 97.9 Pulse 79 Resp 20 B/P (MAP) 100/59 (73) Pulse Ox 96 O2 Delivery Nasal Cannula O2 Flow Rate 2.00 Capillary Refill : Less Than 3 Seconds Height, Weight, BMI Height: 5'5.00" Weight: 170lbs. 2.0oz. 77.660441ar; 28.3 BMI Method:Stated General Appearance: No Apparent Distress, WD/WN, Chronically ill Eyes: Right Eye Normal Inspection, Right Eye PERRL HEENT: PERRL/EOMI, Normal ENT Inspection, Pharynx Normal, Moist Mucous Membranes Neck: Full Range of Motion, Normal Inspection, Non Tender Respiratory: Chest Non Tender, Lungs Clear, Normal Breath Sounds, No Accessory Muscle Use, No Respiratory Distress Cardiovascular: No Edema, No Gallop, No JVD, Normal Peripheral Pulses, Systolic Murmur, Irregularly Irregular Gastrointestinal: Normal Bowel Sounds, No Organomegaly, No Pulsatile Mass, Non Tender, Soft Back: Normal Inspection, No CVA Tenderness, No Vertebral Tenderness Extremity: Normal Capillary Refill, Normal Inspection, Normal Range of Motion, Non Tender, No Calf Tenderness, No Pedal Edema Neurologic/Psychiatric: Alert, Oriented x3, No Motor/Sensory Deficits, Normal Mood/Affect, Disoriented Skin: Normal Color, Warm/Dry Lymphatic: No Adenopathy Results Results/Procedures Labs Laboratory Tests 02/04/19 06:10 Patient resulted labs reviewed. Assessment/Plan Admission Diagnosis (1) Rhabdomyolysis Status: Acute Qualifiers: Rhabdomyolysis type: traumatic Encounter type: initial encounter Qualified Codes: T79.6XXA - Traumatic ischemia of muscle, initial encounter (2) Elevated lactic acid level Status: Acute (3) Hyponatremia Status: Acute (4) Orthostatic hypotension Status: Acute (5) CAD (coronary artery disease) Status: Acute Qualifiers: Coronary Disease-Associated Artery/Lesion type: [place] artery [place] vs. transplanted heart: [place] heart Associated angina: without angina Qualified Codes: I25.10 - Atherosclerotic heart disease of [place] coronary artery without angina pectoris (6) Atrial fibrillation Status: Chronic Qualifiers: Atrial fibrillation type: chronic Qualified Codes: I48.2 - Chronic atrial fibrillation (7) Renal insufficiency Status: Acute (8) Anemia Status: Chronic Qualifiers: Anemia type: unspecified type Qualified Codes: D64.9 - Anemia, unspecified (9) Dementia Status: Chronic Qualifiers: Dementia type: Alzheimer's disease Alzheimer's disease onset: unspecified onset Dementia behavioral disturbance: without behavioral disturbance Qualified Codes: G30.9 - Alzheimer's disease, unspecified; F02.80 - Dementia in other diseases classified elsewhere without behavioral disturbance (10) Frailty Status: Chronic Admission Status: Inpatient Order (span 2 midnights) Reason for Inpatient Admission: ARF with rhabdo requires 3 days inpatient Diagnosis/Problems Diagnosis/Problems (1) Rhabdomyolysis Status: Acute Qualifiers: Rhabdomyolysis type: traumatic Encounter type: initial encounter Qualified Codes: T79.6XXA - Traumatic ischemia of muscle, initial encounter (2) Elevated lactic acid level Status: Acute (3) Hyponatremia Status: Acute (4) Orthostatic hypotension Status: Acute (5) CAD (coronary artery disease) Status: Acute Qualifiers: Coronary Disease-Associated Artery/Lesion type: [place] artery [place] vs. transplanted heart: [place] heart Associated angina: without angina Qualified Codes: I25.10 - Atherosclerotic heart disease of [place] coronary artery without angina pectoris (6) Atrial fibrillation Status: Chronic Qualifiers: Atrial fibrillation type: chronic Qualified Codes: I48.2 - Chronic atrial fibrillation (7) Renal insufficiency Status: Acute (8) Anemia Status: Chronic Qualifiers: Anemia type: unspecified type Qualified Codes: D64.9 - Anemia, unspecified (9) Dementia Status: Chronic Qualifiers: Dementia type: Alzheimer's disease Alzheimer's disease onset: unspecified onset Dementia behavioral disturbance: without behavioral disturbance Qualified Codes: G30.9 - Alzheimer's disease, unspecified; F02.80 - Dementia in other diseases classified elsewhere without behavioral disturbance (10) Frailty Status: Chronic Clinical Quality Measures DVT/VTE Risk/Contraindication: Risk Factor Score Per Nursin RFS Level Per Nursing on Admit: 4+=Very High SUNSHINE VIGIL DO Feb 04, 2019 12:53
[2019-02-04] MEDS: ONDANSETRON 4 MG/2 ML (SDV) Z0FRAN IVP PRN ×2 (13:32→20:24)
--- NOTE | 2019-02-04 15:42 | Consultation-Cardiology ---
HPI-Cardiology Cardiology Consultation Date of Consultation 02/04/19 Date of Admission Time Seen by Provider: 15:37 Indication: sick sinus syndrome HPI 88 years old lady with history of coronary artery disease, sick sinus syndrome, permanent pacemaker, found by her on the floor in the morning, she has underlying dementia does not recall passing out or falling. Was seen at bedside , sitting comfortably, denied any active pain. No palpitation, no syncope was reported. Home Medications & Allergies Allergies: Coded Allergies: Sulfa (Sulfonamide Antibiotics) (Verified Allergy, Unknown, 07/29/18) Home Medication List Reviewed: Yes NJM-Pazceg-Zjrgdi Hx Patient Social History Marital Status: Employed/Student: retired Alcohol Use: Denies Use Recreational Drug Use: No Smoking Status: Never a Smoker Recent Foreign Travel: No Recent Infectious Disease Expo: No Recent Hopitalizations: No Physical Abuse Screen: No Sexual Abuse: No Immunizations Up To Date Tetanus Booster (TDap): Unknown Date of Pneumonia Vaccine: Jan 24, 2013 Date of Influenza Vaccine: Jun 25, 2018 Past Medical History discussed below Family Medical History Significant Family History: Heart Disease, Hypertension, Stroke Family History: Cardiovascular disease 19 FATHER, , Age:90, Onset:Unknown 19 MOTHER, , Age:86, Onset:Unknown Completed stroke 19 FATHER, , Age:90, Onset:Unknown 19 MOTHER, , Age:86, Onset:Unknown No Family History of: AIDS Abdominal aortic aneurysm [place]'s disease Alcoholism Alzheimer's disease Aphasia Arthritis Asthma Cancer of mouth Cataracts Colon cancer Congenital disease Congenital heart disease Coronary thrombosis Cystic fibrosis Deafness or hearing loss Dementia Diabetes mellitus Drug abuse Dysphasia Fibrocystic disease of breast Gastroenteritis Glaucoma Headache disorder Hypercholesterolemia Hypertension Infertility Kidney disease Myocardial infarction Neoplasm Not obtainable due to adoption Osteoporosis Parkinson's disease Prostate cancer Psychosocial problem Respiratory disorder Seizure disorder Severe allergy Thyroid disease Tuberculosis Visual disorder Review of Systems Constitutional: see HPI, malaise, weakness EENTM: see HPI, no symptoms reported Respiratory: see HPI; No cough; dyspnea on exertion; No hemoptysis, No orthopnea, No phlegm, No short of breath, No stridor, No wheezing, No other Cardiovascular: see HPI; No chest pain; edema; No Hx of Intervention, No palpitations, No syncope, No vascular heart diseas, No other Gastrointestinal: no symptoms reported, see HPI Genitourinary: see HPI Musculoskeletal: see HPI, back pain, joint pain, muscle weakness Skin: no symptoms reported, see HPI Psychiatric/Neurological: No Symptoms Reported, See HPI Reviewed Test Results Reviewed Test Results Lab Laboratory Tests Test 02/04/19 06:10 02/04/19 07:45 02/04/19 08:00 02/04/19 08:25 Range/Units White Blood Count 11.6 H 4.3-11.0 10^3/uL Red Blood Count 4.17 L 4.35-5.85 10^6/uL Hemoglobin 10.9 L 11.5-16.0 G/DL Hematocrit 32 L 35-52 % Mean Corpuscular Volume 78 L 80-99 FL Mean Corpuscular Hemoglobin 26 25-34 PG Mean Corpuscular Hemoglobin Concent 34 32-36 G/DL Red Cell Distribution Width 15.0 H 10.0-14.5 % Platelet Count 383 130-400 10^3/uL Mean Platelet Volume 10.7 H 7.4-10.4 FL Neutrophils (%) (Auto) 86 H 42-75 % Lymphocytes (%) (Auto) 6 L 12-44 % Monocytes (%) (Auto) 8 0-12 % Eosinophils (%) (Auto) 0 0-10 % Basophils (%) (Auto) 0 0-10 % Neutrophils # (Auto) 10.0 H 1.8-7.8 X 10^3 Lymphocytes # (Auto) 0.7 L 1.0-4.0 X 10^3 Monocytes # (Auto) 0.9 0.0-1.0 X 10^3 Eosinophils # (Auto) 0.0 0.0-0.3 10^3/uL Basophils # (Auto) 0.0 0.0-0.1 10^3/uL Neutrophils % (Manual) 84 % Lymphocytes % (Manual) 7 % Monocytes % (Manual) 9 % Eosinophils % (Manual) 0 % Basophils % (Manual) 0 % Band Neutrophils 0 % Poikilocytosis SLIGHT Anisocytosis SLIGHT Crenated Cell SLIGHT Elliptocytes SLIGHT Rouleau SLIGHT Sodium Level 127 L 135-145 MMOL/L Potassium Level 4.0 3.6-5.0 MMOL/L Chloride Level 94 L 98-107 MMOL/L Carbon Dioxide Level 18 L 21-32 MMOL/L Anion Gap 15 H 5-14 MMOL/L Blood Urea Nitrogen 19 H 7-18 MG/DL Creatinine 1.31 H 0.60-1.30 MG/DL Estimat Glomerular Filtration Rate 38 BUN/Creatinine Ratio 15 Glucose Level 261 H 70-105 MG/DL Calcium Level 10.0 8.5-10.1 MG/DL Corrected Calcium 9.8 8.5-10.1 MG/DL Total Bilirubin 0.4 0.1-1.0 MG/DL Aspartate Amino Transf (AST/SGOT) 31 5-34 U/L Alanine Aminotransferase (ALT/SGPT) 13 0-55 U/L Alkaline Phosphatase 47 40-136 U/L C-Reactive Protein High Sensitivity 0.22 0.00-0.50 MG/DL Total Protein 7.2 6.4-8.2 GM/DL Albumin 4.2 3.2-4.5 GM/DL Urine Color YELLOW Urine Clarity CLEAR Urine pH 8 5-9 Urine Specific [place] 1.010 L 1.016-1.022 Urine Protein 2+ H NEGATIVE Urine Glucose (UA) NEGATIVE NEGATIVE Urine Ketones NEGATIVE NEGATIVE Urine Nitrite NEGATIVE NEGATIVE Urine Bilirubin NEGATIVE NEGATIVE Urine Urobilinogen NORMAL NORMAL MG/DL Urine Leukocyte Esterase NEGATIVE NEGATIVE Urine RBC (Auto) NEGATIVE NEGATIVE Urine RBC NONE /HPF Urine WBC RARE /HPF Urine Squamous Epithelial Cells RARE /HPF Urine Renal Epithelial Cells NONE /HPF Urine Crystals PRESENT H /LPF Urine Amorphous Sediment FEW JAMES PHOSPHATE H /LPF Urine Bacteria NEGATIVE /HPF Urine Casts PRESENT /LPF Urine Hyaline Casts 5-10 H /LPF Urine Mucus NEGATIVE /LPF Urine Culture Indicated NO Total Creatine Kinase 967 H 29-168 U/L Lactic Acid Level 3.37 *H 0.50-2.00 MMOL/L Test 02/04/19 10:30 Range/Units Lactic Acid Level 2.94 *H 0.50-2.00 MMOL/L Physical Exam Vital Signs Vital Signs - First Documented 02/04/19 02/04/19 05:59 10:26 Temp 97.9 Pulse 79 Resp 20 B/P (MAP) 100/59 (73) Pulse Ox 96 O2 Delivery Nasal Cannula O2 Flow Rate 2.00 Capillary Refill : Less Than 3 Seconds Height, Weight, BMI Height: 5'5.00" Weight: 170lbs. 2.0oz. 77.754037jf; 28.3 BMI Method:Stated General Appearance: No Apparent Distress, WD/WN Eyes: Bilateral Eye Normal Inspection, Bilateral Eye PERRL, Bilateral Eye EOMI HEENT: PERRL/EOMI, TMs Normal, Normal ENT Inspection, Pharynx Normal Neck: Full Range of Motion, Normal Inspection, Non Tender, Supple, Carotid Bruit Respiratory: Chest Non Tender, Lungs Clear, Normal Breath Sounds, No Accessory Muscle Use, No Respiratory Distress Cardiovascular: Regular Rate, Rhythm, No Gallop, No JVD, Normal Peripheral Pulses, Systolic Murmur Gastrointestinal: Normal Bowel Sounds, No Organomegaly, No Pulsatile Mass, Non Tender, Soft Back: Normal Inspection, No CVA Tenderness, No Vertebral Tenderness Extremity: Normal Capillary Refill, Normal Inspection, Normal Range of Motion, Non Tender, No Calf Tenderness, Pedal Edema (+2 pedal edema) Neurologic/Psychiatric: Alert, Oriented x3, No Motor/Sensory Deficits, Normal Mood/Affect Skin: Normal Color, Warm/Dry Lymphatic: No Adenopathy A/P-Cardiology Admission Diagnosis Rhabdomyolysis Acute renal failure Coronary artery disease Sick sinus syndrome Assessment/Plan Rhabdomyolysis status post fall. Receiving IV fluid. Does not recall syncopal episode. Has underlying Parkinson and dementia. Continue to monitor electrolytes Acute on chronic renal insufficiency, receiving IV fluids, monitor renal function Coronary artery disease, status post CABG 2003 with most recent stress test February 2013. She continues to be asymptomatic. 2-D echocardiogram done May 2015 revealed normal left ventricular size with EF 60 percent. Continue to monitor Parkinson disease, progressive weakness. Followed and managed by primary care physician Hypertension, restart home medication monitor blood pressure Hyperlipidemia, continue to monitor lipids Sick sinus syndrome, status post permanent pacemaker placement. Status post pacemaker generator replacement device for dual-chamber on January 25, 2016 pacemaker checkup was done in January 2018 showing good sensing and capture activity, she is currently in persistent atrial fibrillation, evaluate 12-lead EKG Chronic persistent atrial fibrillation with chronic coumadinization. Maintained on Eliquis, was on 5 mg daily, hold for now and evaluate for any bleed then we can restart at 2.5 mg twice daily if no active bleeding was noted History Crohn's disease with rectal ulcer, currently stable. Continue to monitor, followed and managed by primary care physician Mild bilateral nonobstructive carotid artery stenosis-most recent carotid duplex August 2017, continue to monitor Clinical Quality Measures DVT/VTE Risk/Contraindication: Risk Factor Score Per Nursin RFS Level Per Nursing on Admit: 4+=Very High ADI CERDA MD Feb 04, 2019 15:41
[2019-02-04] MEDS ORDERED: CATHETER FLUSH 10 ML SYR IV PRN (16:00)
[2019-02-04 16:10] VITALS: BP 121/85
[2019-02-04] MEDS ORDERED: ACETAMINOPHEN 325 MG TABLET ONE (16:40)
[2019-02-04] MEDS ORDERED: NON-FORMULARY MEDICATION 1 EA EA (Loperamide HCl (Imodium A-D) 2 MG) PO PRN (16:45)
[2019-02-04] MEDS ORDERED: RT-ALBUTEROL/IPRATROPIUM 3 ML (DUONEB) VIAL IH PRN (16:45)
[2019-02-04] MEDS ORDERED: FLUTICASONE PROPIONATE IH PRN (16:45)
[2019-02-04] MEDS: ACETAMINOPHEN 325 MG TABLET PO PRN (16:46)
[2019-02-04] MEDS ORDERED: RT-FLUTICASONE 220 MCG (FLOVENT) PER PUFF INH PRN (17:00)
[2019-02-04] MEDS ORDERED: LOPERAMIDE 2 MG (IMODIUM) CAP PO PRN (17:00)
[2019-02-04] MEDS: GLYCOPYRROLATE 1 MG PO SCH (19:55)
[2019-02-04] MEDS: LUBIPROSTONE 8 MCG (AMITIZA) CAPSULE NON-FORMULARY PO SCH (19:55)
[2019-02-04] MEDS: PRAMIPEXOLE 0.5 MG TAB (MIRAPEX) PO SCH (19:55)
[2019-02-04 20:59] VITALS: BP 119/64
[2019-02-04] MEDS ORDERED: NON-FORMULARY MEDICATION 1 EA EA (Pramipexole Di-HCl (Pramipexole Dihydrochloride) 1.5 MG) PO SCH (21:00)
[2019-02-04] MEDS ORDERED: GLYCOPYRROLATE 2 MG PO SCH (21:00)
[2019-02-04] MEDS ORDERED: BALSALAZIDE DISODIUM 1500 MG PO SCH (21:00)
[2019-02-04] MEDS ORDERED: LUBIPROSTONE 8 MCG PO SCH (21:00)
[2019-02-05] MEDS: LACTATED RINGERS 1,000 ML IV SCH (00:18)
[2019-02-05 00:47] VITALS: BP 124/58
[2019-02-05 04:00] VITALS: BP 144/70
[2019-02-05 04:34] LABS: BASOPHILS % (AUTO) 0 % (0-10); EOSINOPHILS % (AUTO) 0 % (0-10); HEMATOCRIT 29 % (35-52); HEMOGLOBIN 9.7 G/DL (11.5-16.0); LYMPHOCYTES # (AUTO) 1.1 X 10^3 (1.0-4.0); LYMPHOCYTES % (AUTO) 19 % (12-44); MEAN CORPUSCULAR HEMOGLOBIN 26 PG (25-34); MEAN CORPUSCULAR HGB CONC 33 G/DL (32-36); MEAN CORPUSCULAR VOLUME 77 FL (80-99); MEAN PLATELET VOLUME 10.8 FL (7.4-10.4); MONOCYTES # (AUTO) 0.8 X 10^3 (0.0-1.0); MONOCYTES % (AUTO) 14 % (0-12); NEUTROPHILS # (AUTO) 3.9 X 10^3 (1.8-7.8); NEUTROPHILS % (AUTO) 67 % (42-75); PLATELET COUNT 280 10^3/uL (130-400); RED CELL DISTRIBUTION WIDTH 14.8 % (10.0-14.5); WHITE BLOOD COUNT 5.8 10^3/uL (4.3-11.0)
[2019-02-05 04:56] LABS: ALANINE AMINOTRANSFERASE 24 U/L (0-55); ALBUMIN 3.4 GM/DL (3.2-4.5); ALKALINE PHOSPHATASE 40 U/L (40-136); BILIRUBIN,TOTAL 0.5 MG/DL (0.1-1.0); BUN/CREATININE RATIO 19; CALCIUM 8.9 MG/DL (8.5-10.1); CARBON DIOXIDE 21 MMOL/L (21-32); CHLORIDE 96 MMOL/L (98-107); CREATINE KINASE 2015 U/L (29-168); CREATININE SERUM 0.73 MG/DL (0.60-1.30); GFR ESTIMATED > 60; GLUCOSE 150 MG/DL (70-105); POTASSIUM 3.7 MMOL/L (3.6-5.0); SODIUM 128 MMOL/L (135-145); TOTAL PROTEIN 5.8 GM/DL (6.4-8.2)
[2019-02-05] MEDS: MULTIVIT W/MINERALS TAB (THERAGRAN M) PO SCH (06:07)
[2019-02-05 08:00] VITALS: BP 142/78
[2019-02-05] MEDS ORDERED: NON-FORMULARY MEDICATION 1 EA EA (Metoprolol Succinate (Toprol Xl) 50 MG) PO SCH (09:00)
[2019-02-05] MEDS: PANTOPRAZOLE 40 MG (PROTONIX) TAB PO SCH (09:02)
[2019-02-05] MEDS: DIGOXIN 0.125 MG (LANOXIN) TAB PO SCH (09:02)
[2019-02-05] MEDS: PRAMIPEXOLE 0.5 MG TAB (MIRAPEX) PO SCH ×3 (09:02→20:35)
[2019-02-05] MEDS: GLYCOPYRROLATE 1 MG PO SCH ×2 (09:02→20:35)
[2019-02-05] MEDS: LUBIPROSTONE 8 MCG (AMITIZA) CAPSULE NON-FORMULARY PO SCH ×2 (09:02→20:35)
[2019-02-05] MEDS: meTOproloL SUCCINATE 50 MG (TOPROL XL) TAB PO SCH (09:02)
[2019-02-05] MEDS: HYDROCHLOROTHIAZIDE 25 MG (HCTZ) TAB PO SCH (09:02)
[2019-02-05] MEDS: LOSARTAN 100 MG (COZAAR) TABLET PO SCH (09:02)
--- NOTE | 2019-02-05 09:34 | Progress Note-Hospitalist ---
Subjective HPI/CC On Admission Date Seen by Provider: Feb 05, 2019 Time Seen by Provider: 09:45 Chief complaint: Fall and found down HPI: This is a elderly white female assisted living pt of Dr. Serna who has mild dementia along with atrial fibrillation and cardiac problems who presented to the ER after found down after an undetermined amount of time on assisted living floor. Her found her. She is found to have Rhabdomyolysis and acute renal insufficiency of creatinine of 1.3 and having significant mobility problems. She has been placed on the medical surgical floor and consulting Dr. Armstrong her billing analyst and will review her home medications. She denies any pain. Lactic acid was elevated to to Rhabdomyolysis and acute illness with dehydration. Pt will be supported with IV fluids and close monitoring. PT and OT have been consulted. Subjective/Events-last exam Patient confused Baseline dementia CPK actually increased of which I'm unsure of etiology of that Changed lactated Ringer's to normal saline Reviewed other meds Reviewed labs Checking lactic acid again Review of Systems General: Fatigue Neurological: Confusion Focused Exam Lactate Level 02/04/19 08:25: Lactic Acid Level 3.37*H 02/04/19 10:30: Lactic Acid Level 2.94*H Objective Exam Vital Signs Vital Signs Date Time Temp Pulse Resp B/P (MAP) Pulse Ox O2 Delivery O2 Flow Rate FiO2 02/05/19 08:16 96 Room Air 02/05/19 08:00 97.6 74 18 142/78 (99) 02/04/19 12:00 2.00 Capillary Refill : Less Than 3 Seconds General Appearance: No Apparent Distress, WD/WN, Chronically ill HEENT: PERRL/EOMI, Normal ENT Inspection, Pharynx Normal, Moist Mucous Membranes Neck: Full Range of Motion, Normal Inspection, Non Tender Respiratory: Chest Non Tender, Lungs Clear, Normal Breath Sounds, No Accessory Muscle Use, No Respiratory Distress Cardiovascular: No Edema, No Gallop, No JVD, Normal Peripheral Pulses, Systolic Murmur, Irregularly Irregular Gastrointestinal: Normal Bowel Sounds, No Organomegaly, No Pulsatile Mass, Non Tender, Soft Back: Normal Inspection, No CVA Tenderness, No Vertebral Tenderness Extremity: Normal Capillary Refill, Normal Inspection, Normal Range of Motion, Non Tender, No Calf Tenderness, No Pedal Edema Neurologic/Psychiatric: Alert, Oriented x3, No Motor/Sensory Deficits, Normal Mood/Affect, Disoriented Skin: Normal Color, Warm/Dry Lymphatic: No Adenopathy Results/Procedures Lab Laboratory Tests 02/05/19 04:05 Patient resulted labs reviewed. Assessment/Plan Assessment and Plan Assess & Plan/Chief Complaint (1) Rhabdomyolysis Status: Acute Qualifiers: Rhabdomyolysis type: traumatic Encounter type: initial encounter Qualified Codes: T79.6XXA - Traumatic ischemia of muscle, initial encounter (2) Elevated lactic acid level Status: Acute (3) Hyponatremia Status: Acute (4) Orthostatic hypotension Status: Acute (5) CAD (coronary artery disease) Status: Acute Qualifiers: Coronary Disease-Associated Artery/Lesion type: [place] artery [place] vs. transplanted heart: [place] heart Associated angina: without angina Qualified Codes: I25.10 - Atherosclerotic heart disease of [place] coronary artery without angina pectoris (6) Atrial fibrillation Status: Chronic Qualifiers: Atrial fibrillation type: chronic Qualified Codes: I48.2 - Chronic atrial fibrillation (7) Renal insufficiency Status: Acute (8) Anemia Status: Chronic Qualifiers: Anemia type: unspecified type Qualified Codes: D64.9 - Anemia, unspecified (9) Dementia Status: Chronic Qualifiers: Dementia type: Alzheimer's disease Alzheimer's disease onset: unspecified onset Dementia behavioral disturbance: without behavioral disturbance Qualified Codes: G30.9 - Alzheimer's disease, unspecified; F02.80 - Dementia in other diseases classified elsewhere without behavioral disturbance (10) Frailty Status: Chronic Plan: DC cath PT/OT Fall risk Confusion is baseline Diagnosis/Problems Diagnosis/Problems (1) Rhabdomyolysis Status: Acute Qualifiers: Rhabdomyolysis type: traumatic Encounter type: initial encounter Qualified Codes: T79.6XXA - Traumatic ischemia of muscle, initial encounter (2) Elevated lactic acid level Status: Acute (3) Hyponatremia Status: Acute (4) Orthostatic hypotension Status: Acute (5) CAD (coronary artery disease) Status: Acute Qualifiers: Coronary Disease-Associated Artery/Lesion type: [place] artery [place] vs. transplanted heart: [place] heart Associated angina: without angina Qualified Codes: I25.10 - Atherosclerotic heart disease of [place] coronary artery without angina pectoris (6) Atrial fibrillation Status: Chronic Qualifiers: Atrial fibrillation type: chronic Qualified Codes: I48.2 - Chronic atrial fibrillation (7) Renal insufficiency Status: Acute (8) Anemia Status: Chronic Qualifiers: Anemia type: unspecified type Qualified Codes: D64.9 - Anemia, unspecified (9) Dementia Status: Chronic Qualifiers: Dementia type: Alzheimer's disease Alzheimer's disease onset: unspecified onset Dementia behavioral disturbance: without behavioral disturbance Qualified Codes: G30.9 - Alzheimer's disease, unspecified; F02.80 - Dementia in other diseases classified elsewhere without behavioral disturbance (10) Frailty Status: Chronic Clinical Quality Measures DVT/VTE Risk/Contraindication: Risk Factor Score Per Nursin RFS Level Per Nursing on Admit: 4+=Very High MATT MARTINEZ DO Feb 05, 2019 09:34
[2019-02-05] MEDS: NS IV 1000 ML 1,000 ML IV SCH ×2 (10:09→23:09)
[2019-02-05 12:00] VITALS: BP 133/62
--- NOTE | 2019-02-05 13:38 | Cardiology Progress Note ---
Cardiology SOAP Progress Note Subjective: No obvious cardiac complaints. Objective: I&O/Vital Signs 02/05/19 02/05/19 02/05/19 02/05/19 04:00 07:00 08:00 08:00 Temp 98.1 97.6 Pulse 64 60 74 Resp 18 18 B/P (MAP) 144/70 (94) 142/78 (99) Pulse Ox 96 93 O2 Delivery Room Air Room Air Room Air 02/05/19 08:16 Pulse Ox 96 O2 Delivery Room Air 02/04/19 23:59 Intake Total 640 ml Output Total 1153 ml Balance -513 ml Weight (Pounds): 170 Weight (Ounces): 2.0 Weight (Calculated Kilograms): 77.995406 Constitutional: No appears stated age, No AAO x 3, No apparent distress, No PERRL, No well-developed, No well-nourished, No other Respiratory: No accessory muscle use, No respiratory distress, No chest tender , No chest expansion is symmetric; chest is bilaterally symmetric; No lungs clear to percussion; lungs clear to auscultation; No crackles, No rhonchi, No rales, No stridor, No wheezing, No pleural rub, No other Cardiovascular: regular rate-rhythm; No irregularly irregular, No extra beats, No parasternal heave is noted, No JVD, No edema, No bradycardia, No tachycardia , No point of maximal impulse, No cardiac thrills are palpable; S1 and S2; No gallop/S3, No gallop/S4, No diastolic murmur, No systolic murmur, No friction rub, No click, No other Gastrointestional: No tender, No soft, No round, No distended, No pulsatile mass, No organomegaly, No guarding, No rebound, No tenderness, No hernia, No mass, No audible bowel sounds, No abnormal bowel sounds, No abdominal bruits, No spleenomegaly, No other Neurologic/Psychiatric: no motor/sensory deficits, normal mood/affect Skin: No normal color, No warm/dry, No cyanosis, No cool, No diaphoresis, No damp, No ecchymosis, No jaundice, No mottled, No pallor, No rash, No tattoos/ piercings, No ulcerations, No rash on exposed areas, No ulcerations on exposed areas, No other Results/Procedures: Labs Laboratory Tests 02/05/19 04:05: White Blood Count 5.8, Red Blood Count 3.79L, Hemoglobin 9.7L, Hematocrit 29L, Mean Corpuscular Volume 77L, Mean Corpuscular Hemoglobin 26, Mean Corpuscular Hemoglobin Concent 33, Red Cell Distribution Width 14.8H, Platelet Count 280, Mean Platelet Volume 10.8H, Neutrophils (%) (Auto) 67, Lymphocytes (%) (Auto) 19 , Monocytes (%) (Auto) 14H, Eosinophils (%) (Auto) 0, Basophils (%) (Auto) 0, Neutrophils # (Auto) 3.9, Lymphocytes # (Auto) 1.1, Monocytes # (Auto) 0.8, Eosinophils # (Auto) 0.0, Basophils # (Auto) 0.0, Sodium Level 128L, Potassium Level 3.7, Chloride Level 96L, Carbon Dioxide Level 21, Anion Gap 11, Blood Urea Nitrogen 14, Creatinine 0.73, Estimat Glomerular Filtration Rate > 60, BUN/ Creatinine Ratio 19, Glucose Level 150H, Calcium Level 8.9, Corrected Calcium 9.4, Total Bilirubin 0.5, Aspartate Amino Transf (AST/SGOT) 79H, Alanine Aminotransferase (ALT/SGPT) 24, Alkaline Phosphatase 40, Total Creatine Kinase 2015#H, Total Protein 5.8L, Albumin 3.4 02/05/19 11:00: Lactic Acid Level 2.59*H 02/05/19 13:14: A/P: Assessment/Dx: Rhabdomyolysis Acute renal failure Coronary artery disease Sick sinus syndrome Plan: Rhabdomyolysis status post fall. Receiving IV fluid. Does not recall syncopal episode. Has underlying Parkinson and dementia. Continue to monitor electrolytes Acute on chronic renal insufficiency, receiving IV fluids, monitor renal function Coronary artery disease, status post CABG 2003 with most recent stress test February 2013. She continues to be asymptomatic. 2-D echocardiogram done May 2015 revealed normal left ventricular size with EF 60 percent. Continue to monitor Parkinson disease, progressive weakness. Followed and managed by primary care physician Hypertension, restart home medication monitor blood pressure Hyperlipidemia, continue to monitor lipids Sick sinus syndrome, status post permanent pacemaker placement. Status post pacemaker generator replacement device for dual-chamber on January 25, 2016 pacemaker checkup was done in January 2018 showing good sensing and capture activity, she is currently in persistent atrial fibrillation, evaluate 12-lead EKG Chronic persistent atrial fibrillation with chronic coumadinization. Maintained on Eliquis, was on 5 mg daily, hold for now and evaluate for any bleed then we can restart at 2.5 mg twice daily if no active bleeding was noted History Crohn's disease with rectal ulcer, currently stable. Continue to monitor, followed and managed by primary care physician Mild bilateral nonobstructive carotid artery stenosis-most recent carotid duplex August 2017, continue to monitor Thank you for your consultation. Please call me if you have any questions. Phyllis Sinha MD, FACP, FACC, FSCAI, FHRS, CCDS Interventional Cardiology Cardiac Electrophysiology Vascular Medicine and Endovascular Interventions Focused Exam Lactate Level 02/04/19 10:30: Lactic Acid Level 2.94*H 02/05/19 11:00: Lactic Acid Level 2.59*H 02/05/19 13:14: Lactic Acid Level Laboratory Tests Test 02/05/19 11:00 02/05/19 13:14 Lactic Acid Level 2.59 MMOL/L (0.50-2.00) *Zainab OROURKE MD Feb 05, 2019 13:38
--- NOTE | 2019-02-05 14:13 | NUR ---
CM/SS. Patient recently established residency with [facility] along with her spouse, Alexis Burroughs. It is anticipated she will return there when medically stable. They were moved from their home in [place], there is no knowledge of a recent Medicare skilled stay. Continue to follow for care plan and explore skilled if that becomes more appropriate to current needs. Alzheimer's dementia with increasing dependency for assistance for ADL's and safety.
[2019-02-05 15:35] VITALS: BP 148/87
[2019-02-05 19:51] VITALS: BP 154/79
[2019-02-06 00:36] VITALS: BP 172/81
[2019-02-06 04:00] VITALS: BP 163/83
[2019-02-06] MEDS: MULTIVIT W/MINERALS TAB (THERAGRAN M) PO SCH (06:09)
[2019-02-06] MEDS: ACETAMINOPHEN 325 MG TABLET PO PRN ×2 (06:39→09:47)
[2019-02-06 08:00] VITALS: BP 158/82
[2019-02-06] MEDS: GLYCOPYRROLATE 1 MG PO SCH ×2 (08:15→21:12)
[2019-02-06] MEDS: LUBIPROSTONE 8 MCG (AMITIZA) CAPSULE NON-FORMULARY PO SCH ×2 (08:16→21:12)
[2019-02-06] MEDS: LOSARTAN 100 MG (COZAAR) TABLET PO SCH (08:16)
[2019-02-06] MEDS: meTOproloL SUCCINATE 50 MG (TOPROL XL) TAB PO SCH (08:16)
[2019-02-06] MEDS: PANTOPRAZOLE 40 MG (PROTONIX) TAB PO SCH (08:16)
[2019-02-06] MEDS: PRAMIPEXOLE 0.5 MG TAB (MIRAPEX) PO SCH ×3 (08:16→21:12)
[2019-02-06] MEDS: DIGOXIN 0.125 MG (LANOXIN) TAB PO SCH (08:16)
[2019-02-06] MEDS: HYDROCHLOROTHIAZIDE 25 MG (HCTZ) TAB PO SCH (08:16)
[2019-02-06] MEDS: NS IV 1000 ML 1,000 ML IV SCH (09:47)
--- NOTE | 2019-02-06 11:50 | Progress Note-Hospitalist ---
Subjective HPI/CC On Admission Date Seen by Provider: Feb 06, 2019 Time Seen by Provider: 11:00 Chief complaint: Fall and found down HPI: This is a elderly white female assisted living pt of Dr. Serna who has mild dementia along with atrial fibrillation and cardiac problems who presented to the ER after found down after an undetermined amount of time on assisted living floor. Her found her. She is found to have Rhabdomyolysis and acute renal insufficiency of creatinine of 1.3 and having significant mobility problems. She has been placed on the medical surgical floor and consulting Dr. 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 She denies any pain. Lactic acid was elevated to to Rhabdomyolysis and acute illness with dehydration. Pt will be supported with IV fluids and close monitoring. PT and OT have been consulted. Subjective/Events-last exam at the bedside today He is worried she can't walk Therapy has been consulted from day 1 Awaiting lab results Reports hip pain but that varies Checked meds and labs Review of Systems General: Fatigue Neurological: Confusion Focused Exam Lactate Level 02/04/19 10:30: Lactic Acid Level 2.94*H 02/05/19 11:00: Lactic Acid Level 2.59*H 02/05/19 13:14: Lactic Acid Level 3.03*H Objective Exam Vital Signs Vital Signs Date Time Temp Pulse Resp B/P (MAP) Pulse Ox O2 Delivery O2 Flow Rate FiO2 02/06/19 08:00 96.1 60 18 158/82 (107) 99 Room Air 02/04/19 12:00 2.00 Capillary Refill : Less Than 3 Seconds General Appearance: No Apparent Distress, WD/WN, Chronically ill HEENT: PERRL/EOMI, Normal ENT Inspection, Pharynx Normal, Moist Mucous Membranes Neck: Full Range of Motion, Normal Inspection, Non Tender Respiratory: Chest Non Tender, Lungs Clear, Normal Breath Sounds, No Accessory Muscle Use, No Respiratory Distress Cardiovascular: No Edema, No Gallop, No JVD, Normal Peripheral Pulses, Systolic Murmur, Irregularly Irregular Gastrointestinal: Normal Bowel Sounds, No Organomegaly, No Pulsatile Mass, Non Tender, Soft Back: Normal Inspection, No CVA Tenderness, No Vertebral Tenderness Extremity: Normal Capillary Refill, Normal Inspection, Normal Range of Motion, Non Tender, No Calf Tenderness, No Pedal Edema Neurologic/Psychiatric: Alert, Oriented x3, No Motor/Sensory Deficits, Normal Mood/Affect, Disoriented Skin: Normal Color, Warm/Dry Lymphatic: No Adenopathy Results/Procedures Lab Patient resulted labs reviewed. Assessment/Plan Assessment and Plan Assess & Plan/Chief Complaint (1) Rhabdomyolysis Status: Acute Qualifiers: Rhabdomyolysis type: traumatic Encounter type: initial encounter Qualified Codes: T79.6XXA - Traumatic ischemia of muscle, initial encounter (2) Elevated lactic acid level Status: Acute (3) Hyponatremia Status: Acute (4) Orthostatic hypotension Status: Acute (5) CAD (coronary artery disease) Status: Acute Qualifiers: Coronary Disease-Associated Artery/Lesion type: [place] artery [place] vs. transplanted heart: [place] heart Associated angina: without angina Qualified Codes: I25.10 - Atherosclerotic heart disease of [place] coronary artery without angina pectoris (6) Atrial fibrillation Status: Chronic Qualifiers: Atrial fibrillation type: chronic Qualified Codes: I48.2 - Chronic atrial fibrillation (7) Renal insufficiency Status: Acute (8) Anemia Status: Chronic Qualifiers: Anemia type: unspecified type Qualified Codes: D64.9 - Anemia, unspecified (9) Dementia Status: Chronic Qualifiers: Dementia type: Alzheimer's disease Alzheimer's disease onset: unspecified onset Dementia behavioral disturbance: without behavioral disturbance Qualified Codes: G30.9 - Alzheimer's disease, unspecified; F02.80 - Dementia in other diseases classified elsewhere without behavioral disturbance (10) Frailty Status: Chronic Plan: PT/OT Fall risk Confusion is baseline await lab results Disposition pending back to assisted living Diagnosis/Problems Diagnosis/Problems (1) Rhabdomyolysis Status: Acute Qualifiers: Rhabdomyolysis type: traumatic Encounter type: initial encounter Qualified Codes: T79.6XXA - Traumatic ischemia of muscle, initial encounter (2) Elevated lactic acid level Status: Acute (3) Hyponatremia Status: Acute (4) Orthostatic hypotension Status: Acute (5) CAD (coronary artery disease) Status: Acute Qualifiers: Coronary Disease-Associated Artery/Lesion type: [place] artery [place] vs. transplanted heart: [place] heart Associated angina: without angina Qualified Codes: I25.10 - Atherosclerotic heart disease of [place] coronary artery without angina pectoris (6) Atrial fibrillation Status: Chronic Qualifiers: Atrial fibrillation type: chronic Qualified Codes: I48.2 - Chronic atrial fibrillation (7) Renal insufficiency Status: Acute (8) Anemia Status: Chronic Qualifiers: Anemia type: unspecified type Qualified Codes: D64.9 - Anemia, unspecified (9) Dementia Status: Chronic Qualifiers: Dementia type: Alzheimer's disease Alzheimer's disease onset: unspecified onset Dementia behavioral disturbance: without behavioral disturbance Qualified Codes: G30.9 - Alzheimer's disease, unspecified; F02.80 - Dementia in other diseases classified elsewhere without behavioral disturbance (10) Frailty Status: Chronic (11) Parkinsonism Status: Chronic Qualifiers: Parkinsonism type: Parkinson's disease Qualified Codes: G20 - Parkinson's disease Clinical Quality Measures DVT/VTE Risk/Contraindication: Risk Factor Score Per Nursin RFS Level Per Nursing on Admit: 4+=Very High MATT MARTINEZ DO Feb 06, 2019 11:50
[2019-02-06 12:00] VITALS: BP 133/83
[2019-02-06 12:42] LABS: ALANINE AMINOTRANSFERASE 30 U/L (0-55); ALBUMIN 3.4 GM/DL (3.2-4.5); ALKALINE PHOSPHATASE 37 U/L (40-136); BILIRUBIN,TOTAL 0.5 MG/DL (0.1-1.0); BUN/CREATININE RATIO 14; CALCIUM 8.3 MG/DL (8.5-10.1); CARBON DIOXIDE 19 MMOL/L (21-32); CHLORIDE 93 MMOL/L (98-107); CREATINE KINASE 1002 U/L (29-168); GFR ESTIMATED > 60; GLUCOSE 183 MG/DL (70-105); POTASSIUM 3.4 MMOL/L (3.6-5.0); TOTAL PROTEIN 5.9 GM/DL (6.4-8.2)
[2019-02-06 13:01] LABS: SODIUM 122 MMOL/L (135-145)
--- NOTE | 2019-02-06 15:10 | Physical Therapy Evaluation ---
PT Evaluation-General Medical Diagnosis Admission Date Feb 04, 2019 at 09:50 Medical Diagnosis: rhabdomyolisis Onset Date: Feb 04, 2019 Therapy Diagnosis Therapy Diagnosis: impaired mobility, strength, endurance Height/Weight Height (Feet): 5 Height (Inches): 5.00 Weight (Pounds): 170 Weight (Ounces): 2.0 Precautions Precautions/Isolations: Fall Prevention, Standard Precautions Referral Physician: Sunshine Vigil DO Reason for Referral: Evaluation/Treatment Medical History Additional Medical History Past Medical History Surgeries: Adenoidectomy, Appendectomy, Cardiac, CABG, Hysterectomy, Orthopedic , Pacemaker, Tonsillectomy Currently Using CPAP: No Currently Using BIPAP: No Cardiac: Atrial Fibrillation, Coronary Artery Disease, Hypertension Neurological: Dementia, Parkinson's Disease : No Reproductive: No Sexually Transmitted Disease: No HIV/AIDS: No Female 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: Denies Hysterectomy Gastrointestinal: Colitis Musculoskeletal: Arthritis Endocrine: Diabetes, Non-Insulin dep HEENT: Cataract Loss of Vision: Denies Hearing Impairment: Hard of Hearing Cancer: Skin Psychosocial: Anxiety, Depression Current History Patient went to ER after being found on floor in assisted living Reviewed History: Yes Social History Home: Assisted Living Current Living Status: Spouse Prior/Core FIM Prior Level of Function Therapy Code Descriptions/Definitions Functional [place] Measure: 0=Not Assessed/NA 4=Minimal Assistance 1=Total Assistance 5=Supervision or Setup 2=Maximal Assistance 6=Modified [place] 3=Moderate Assistance 7=Complete [place] Therapy Quality Codes: 6 Independent with activity with or without an assistive device 5 Patient requires set up or clean up by helper. Patient completes activity by themselves 4 Supervision or touching assist (CGA). [place] provide cues , steadying assist 3 The helper provides less than half the effort to complete the activity 2 The helper provides more than half the effort to complete the activity 1 Dependent. The helper does all the effort to complete an activity 7 Patient refused to complete or attempt activity 9 The patient did not perform the activity before the current illness or injury 88 Not attempted due to Medical conditions or safety concerns Functional Abilities and Goals: Independent: Patient completed the activities by him/herself, with or without an assistive device, with no assistance from a helper. Needed Some Help: Patient needed partial assistance from another person to complete activities. Dependent: A helper completed the activities for the patient. Unknown: Not Applicable: Unknown, but patient states she was using a walker previously. PT Evaluation-Current Subjective Patient in recliner pre tx, agrees to PT, no complaints of pain. Pt/Family Goals "to be able to go back home" Objective Patient Orientation: Person, Confused ROM/Strength ROM Lower Extremities WNL Strength Lower Extremities 4/5 gross bilateral lower extremities except for hip flexion 3+/5 bilaterally. Neuromuscular (Tone, Coordination, Reflexes) NT Sensory Vision: Wears Glasses Hearing: Functional Sensation Right Lower Extremit: Intact Sensation Left Lower Extremity: Intact Transfers Therapy Code Descriptions/Definitions Functional [place] Measure: 0=Not Assessed/NA 4=Minimal Assistance 1=Total Assistance 5=Supervision or Setup 2=Maximal Assistance 6=Modified [place] 3=Moderate Assistance 7=Complete [place] Transfers (B, C, W/C) (FIM): 4 Sit to/from Stand: 4 Patient needs min assist to stand, cues for hand placement and positioning. Gait Mode of Locomotion: Walk Anticipated Mode of Locomotion: Walk Gait (FIM): 1 Distance: 12' Gait Level of Assist: 4 Gait Persons Needed: 1 Gait Assistive Device: FWW Comments/Gait Description Patient ambulated from the recliner, around the bed to the other side and then sat on a bedside commode. Patient ambulates slowly and needs a little assist to help guide the walker. She has a very slumped posture. Patient on commode and give nurse call and nurse notified she is on the commode. Balance Sitting Static: Normal Sitting Dynamic: Normal Standing Static: Good Standing Dynamic: Good Assessment/Needs Patient has impaired mobility, strength, endurance. Slow but steady ambulation. Needs assist to stand. Rehab Potential: Fair PT Short Term Goals Short Term Goals Time Frame: Feb 13, 2019 Transfers (B,C,W/C) (FIM): 5 Gait (FIM): 2 Gait Distance Comment: 50' Gait Level of Assist: 4 Gait Assistive Device: FWW PT Plan Problem List Problem List: Activity Tolerance, Functional Strength, Safety, Balance, Gait, Transfer, Bed Mobility, ROM Treatment/Plan Treatment Plan: Continue Plan of Care Treatment Plan: Bed Mobility, Education, Functional Activity Vish, Functional Strength, Gait, Safety, Therapeutic Exercise, Transfers Treatment Duration: Feb 13, 2019 Frequency: 6 times per week Estimated Hrs Per Day: .25 hour per day (15-30') Patient and/or Family Agrees t: Yes Safety Risks/Education Patient Education: Gait Training, Transfer Techniques, Correct Positioning, Safety Issues Teaching Recipient: Patient Teaching Methods: Demonstration, Discussion Response to Teaching: Reinforcement Needed Discharge Recommendations Plan Patient will perform bed mobility and transfer training, balance and endurance training, functional strengthening, gait training, and education, to improve functional mobility and independence at home. Therapy D/C Recommendations: Assisted Living, Home w/ Family Support, Longterm (TCU/NH) Time/GCodes Time In: 1445 Time Out: 1501 Total Billed Treatment Time: 16 Total Billed Treatment 1 visit WARREN XIAO PT Feb 06, 2019 15:09
[2019-02-06 15:30] VITALS: BP 132/65
[2019-02-06 19:10] VITALS: BP 132/72
[2019-02-07 00:05] VITALS: BP 145/68
[2019-02-07 04:00] VITALS: BP 154/70
[2019-02-07 06:17] LABS: BASOPHILS % (AUTO) 1 % (0-10); EOSINOPHILS # (AUTO) 0.1 10^3/uL (0.0-0.3); EOSINOPHILS % (AUTO) 1 % (0-10); HEMATOCRIT 33 % (35-52); LYMPHOCYTES # (AUTO) 1.2 X 10^3 (1.0-4.0); LYMPHOCYTES % (AUTO) 20 % (12-44); MEAN CORPUSCULAR HEMOGLOBIN 25 PG (25-34); MEAN CORPUSCULAR HGB CONC 33 G/DL (32-36); MEAN CORPUSCULAR VOLUME 76 FL (80-99); MEAN PLATELET VOLUME 10.4 FL (7.4-10.4); MONOCYTES # (AUTO) 0.7 X 10^3 (0.0-1.0); MONOCYTES % (AUTO) 13 % (0-12); NEUTROPHILS # (AUTO) 3.8 X 10^3 (1.8-7.8); NEUTROPHILS % (AUTO) 66 % (42-75); PLATELET COUNT 312 10^3/uL (130-400); RED CELL DISTRIBUTION WIDTH 14.9 % (10.0-14.5); WHITE BLOOD COUNT 5.8 10^3/uL (4.3-11.0)
[2019-02-07] MEDS: MULTIVIT W/MINERALS TAB (THERAGRAN M) PO SCH (06:33)
[2019-02-07 06:48] LABS: ALANINE AMINOTRANSFERASE 28 U/L (0-55); ALBUMIN 3.6 GM/DL (3.2-4.5); ALKALINE PHOSPHATASE 44 U/L (40-136); BILIRUBIN,TOTAL 0.5 MG/DL (0.1-1.0); BUN/CREATININE RATIO 11; CARBON DIOXIDE 21 MMOL/L (21-32); CHLORIDE 91 MMOL/L (98-107); GFR ESTIMATED > 60; GLUCOSE 150 MG/DL (70-105); POTASSIUM 3.9 MMOL/L (3.6-5.0); TOTAL PROTEIN 6.3 GM/DL (6.4-8.2)
[2019-02-07] MEDS: ONDANSETRON 4 MG/2 ML (SDV) Z0FRAN IVP PRN (06:49)
[2019-02-07 06:50] LABS: SODIUM 123 MMOL/L (135-145)
--- NOTE | 2019-02-07 07:50 | NUR ---
PRIOR TO A.M. MEDICATIONS PULSE WAS 60BPM AND B/P WAS 173/81.
[2019-02-07 08:00] VITALS: BP 173/81
[2019-02-07] MEDS: LUBIPROSTONE 8 MCG (AMITIZA) CAPSULE NON-FORMULARY PO SCH (08:46)
[2019-02-07] MEDS: PRAMIPEXOLE 0.5 MG TAB (MIRAPEX) PO SCH ×3 (08:46→21:09)
[2019-02-07] MEDS: DIGOXIN 0.125 MG (LANOXIN) TAB PO SCH (08:46)
[2019-02-07] MEDS: PANTOPRAZOLE 40 MG (PROTONIX) TAB PO SCH (08:46)
[2019-02-07] MEDS: meTOproloL SUCCINATE 50 MG (TOPROL XL) TAB PO SCH (08:47)
[2019-02-07] MEDS: GLYCOPYRROLATE 1 MG PO SCH ×2 (08:47→21:09)
[2019-02-07] MEDS: LOSARTAN 100 MG (COZAAR) TABLET PO SCH (08:47)
--- NOTE | 2019-02-07 10:13 | Physical Therapy Daily Note ---
PT Daily Note-Current Subjective Pt agreeable to PT session Pain Numeric Pain Scale: 0-No Pain Appearance Pt sitting up in recliner with nurse present upon arrival At end of session, pt sitting up in recliner with LE's elevated, chair alarm activated, call light, phone and bedside table within reach Mental Status Patient Orientation: Person, Confused, Place, Eyes Open Transfers Therapy Code Descriptions/Definitions Functional [place] Measure: 0=Not Assessed/NA 4=Minimal Assistance 1=Total Assistance 5=Supervision or Setup 2=Maximal Assistance 6=Modified [place] 3=Moderate Assistance 7=Complete [place] Therapy Quality Codes: 6 Independent with activity with or without an assistive device 5 Patient requires set up or clean up by helper. Patient completes activity by themselves 4 Supervision or touching assist (CGA). [place] provide cues , steadying assist 3 The helper provides less than half the effort to complete the activity 2 The helper provides more than half the effort to complete the activity 1 Dependent. The helper does all the effort to complete an activity 7 Patient refused to complete or attempt activity 9 The patient did not perform the activity before the current illness or injury 88 Not attempted due to Medical conditions or safety concerns Transfers (B, C, W/C) (FIM): 4 Sit to/from Stand: 4 (CGA for safety) Pt requiring repeated verb instruction for hand placement during all transitions Gait Training Gait (FIM): 5 Distance (FIM): 3=150 ft Distance: 176 Gait Level of Assist: 5 Gait Persons Needed: 1 Gait Assistive Device: FWW very slow but steady with good step length, decreased step height. No LOB or unsteadiness Exercises Seated Therapy Exercises: Ankle pumps, Sit to stand, Long arc quads, Hip flexion, Hip abd/add Seated Reps: 10 Treatments transfer, safety, gait, functional mobility, activity tolerance, strengthening Assessment Current Status: Good Progress PT Short Term Goals Short Term Goals Time Frame: Feb 13, 2019 Transfers (B,C,W/C) (FIM): 5 Gait (FIM): 2 Gait Distance Comment: 50' Gait Level of Assist: 4 Gait Assistive Device: FWW PT Plan Treatment/Plan Treatment Plan: Continue Plan of Care Treatment Plan: Bed Mobility, Education, Functional Activity Vish, Functional Strength, Gait, Safety, Therapeutic Exercise, Transfers Treatment Duration: Feb 13, 2019 Frequency: 6 times per week Estimated Hrs Per Day: .25 hour per day (15-30') Patient and/or Family Agrees t: Yes Safety Risks/Education Patient Education: Gait Training, Transfer Techniques, Safety Issues Teaching Recipient: Patient Teaching Methods: Demonstration, Discussion Response to Teaching: Verbalize Understanding, Return Demonstration, Reinforcement Needed Time/GCodes Time In: 843 Time Out: 913 Total Billed Treatment Time: 30 Total Billed Treatment 1 visit, GT x 2 units NATANAEL ROTHMAN PTA Feb 07, 2019 10:13
--- NOTE | 2019-02-07 11:25 | Progress Note-Hospitalist ---
Subjective HPI/CC On Admission Date Seen by Provider: Feb 07, 2019 Time Seen by Provider: 10:30 Chief complaint: Fall and found down HPI: This is a elderly white female assisted living pt of Dr. Serna who has mild dementia along with atrial fibrillation and cardiac problems who presented to the ER after found down after an undetermined amount of time on assisted living floor. Her found her. She is found to have Rhabdomyolysis and acute renal insufficiency of creatinine of 1.3 and having significant mobility problems. She has been placed on the medical surgical floor and consulting Dr. 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 She denies any pain. Lactic acid was elevated to to Rhabdomyolysis and acute illness with dehydration. Pt will be supported with IV fluids and close monitoring. PT and OT have been consulted. Subjective/Events-last exam patient is sitting up in a chair and appears to be doing well. She is somewhat confused but awake and alert. Review of Systems Neurological: Weakness Focused Exam Lactate Level 02/05/19 11:00: Lactic Acid Level 2.59*H 02/05/19 13:14: Lactic Acid Level 3.03*H Objective Exam Vital Signs Vital Signs Date Time Temp Pulse Resp B/P (MAP) Pulse Ox O2 Delivery O2 Flow Rate FiO2 02/07/19 08:00 97.9 60 19 173/81 (111) 94 Room Air 02/04/19 12:00 2.00 Capillary Refill : Less Than 3 Seconds General Appearance: No Apparent Distress, WD/WN, Chronically ill HEENT: PERRL/EOMI, Normal ENT Inspection, Pharynx Normal, Moist Mucous Membranes Neck: Full Range of Motion, Normal Inspection, Non Tender Respiratory: Chest Non Tender, Lungs Clear, Normal Breath Sounds, No Accessory Muscle Use, No Respiratory Distress Cardiovascular: No Edema, No Gallop, No JVD, Normal Peripheral Pulses, Systolic Murmur, Irregularly Irregular Gastrointestinal: Normal Bowel Sounds, No Organomegaly, No Pulsatile Mass, Non Tender, Soft Back: Normal Inspection, No CVA Tenderness, No Vertebral Tenderness Extremity: Normal Capillary Refill, Normal Inspection, Normal Range of Motion, Non Tender, No Calf Tenderness, No Pedal Edema Neurologic/Psychiatric: Alert, Oriented x3, No Motor/Sensory Deficits, Normal Mood/Affect, Disoriented Skin: Normal Color, Warm/Dry Lymphatic: No Adenopathy Results/Procedures Lab Laboratory Tests 02/06/19 12:08 02/07/19 05:30 Patient resulted labs reviewed. Assessment/Plan Assessment and Plan Assess & Plan/Chief Complaint 1. Rhabdomyolysis-resolved 2. Chronic atrial fibrillation good rate control 3. Hyponatremia we'll check urine lites. Hydrochlorothiazide is being held. 4. Senile dementia Alzheimer's type with mild delirium from hospitalization 5. Anemia possibly from chronic disease. Clinical Quality Measures DVT/VTE Risk/Contraindication: Risk Factor Score Per Nursin RFS Level Per Nursing on Admit: 4+=Very High HAYES FABIAN MD Feb 07, 2019 11:25
[2019-02-07 12:00] VITALS: BP 118/59
--- NOTE | 2019-02-07 13:02 | Cardiology Progress Note ---
Cardiology SOAP Progress Note Subjective: No cardiac complaints. Objective: I&O/Vital Signs 02/07/19 02/07/19 02/07/19 02/07/19 04:00 07:00 08:00 12:00 Temp 97.6 97.9 99.7 Pulse 60 59 60 64 Resp 18 19 18 B/P (MAP) 154/70 (98) 173/81 (111) 118/59 (78) Pulse Ox 98 94 99 O2 Delivery Room Air Room Air Room Air 02/06/19 23:59 Intake Total 940 ml Output Total 250 ml Balance 690 ml Weight (Pounds): 170 Weight (Ounces): 2.0 Weight (Calculated Kilograms): 77.131851 Constitutional: No appears stated age, No AAO x 3, No apparent distress, No PERRL, No well-developed, No well-nourished, No other Respiratory: No accessory muscle use, No respiratory distress, No chest tender , No chest expansion is symmetric; chest is bilaterally symmetric; No lungs clear to percussion; lungs clear to auscultation; No crackles, No rhonchi, No rales, No stridor, No wheezing, No pleural rub, No other Cardiovascular: regular rate-rhythm; No irregularly irregular, No extra beats, No parasternal heave is noted, No JVD, No edema, No bradycardia, No tachycardia , No point of maximal impulse, No cardiac thrills are palpable; S1 and S2; No gallop/S3, No gallop/S4, No diastolic murmur, No systolic murmur, No friction rub, No click, No other Gastrointestional: No tender, No soft, No round, No distended, No pulsatile mass, No organomegaly, No guarding, No rebound, No tenderness, No hernia, No mass, No audible bowel sounds, No abnormal bowel sounds, No abdominal bruits, No spleenomegaly, No other Neurologic/Psychiatric: no motor/sensory deficits, normal mood/affect Skin: No normal color, No warm/dry, No cyanosis, No cool, No diaphoresis, No damp, No ecchymosis, No jaundice, No mottled, No pallor, No rash, No tattoos/ piercings, No ulcerations, No rash on exposed areas, No ulcerations on exposed areas, No other Results/Procedures: Labs Laboratory Tests 02/07/19 05:30: White Blood Count 5.8, Red Blood Count 4.33L, Hemoglobin 11.0L, Hematocrit 33L, Mean Corpuscular Volume 76L, Mean Corpuscular Hemoglobin 25, Mean Corpuscular Hemoglobin Concent 33, Red Cell Distribution Width 14.9H, Platelet Count 312, Mean Platelet Volume 10.4, Neutrophils (%) (Auto) 66, Lymphocytes (%) (Auto) 20 , Monocytes (%) (Auto) 13H, Eosinophils (%) (Auto) 1, Basophils (%) (Auto) 1, Neutrophils # (Auto) 3.8, Lymphocytes # (Auto) 1.2, Monocytes # (Auto) 0.7, Eosinophils # (Auto) 0.1, Basophils # (Auto) 0.0, Sodium Level 123*L, Potassium Level 3.9, Chloride Level 91L, Carbon Dioxide Level 21, Anion Gap 11, Blood Urea Nitrogen 8, Creatinine 0.70, Estimat Glomerular Filtration Rate > 60, BUN/ Creatinine Ratio 11, Glucose Level 150H, Calcium Level 9.0, Corrected Calcium 9.3, Total Bilirubin 0.5, Aspartate Amino Transf (AST/SGOT) 61H, Alanine Aminotransferase (ALT/SGPT) 28, Alkaline Phosphatase 44, Total Protein 6.3L, Albumin 3.6 Microbiology 02/04/19 Blood Culture - Preliminary, Resulted No growth A/P: Assessment/Dx: Rhabdomyolysis Acute renal failure Coronary artery disease Sick sinus syndrome Plan: Rhabdomyolysis status post fall. Receiving IV fluid. Does not recall syncopal episode. Has underlying Parkinson and dementia. Continue to monitor electrolytes Acute on chronic renal insufficiency, receiving IV fluids, monitor renal function Coronary artery disease, status post CABG 2003 with most recent stress test February 2013. She continues to be asymptomatic. 2-D echocardiogram done May 2015 revealed normal left ventricular size with EF 60 percent. Continue to monitor Parkinson disease, progressive weakness. Followed and managed by primary care physician Hypertension, restart home medication monitor blood pressure Hyperlipidemia, continue to monitor lipids Sick sinus syndrome, status post permanent pacemaker placement. Status post pacemaker generator replacement device for dual-chamber on January 25, 2016 pacemaker checkup was done in January 2018 showing good sensing and capture activity, she is currently in persistent atrial fibrillation, evaluate 12-lead EKG Chronic persistent atrial fibrillation with chronic coumadinization. Maintained on Eliquis, was on 5 mg daily, hold for now and evaluate for any bleed then we can restart at 2.5 mg twice daily if no active bleeding was noted. Defer to the primary team for advise on bleeding risk. History Crohn's disease with rectal ulcer, currently stable. Continue to monitor, followed and managed by primary care physician Mild bilateral nonobstructive carotid artery stenosis-most recent carotid duplex August 2017, continue to monitor Thank you for your consultation. Please call me if you have any questions. Phyllis Sinha MD, FACP, FACC, FSCAI, FHRS, CCDS Interventional Cardiology Cardiac Electrophysiology Vascular Medicine and Endovascular Interventions Focused Exam Lactate Level 02/05/19 11:00: Lactic Acid Level 2.59*H 02/05/19 13:14: Lactic Acid Level 3.03*H Zainab SINHA MD Feb 07, 2019 1:02 pm
[2019-02-07 15:58] VITALS: BP 141/79
[2019-02-07 20:00] VITALS: BP 132/59
[2019-02-08 00:47] VITALS: BP 137/66
[2019-02-08] MEDS: ACETAMINOPHEN 325 MG TABLET PO PRN (04:10)
[2019-02-08 04:41] VITALS: BP 156/70
[2019-02-08] MEDS: MULTIVIT W/MINERALS TAB (THERAGRAN M) PO SCH (06:03)
[2019-02-08 06:34] LABS: BASOPHILS % (AUTO) 1 % (0-10); EOSINOPHILS # (AUTO) 0.1 10^3/uL (0.0-0.3); EOSINOPHILS % (AUTO) 2 % (0-10); HEMATOCRIT 32 % (35-52); HEMOGLOBIN 10.8 G/DL (11.5-16.0); LYMPHOCYTES # (AUTO) 1.1 X 10^3 (1.0-4.0); LYMPHOCYTES % (AUTO) 19 % (12-44); MEAN CORPUSCULAR HEMOGLOBIN 26 PG (25-34); MEAN CORPUSCULAR HGB CONC 34 G/DL (32-36); MEAN CORPUSCULAR VOLUME 77 FL (80-99); MEAN PLATELET VOLUME 10.7 FL (7.4-10.4); MONOCYTES # (AUTO) 0.8 X 10^3 (0.0-1.0); MONOCYTES % (AUTO) 14 % (0-12); NEUTROPHILS # (AUTO) 3.8 X 10^3 (1.8-7.8); NEUTROPHILS % (AUTO) 65 % (42-75); PLATELET COUNT 310 10^3/uL (130-400); RED CELL DISTRIBUTION WIDTH 14.7 % (10.0-14.5); WHITE BLOOD COUNT 5.8 10^3/uL (4.3-11.0)
[2019-02-08 06:53] LABS: BUN/CREATININE RATIO 10; CALCIUM 9.3 MG/DL (8.5-10.1); CARBON DIOXIDE 22 MMOL/L (21-32); CHLORIDE 96 MMOL/L (98-107); CREATININE SERUM 0.73 MG/DL (0.60-1.30); GFR ESTIMATED > 60; GLUCOSE 122 MG/DL (70-105); POTASSIUM 3.2 MMOL/L (3.6-5.0); SODIUM 128 MMOL/L (135-145)
[2019-02-08] MEDS: PRAMIPEXOLE 0.5 MG TAB (MIRAPEX) PO SCH ×3 (07:59→20:53)
[2019-02-08] MEDS: DIGOXIN 0.125 MG (LANOXIN) TAB PO SCH (07:59)
[2019-02-08 08:00] VITALS: BP 190/85
[2019-02-08] MEDS: meTOproloL SUCCINATE 50 MG (TOPROL XL) TAB PO SCH (08:00)
[2019-02-08] MEDS: PANTOPRAZOLE 40 MG (PROTONIX) TAB PO SCH (08:00)
[2019-02-08] MEDS: GLYCOPYRROLATE 1 MG PO SCH ×2 (08:00→20:54)
[2019-02-08] MEDS: LOSARTAN 100 MG (COZAAR) TABLET PO SCH (08:00)
[2019-02-08 12:00] VITALS: BP 173/77
--- NOTE | 2019-02-08 12:36 | Progress Note-Hospitalist ---
Subjective HPI/CC On Admission Date Seen by Provider: Feb 08, 2019 Time Seen by Provider: 12:15 Chief complaint: Fall and found down HPI: This is a elderly white female assisted living pt of Dr. Serna who has mild dementia along with atrial fibrillation and cardiac problems who presented to the ER after found down after an undetermined amount of time on assisted living floor. Her found her. She is found to have Rhabdomyolysis and acute renal insufficiency of creatinine of 1.3 and having significant mobility problems. She has been placed on the medical surgical floor and consulting Dr. Armstrong her workforce analyst and will review her home medications. She denies any pain. Lactic acid was elevated to to Rhabdomyolysis and acute illness with dehydration. Pt will be supported with IV fluids and close monitoring. PT and OT have been consulted. Subjective/Events-last exam Patient primarily asked for her wig be put on so she looks beautiful. Sodium is up to 128. Urine lites have not been done. Blood pressure is been up. Review of Systems Neurological: Weakness Focused Exam Lactate Level 02/05/19 13:14: Lactic Acid Level 3.03*H Objective Exam Vital Signs Vital Signs Date Time Temp Pulse Resp B/P (MAP) Pulse Ox O2 Delivery O2 Flow Rate FiO2 02/08/19 08:00 97.8 68 18 190/85 (120) 100 Room Air 02/08/19 08:00 2.00 Capillary Refill : Less Than 3 Seconds General Appearance: No Apparent Distress, WD/WN, Chronically ill HEENT: PERRL/EOMI, Normal ENT Inspection, Pharynx Normal, Moist Mucous Membranes Neck: Full Range of Motion, Normal Inspection, Non Tender Respiratory: Chest Non Tender, Lungs Clear, Normal Breath Sounds, No Accessory Muscle Use, No Respiratory Distress Cardiovascular: No Edema, No Gallop, No JVD, Normal Peripheral Pulses, Systolic Murmur, Irregularly Irregular Gastrointestinal: Normal Bowel Sounds, No Organomegaly, No Pulsatile Mass, Non Tender, Soft Back: Normal Inspection, No CVA Tenderness, No Vertebral Tenderness Extremity: Normal Capillary Refill, Normal Inspection, Normal Range of Motion, Non Tender, No Calf Tenderness, No Pedal Edema Neurologic/Psychiatric: Alert, Oriented x3, No Motor/Sensory Deficits, Normal Mood/Affect, Disoriented Skin: Normal Color, Warm/Dry Lymphatic: No Adenopathy Results/Procedures Lab Laboratory Tests 02/08/19 05:40 Patient resulted labs reviewed. Assessment/Plan Assessment and Plan Assess & Plan/Chief Complaint 1. Rhabdomyolysis-resolved 2. Chronic atrial fibrillation good rate control 3. Hyponatremia we'll check urine lites. Hydrochlorothiazide is being held. 4. Senile dementia Alzheimer's type with mild delirium from hospitalization 5. Anemia possibly from chronic disease. 6. Hypertension-will increase Toprol to 100 mg a day and add Norvasc Clinical Quality Measures DVT/VTE Risk/Contraindication: Risk Factor Score Per Nursin RFS Level Per Nursing on Admit: 4+=Very High HAYES FABIAN MD Feb 08, 2019 12:36
--- NOTE | 2019-02-08 14:14 | Cardiology Progress Note ---
Cardiology SOAP Progress Note Subjective: No cardiac complaints. Objective: I&O/Vital Signs 02/08/19 02/08/19 02/08/19 02/08/19 04:41 07:00 08:00 08:00 Temp 97.8 97.8 Pulse 61 59 68 Resp 18 18 B/P (MAP) 156/70 (98) 190/85 (120) Pulse Ox 96 100 100 O2 Delivery Room Air Room Air Room Air O2 Flow Rate 2.00 02/08/19 02/08/19 12:00 12:00 Temp 98.4 Pulse 68 67 Resp 18 B/P (MAP) 173/77 (109) Pulse Ox 99 O2 Delivery Room Air 02/08/19 00:00 Intake Total 710 ml Balance 710 ml Weight (Pounds): 170 Weight (Ounces): 2.0 Weight (Calculated Kilograms): 77.878335 Constitutional: No appears stated age, No AAO x 3, No apparent distress, No PERRL, No well-developed, No well-nourished, No other Respiratory: No accessory muscle use, No respiratory distress, No chest tender , No chest expansion is symmetric; chest is bilaterally symmetric; No lungs clear to percussion; lungs clear to auscultation; No crackles, No rhonchi, No rales, No stridor, No wheezing, No pleural rub, No other Cardiovascular: regular rate-rhythm; No irregularly irregular, No extra beats, No parasternal heave is noted, No JVD, No edema, No bradycardia, No tachycardia , No point of maximal impulse, No cardiac thrills are palpable; S1 and S2; No gallop/S3, No gallop/S4, No diastolic murmur, No systolic murmur, No friction rub, No click, No other Gastrointestional: No tender, No soft, No round, No distended, No pulsatile mass, No organomegaly, No guarding, No rebound, No tenderness, No hernia, No mass, No audible bowel sounds, No abnormal bowel sounds, No abdominal bruits, No spleenomegaly, No other Neurologic/Psychiatric: no motor/sensory deficits, normal mood/affect Skin: No normal color, No warm/dry, No cyanosis, No cool, No diaphoresis, No damp, No ecchymosis, No jaundice, No mottled, No pallor, No rash, No tattoos/ piercings, No ulcerations, No rash on exposed areas, No ulcerations on exposed areas, No other Results/Procedures: Labs Laboratory Tests 02/08/19 05:40: White Blood Count 5.8, Red Blood Count 4.21L, Hemoglobin 10.8L, Hematocrit 32L, Mean Corpuscular Volume 77L, Mean Corpuscular Hemoglobin 26, Mean Corpuscular Hemoglobin Concent 34, Red Cell Distribution Width 14.7H, Platelet Count 310, Mean Platelet Volume 10.7H, Neutrophils (%) (Auto) 65, Lymphocytes (%) (Auto) 19 , Monocytes (%) (Auto) 14H, Eosinophils (%) (Auto) 2, Basophils (%) (Auto) 1, Neutrophils # (Auto) 3.8, Lymphocytes # (Auto) 1.1, Monocytes # (Auto) 0.8, Eosinophils # (Auto) 0.1, Basophils # (Auto) 0.0, Sodium Level 128L, Potassium Level 3.2L, Chloride Level 96L, Carbon Dioxide Level 22, Anion Gap 10, Blood Urea Nitrogen 7, Creatinine 0.73, Estimat Glomerular Filtration Rate > 60, BUN/ Creatinine Ratio 10, Glucose Level 122H, Calcium Level 9.3 Microbiology 02/04/19 Blood Culture - Preliminary, Resulted No growth A/P: Assessment/Dx: Rhabdomyolysis Acute renal failure Coronary artery disease Sick sinus syndrome Plan: Rhabdomyolysis status post fall. Receiving IV fluid. Does not recall syncopal episode. Has underlying Parkinson and dementia. Continue to monitor electrolytes Acute on chronic renal insufficiency, receiving IV fluids, monitor renal function Coronary artery disease, status post CABG 2003 with most recent stress test February 2013. She continues to be asymptomatic. 2-D echocardiogram done May 2015 revealed normal left ventricular size with EF 60 percent. Continue to monitor Parkinson disease, progressive weakness. Followed and managed by primary care physician Hypertension, restart home medication monitor blood pressure Hyperlipidemia, continue to monitor lipids Sick sinus syndrome, status post permanent pacemaker placement. Status post pacemaker generator replacement device for dual-chamber on January 25, 2016 pacemaker checkup was done in January 2018 showing good sensing and capture activity, she is currently in persistent atrial fibrillation, evaluate 12-lead EKG Chronic persistent atrial fibrillation with chronic coumadinization. Maintained on Eliquis, was on 5 mg daily, hold for now and evaluate for any bleed then we can restart at 2.5 mg twice daily if no active bleeding was noted. Defer to the primary team for advise on bleeding risk. History Crohn's disease with rectal ulcer, currently stable. Continue to monitor, followed and managed by primary care physician Mild bilateral nonobstructive carotid artery stenosis-most recent carotid duplex August 2017, continue to monitor Thank you for your consultation. Please call me if you have any questions. Phyllis Sinha MD, FACP, FACC, FSCAI, FHRS, CCDS Interventional Cardiology Cardiac Electrophysiology Vascular Medicine and Endovascular Interventions Zainba SINHA MD Feb 08, 2019 2:14 pm
[2019-02-08 15:44] VITALS: BP 134/73
[2019-02-08 20:00] VITALS: BP 147/67
[2019-02-09 00:14] VITALS: BP 171/76
[2019-02-09 04:00] VITALS: BP 184/82
[2019-02-09] MEDS ORDERED: amLODIPine 2.5MG (NORVASC) TAB ONE (05:41)
[2019-02-09] MEDS: MULTIVIT W/MINERALS TAB (THERAGRAN M) PO SCH (05:47)
[2019-02-09 08:00] VITALS: BP 180/76
[2019-02-09] MEDS ORDERED: meTOproloL SUCCINATE 50 MG (TOPROL XL) TAB PO SCH (09:00)
[2019-02-09] MEDS ORDERED: amLODIPine 2.5MG (NORVASC) TAB PO SCH (09:00)
[2019-02-09] MEDS: LOSARTAN 100 MG (COZAAR) TABLET PO SCH (09:21)
[2019-02-09] MEDS: PANTOPRAZOLE 40 MG (PROTONIX) TAB PO SCH (09:22)
[2019-02-09] MEDS: GLYCOPYRROLATE 1 MG PO SCH (09:22)
[2019-02-09] MEDS: DIGOXIN 0.125 MG (LANOXIN) TAB PO SCH (09:24)
[2019-02-09] MEDS: PRAMIPEXOLE 0.5 MG TAB (MIRAPEX) PO SCH ×2 (09:25→15:01)
--- NOTE | 2019-02-09 09:39 | NUR ---
CM/SS. Patient will return to [facility] under Medicare skilled status when medically stable. CARE Assessment will be required. Request PT/OT/ST therapies.
--- NOTE | 2019-02-09 10:53 | Physical Therapy Daily Note ---
PT Daily Note-Current Subjective Pt states she would like to go into the bathroom and fix her wig. Agreeable to PT session and walking this morning. Nsg states pt did not sleep well at all Saturday night and then slept most of the day yesterday and had been weaker. Pain Numeric Pain Scale: 0-No Pain Appearance Pt sitting up in recliner upon arrival, Pt's present A end of session, pt sitting up in recliner, chair alarm activated, with LE's elevated, call light phone and bedside table within reach, present and pt on phone with daughter Mental Status Patient Orientation: Person, Confused, Eyes Open Transfers Therapy Code Descriptions/Definitions Functional [place] Measure: 0=Not Assessed/NA 4=Minimal Assistance 1=Total Assistance 5=Supervision or Setup 2=Maximal Assistance 6=Modified [place] 3=Moderate Assistance 7=Complete [place] Therapy Quality Codes: 6 Independent with activity with or without an assistive device 5 Patient requires set up or clean up by helper. Patient completes activity by themselves 4 Supervision or touching assist (CGA). [place] provide cues , steadying assist 3 The helper provides less than half the effort to complete the activity 2 The helper provides more than half the effort to complete the activity 1 Dependent. The helper does all the effort to complete an activity 7 Patient refused to complete or attempt activity 9 The patient did not perform the activity before the current illness or injury 88 Not attempted due to Medical conditions or safety concerns Transfers (B, C, W/C) (FIM): 5 Sit to/from Stand: 5 Pt able to stand upon 1st attempt with each transition, requires verb instruction for hand placement during sit to and from stand Gait Training Gait (FIM): 5 Distance (FIM): 3=150 ft Distance: 250' Gait Level of Assist: 5 Gait Persons Needed: 1 Gait Assistive Device: FWW improved gait speed. Good step length, decreased step height. No LOB or unsteadiness during gait distance, one standing rest break Treatments transfer, gait, safety, balance, bathroom, functional mobility, activity tolerance Assessment Current Status: Good Progress PT Short Term Goals Short Term Goals Time Frame: Feb 13, 2019 Transfers (B,C,W/C) (FIM): 5 Gait (FIM): 2 Gait Distance Comment: 50' Gait Level of Assist: 4 Gait Assistive Device: FWW PT Plan Treatment/Plan Treatment Plan: Continue Plan of Care Treatment Plan: Bed Mobility, Education, Functional Activity Vish, Functional Strength, Gait, Safety, Therapeutic Exercise, Transfers Treatment Duration: Feb 13, 2019 Frequency: 6 times per week Estimated Hrs Per Day: .25 hour per day (15-30') Patient and/or Family Agrees t: Yes Safety Risks/Education Patient Education: Gait Training, Transfer Techniques, Safety Issues Teaching Recipient: Patient, Family Teaching Methods: Demonstration, Discussion Response to Teaching: Verbalize Understanding, Return Demonstration, Reinforcement Needed Time/GCodes Time In: 1025 Time Out: 1048 Total Billed Treatment Time: 23 Total Billed Treatment 1 visit, GT x 1 unit, FA x 1 unit NATANAEL ROTHMAN PTA Feb 09, 2019 10:53
[2019-02-09 12:00] VITALS: BP 152/61
--- NOTE | 2019-02-09 14:18 | Progress Note-Hospitalist ---
Progress Note Progress Notes/Assess & Plan Date Seen 02/09/19 Time Seen by Provider: 13:30 Assessment & Plan The patient is an 88-year-old white female known to me. Her grandson and my son were high school classmates together. She is increasingly demented. She lives at [facility] assisted living with her who is much more reliable. She apparently was found down on the floor several days ago and had some evidence of muscle damage as well as a modest elevation in her creatinine. Her lactic acid was also elevated. No evidence of infection was noted. She is improved and is ready for discharge back to [facility]. Her initial status will be that of skilled to attempt to get her back on her feet again. Physical exam: She is alert but not oriented. She does not remember male although with known each other for a number of years. Lungs were clear to auscultation. CV was irregular. Extremities showed no pedal edema. Impression: Fall at assisted living. 2.evidence of muscle injury presumably as a function of time down on the floor. 3.moderate to severe dementia. JAILYN MILLER MD Feb 09, 2019 14:18
--- NOTE | 2019-02-09 14:26 | Discharge Inst-Skilled Nursing ---
Discharge Inst-Skilled NF Chief Complaint Chief complaint: Fall and found down HPI: This is a elderly white female assisted living pt of Dr. Serna who has mild dementia along with atrial fibrillation and cardiac problems who presented to the ER after found down after an undetermined amount of time on assisted living floor. Her found her. She is found to have Rhabdomyolysis and acute renal insufficiency of creatinine of 1.3 and having significant mobility problems. She has been placed on the medical surgical floor and consulting Dr. Armstrong her pacu rn and will review her home medications. She denies any pain. Lactic acid was elevated to to Rhabdomyolysis and acute illness with dehydration. Pt will be supported with IV fluids and close monitoring. PT and OT have been consulted. Patient Instructions Patient Problems: Atrial fibrillation 2.chronic renal disease 3.moderate to severe dementia 4.muscle injury/elevated creatine kinase 5.elevated lactic acid likely a function of renal disease and not sepsis. Goal: Restored to ability to live at assisted living with her . Consult/Follow Up/Orders Skilled NF Admit to: [facility] Certification ([facility]) I certify that SNF services are required to be given on an inpatient basis because of the above named patient's need for half-way care on a continuing basis for the conditions(s) for which he/she was receiving inpatient hospital services prior to his/her transfer to the SNF. Long Term Facility Order: Metal [employer] Framer-Evaluate & Treat, Physical Therapy-Evaluate & Treat, Speech Language-Evaluate & Treat Oxygen Delivery Method: Room Air Discharge Diet: No Restrictions Daily Activity as Tolerated: Yes New & Resume Previous Orders Freddy Miller Feb 09, 2019 14:23 FREDDY MILLER MD Feb 09, 2019 14:26
--- NOTE | 2019-02-09 15:20 | NUR ---
CM/SS. Patient discharged to new Medicare skilled placement with [facility] via their transport at 1530. Goal is short term therapies and return to assisted living there with her spouse. Facility understands to bring clothing for patient and wheelchair. CARE Assessment completed with patient, faxed to [facility] and [facility]. Faxed orders, prepared continuum of care packet to accompany patient. Called spouse at [facility] to let him know of plan, unit RN fully updated.
--- NOTE | 2019-02-09 15:30 | NUR ---
Protective Services Officer support offered through prayer, active listening and soothing touch. Pt is Hindu and demonstrates as active prayer life. At the close of our visit the pt said she did not want to eat the rest of her lunch except for her salad.
[2019-02-09 16:04] VITALS: BP 152/61
--- NOTE | 2019-02-09 16:04 | NUR ---
REPORT CALLED TO [facility], [facility] STAFF HERE TO TAKE PATIENT TO [facility], STAFF ACCOMPANIED PATIENT TO VEHICLE.
--- NOTE | 2019-02-09 16:53 | Cardiology Progress Note ---
Cardiology SOAP Progress Note Subjective: No cardiac complaints. Objective: I&O/Vital Signs 02/09/19 02/09/19 02/09/19 02/09/19 07:16 08:00 08:00 12:00 Temp 98.6 98.0 Pulse 64 72 64 Resp 18 18 B/P (MAP) 180/76 (110) 152/61 (91) Pulse Ox 100 93 94 O2 Delivery Room Air Room Air Room Air O2 Flow Rate 2.00 02/09/19 00:00 Intake Total 400 ml Output Total 900 ml Balance -500 ml Weight (Pounds): 170 Weight (Ounces): 2.0 Weight (Calculated Kilograms): 77.973235 Constitutional: No appears stated age, No AAO x 3, No apparent distress, No PERRL, No well-developed, No well-nourished, No other Respiratory: No accessory muscle use, No respiratory distress, No chest tender , No chest expansion is symmetric; chest is bilaterally symmetric; No lungs clear to percussion; lungs clear to auscultation; No crackles, No rhonchi, No rales, No stridor, No wheezing, No pleural rub, No other Cardiovascular: regular rate-rhythm; No irregularly irregular, No extra beats, No parasternal heave is noted, No JVD, No edema, No bradycardia, No tachycardia , No point of maximal impulse, No cardiac thrills are palpable; S1 and S2; No gallop/S3, No gallop/S4, No diastolic murmur, No systolic murmur, No friction rub, No click, No other Gastrointestional: No tender, No soft, No round, No distended, No pulsatile mass, No organomegaly, No guarding, No rebound, No tenderness, No hernia, No mass, No audible bowel sounds, No abnormal bowel sounds, No abdominal bruits, No spleenomegaly, No other Neurologic/Psychiatric: no motor/sensory deficits, normal mood/affect Skin: No normal color, No warm/dry, No cyanosis, No cool, No diaphoresis, No damp, No ecchymosis, No jaundice, No mottled, No pallor, No rash, No tattoos/ piercings, No ulcerations, No rash on exposed areas, No ulcerations on exposed areas, No other Results/Procedures: Labs Microbiology 02/04/19 Blood Culture - Final, Complete No growth A/P: Assessment/Dx: Rhabdomyolysis Acute renal failure Coronary artery disease Sick sinus syndrome Plan: Rhabdomyolysis status post fall. Does not recall syncopal episode. Has underlying Parkinson and dementia. Acute on chronic renal insufficiency, receiving IV fluids, monitor renal function Coronary artery disease, status post CABG 2003 with most recent stress test February 2013. She continues to be asymptomatic. 2-D echocardiogram done May 2015 revealed normal left ventricular size with EF 60 percent. Continue to monitor Parkinson disease, progressive weakness. Followed and managed by primary care physician Hypertension, restart home medication monitor blood pressure Hyperlipidemia, continue to monitor lipids Sick sinus syndrome, status post permanent pacemaker placement. Status post pacemaker generator replacement device for dual-chamber on January 25, 2016 pacemaker checkup was done in January 2018 showing good sensing and capture activity, she is currently in persistent atrial fibrillation, evaluate 12-lead EKG Chronic persistent atrial fibrillation with chronic coumadinization. Maintained on Eliquis, was on 5 mg daily, hold for now and evaluate for any bleed then we can restart at 2.5 mg twice daily if no active bleeding was noted. Defer to the primary team for advise on bleeding risk. History Crohn's disease with rectal ulcer, currently stable. Continue to monitor, followed and managed by primary care physician Mild bilateral nonobstructive carotid artery stenosis-most recent carotid duplex August 2017, continue to monitor Thank you for your consultation. Please call me if you have any questions. Phyllis Sinha MD, FACP, FACC, FSCAI, FHRS, CCDS Interventional Cardiology Cardiac Electrophysiology Vascular Medicine and Endovascular Interventions Zainab SINHA MD Feb 09, 2019 4:53 pm
== END 2019-02-09 16:04 | DRG 565 ==
LOC: EDUNIT# 05:59 → ER 06:02 → 4TH 09:50
PROVIDERS: ADMIT Internal Medicine; ATTEND Internal Medicine
DX: T79.6XXA Traumatic ischemia of muscle, initial encounter (principal); N17.9 Acute kidney failure, unspecified; E87.1 Hypo-osmolality and hyponatremia; I48.1 Persistent atrial fibrillation; K50.90 Crohn's disease, unspecified, without complications; E86.0 Dehydration; I95.1 Orthostatic hypotension; I25.10 Atherosclerotic heart disease of native coronary artery without angina pectoris; S00.12XA Contusion of left eyelid and periocular area, initial encounter; M25.551 Pain in right hip; M25.511 Pain in right shoulder; M25.521 Pain in right elbow; D63.8 Anemia in other chronic diseases classified elsewhere; G30.9 Alzheimer's disease, unspecified; F02.80 Dementia in other diseases classified elsewhere, unspecified severity, without behavioral disturbance, psychotic disturbance, mood disturbance, and anxiety; G20 Parkinson's disease; J45.909 Unspecified asthma, uncomplicated; I12.9 Hypertensive chronic kidney disease with stage 1 through stage 4 chronic kidney disease, or unspecified chronic kidney disease; N18.9 Chronic kidney disease, unspecified; E11.9 Type 2 diabetes mellitus without complications; M19.91 Primary osteoarthritis, unspecified site; R74.0 Nonspecific elevation of levels of transaminase and lactic acid dehydrogenase [LDH]; F41.9 Anxiety disorder, unspecified; F32.9 Major depressive disorder, single episode, unspecified; E78.5 Hyperlipidemia, unspecified; W19.XXXA Unspecified fall, initial encounter; Y92.098 Other place in other non-institutional residence as the place of occurrence of the external cause; Z95.0 Presence of cardiac pacemaker; Z95.1 Presence of aortocoronary bypass graft; Z79.84 Long term (current) use of oral hypoglycemic drugs
CPT/HCPCS: 36415; 70450; 71045; 72125; 72192; 73030; 73080; 80048; 80053; 81000; 82550; 83605; 85007; 85025; 85027; 86141; 87040; 94760; 96360; 96361